=== PATIENT | female | born 1945 | race Caucasian/White ===

== ENCOUNTER → 2016-07-18 | Outpatient (CLI) | payer OTHER ==
[~2016-07-18] MED LIST: ACET-1256 PO; ASPI81TA28 PO; ATEN50TA8 PO; CALC-51 PO; CLIN150C PO; DIPH25TA61 PO; FLUT0.15 NAE; GLUCTAB18 PO; HYOS1TAB PO; LEVO150T9 PO; LISI-461 PO; LTRCR30 TOP; MISCCAP80 PO; MULT-506 PO; PSYL0.524 PO; RANI300T2 PO; SIMV40TA2 PO; ULT50X PO; VITAMIN D PO
--- NOTE | 2016-07-18 13:24 | MAMMOGRAPHY REPORT ---
BILATERAL DIGITAL SCREENING MAMMOGRAM TOMOSYNTHESIS WITH CAD: 07/18/2016 CLINICAL HISTORY: Routine screening. Patient has no complaints. TECHNIQUE: Breast tomosynthesis in addition to standard 2D mammography was performed. Current study was also evaluated with a Computer Aided Detection (CAD) system. COMPARISON: Comparison is made to exams dated: 07/16/2015 mammogram, 07/10/2014 mammogram, 06/13/2013 m ammogram, 10/25/2009 mammogram - [facility], and 10/23/2008. BREAST COMPOSITION: There are scattered areas of fibroglandular density in both breasts. FINDINGS: No suspicious masses, calcifications, or areas of architectural distortion are noted in e ither breast. There has been no significant interval change compared to prior exams. There are stab le postsurgical changes in the right lower inner quadrant from prior lumpectomy; a linear scar marke r denotes a scar on the right breast. Faint focal asymmetry in the left upper outer quadrant is sta ble dating back to the 2007 exam. A few scattered bilateral benign-appearing calcifications are not significantly changed. IMPRESSION: ACR BI-RADS CATEGORY 2: BENIGN There is no mammographic evidence of malignancy. A 1 year screening mammogram is recommended. The p atient will receive written notification of the results. Approximately 10% of breast cancers are not detected with mammography. A negative mammographic repor t should not delay biopsy if a clinically suggestive mass is present. Jasmina Sun M.D. /:07/18/2016 10:38:36 Bioinformatics Associate: Tana Leonard, [facility] letter sent: Normal 1/2 BI-RADS Code: ACR BI-RADS Category 2: Benign
== END | disposition home or self-care (01) ==
LOC: C.MAMM 09:18
PROVIDERS: ATTEND Family Medicine
DX: Z12.31 Encounter for screening mammogram for malignant neoplasm of breast (principal); Z85.3 Personal history of malignant neoplasm of breast

== ENCOUNTER 2016-08-11 08:02 | Inpatient (IN) | payer OTHER ==
[2016-07-13 10:19] VITALS: BMI 28.0
--- NOTE | 2016-07-13 10:52 | PAT Medication Instructions ---
Service Date Jul 13, 2016. Current Home Medication List Acetaminophen (Tylenol), 1,000 MG PO PRN Aspirin (Aspirin Ec), 81 MG PO QPM Atenolol (Tenormin), 50 MG PO QAM Clindamycin Hcl (Cleocin), 600 MG PO UD PRN for N Clotrimazole (Lotrimin 1%), 1 DOSE TOP PRN Diphenhydramine Hcl (Allergy), 25 MG PO PRN Fluticasone Propionate (Nasal) (Flonase Allergy Relief), 2 SPRAYS ANDRES PN Glucosamine-Chondroitin (Osteo Bi-Flex Regular Str), 1 TAB PO QPM Hyoscyamine Sulfate (Levsin), 150 MG PO PRN Levothyroxine Sodium (Levothyroxine Sodium), 1 TAB PO QAM Lisinopril (Zestril), 10 MG PO QAM Multivitamin (Multivitamin), 1 TAB PO QAM Probiotic Product (Probiotic), 1 TAB PO NOON Psyllium (Metamucil), 1 DOSE PO PRN Ranitidine (Zantac), 300 MG PO BID PRN for RN Simvastatin (Zocor), 40 MG PO QPM [Calcium], 600 MG PO QPM [Vitamin D], 400 PO QPM Medication Instructions For Your Scheduled Surgery Clindamycin Hcl (Cleocin), 600 MG PO UD PRN for N (patient only take prior to dental procedures) - Hold the following medications 2 weeks prior to surgery: Glucosamine-Chondroitin (Osteo Bi-Flex Regular Str), 1 TAB PO QPM - Hold the following medications 24 hours prior to surgery: Clotrimazole (Lotrimin 1%), 1 DOSE TOP PRN - Hold the following medications the morning of surgery: Ranitidine (Zantac), 300 MG PO BID PRN for RN Psyllium (Metamucil), 1 DOSE PO PRN Probiotic Product (Probiotic), 1 TAB PO NOON Multivitamin (Multivitamin), 1 TAB PO QAM Lisinopril (Zestril), 10 MG PO QAM Hyoscyamine Sulfate (Levsin), 150 MG PO PRN Fluticasone Propionate (Nasal) (Flonase Allergy Relief), 2 SPRAYS ANDRES PN Diphenhydramine Hcl (Allergy), 25 MG PO PRN - Take the following medications the morning of surgery with a sip of water: Levothyroxine Sodium (Levothyroxine Sodium), 1 TAB PO QAM Atenolol (Tenormin), 50 MG PO QAM Acetaminophen (Tylenol), 1,000 MG PO PRN - Take the following medications as scheduled the night before surgery: [Calcium], 600 MG PO QPM [Vitamin D], 400 PO QPM Simvastatin (Zocor), 40 MG PO QPM Ranitidine (Zantac), 300 MG PO BID PRN for RN Hyoscyamine Sulfate (Levsin), 150 MG PO PRN Psyllium (Metamucil), 1 DOSE PO PRN Fluticasone Propionate (Nasal) (Flonase Allergy Relief), 2 SPRAYS ANDRES PN Diphenhydramine Hcl (Allergy), 25 MG PO PRN Acetaminophen (Tylenol), 1,000 MG PO PRN Aspirin (Aspirin Ec), 81 MG PO QPM (okay to continue per surgeon) If you have any questions please call us at [phone] (Erin Busby PA-C) or [phone] or [phone]
--- NOTE | 2016-07-13 11:23 | DIAGNOSTIC IMAGING REPORT ---
CHEST PREADMISSION(PA/LAT) CLINICAL HISTORY: PAT preoperative evaluation COMPARISON STUDY: 03/11/2013 FINDINGS: The bones soft tissues and hemidiaphragms are normal. The cardiomediastinal silhouette is normal. The lungs are clear. The pulmonary vasculature is normal. IMPRESSION: Negative chest. Electronically signed by: Mal Contreras M.D. 07/13/2016 11:21 AM Dictated Date/Time: 07/13/2016 11:20 AM
[2016-07-13 11:29] LABS: URINE APPEARANCE CLEAR (CLEAR); URINE BILIRUBIN NEG (NEG); URINE COLOR YELLOW; URINE EPITHELIAL CELL AUTO 0-5 /lpf (0-5); URINE NITRITE NEG (NEG); URINE PH 5.5 (4.5-7.5); URINE SPECIFIC GRAVITY 1.001 (1.000-1.030); UROBILINOGEN NEG (NEG)
[2016-07-13 11:31] LABS: BASO % 0.6 %; BASO ABS # 0.03 K/uL (0-0.2); COMPLETE YES; EOS % 5.5 %; HEMATOCRIT 40.2 % (37-47); IG% 0.2 %; LYMPH % 29.3 %; LYMPH ABS # 1.38 K/uL (1.2-3.4); MEAN CELL VOLUME 91.4 fL (80-100); MEAN CORPUSCULAR HEMOGLOBIN 30.9 pg (25-34); MEAN CORPUSCULAR HGB CONC 33.8 g/dl (32-36); MEAN PLATELET VOLUME 10.7 fL (7.4-10.4); MONO % 9.3 %; NEUT % 55.1 %; PLATELET COUNT 231 K/uL (130-400); WHITE BLOOD COUNT 4.71 K/uL (4.8-10.8)
[2016-07-13 11:36] LABS: MANUAL MICROSCOPIC REQUIRED? NO; REVIEW REQ? NO
[2016-07-13 11:39] LABS: INR 0.9 (0.9-1.1); PARTIAL THROMBOPLASTIN RATIO 1.1; PROTHROMBIN TIME (PATIENT) 10.1 SECONDS (9.0-12.0)
[2016-07-13 11:43] LABS: BUN/CREATININE RATIO 17.7 (10-20); CALCIUM 9.2 mg/dl (8.5-10.1); CREATININE 0.62 mg/dl (0.60-1.20)
--- NOTE | 2016-08-09 17:22 | HISTORY & PHYSICAL EXAMINATION ---
DATE OF ADMISSION: 08/11/2016 CHIEF COMPLAINT: Primary osteoarthritis of the right knee. HISTORY OF PRESENT ILLNESS: Dennise is a pleasant 71-year-old female who has been complaining of progressive right knee pain. X-rays and clinical examination have been diagnostic for primary osteoarthritis of the right knee. After failing years of conservative treatment including multiple injections, she elected to proceed with a right total knee arthroplasty. She understands the risks, benefits, and alternatives to procedure and then elected to proceed. PAST MEDICAL HISTORY: Significant for hyperlipidemia, hypertension, breast cancer and ulcers. PAST SURGICAL HISTORY: Significant for a left total shoulder arthroplasty in 2012, left total knee arthroplasty, cholecystectomy, breast cancer removal, hernia repair and hysterectomy. ALLERGIES: PENICILLINS. MEDICATIONS: Include atenolol, lisinopril, Synthroid, anastrozole. aspirin, Osteo Bi-Flex, calcium, vitamin D, antihistamine, Nexium, Naprosyn and Aleve. FAMILY HISTORY: Noncontributory. SOCIAL HISTORY: She is . She rarely drinks. She is moderately active. She is an independent ambulator without assistance. REVIEW OF SYSTEMS: She complains of right knee pain. All other pertinent review of systems is negative. PHYSICAL EXAMINATION: GENERAL: She is awake, alert and oriented x3. She is in no apparent distress. She is very pleasant. HEENT: Pupils equal, round and reactive to light. Extraocular motion intact. Oral mucosa is pink and moist. HEART: Regular rate per radial pulse. LUNGS: Astrid symmetrically bilaterally with no audible breath sounds. ABDOMEN: Soft, nontender, and nondistended. MUSCULOSKELETAL: On physical examination of her right knee, she does ambulate independently. She has no swelling or effusion. She has good motion from 0-130 degrees. She has no instability. She has tenderness to palpation over the lateral joint line and the distal lateral femoral condyle. No pain with hip motion. X-RAYS: Radiographs performed of the right knee show a slight valgus deformity with mostly lateral compartmental arthritis. There is a loss of joint space in the lateral compartment and lateral-sided osteophyte formation. IMPRESSION: Osteoarthritis of the right knee. PLAN: We will proceed with a Biomet Vanguard right total knee arthroplasty. Postoperatively, she will be kept for 2 midnights in the hospital for postoperative medical management. We will start her on aspirin 325 mg twice a day postoperatively for DVT prophylaxis. MTDD
[~2016-08-11] VITALS: Ht 162.6 cm; Wt 75.5 kg
[2016-08-11] VITALS (8 sets, daily range): BP systolic 115–173; BP diastolic 67–88; PULSE 49–60; TEMP 35.6–36.8; O2SAT 96–100; Ht 162.6 cm; Wt 75.5 kg
[~2016-08-11 08:02] MED LIST changes: +ACETAMINOPHEN 500 MG TAB PO SCH; +BUPIVACAINE 0.5 % 5 MG/1 ML PF 10ML VIAL ONE; +BUPIVACAINE/EPINEPHRINE 0.25% 1:200,000 30 ML VIAL ONE; +FAMOTIDINE 20 MG TAB PO SCH; +GABAPENTIN 300 MG CAP PO SCH; +LACTATED RINGER'S 1000ML 1,000 ML IV SCH; +LACTATED RINGER'S 1000ML IV SCH; +ROPIVACAINE 5MG/ML 30 ML 150 MG, BUPIVACAINE/EPINEPHR 0.5% MPF 30 ML, KETOROLAC TROMETH... INFIL SCH; -ULT50X PO; +VANCOMYCIN INJ 1,150 MG in SODIUM CHLORIDE 0.9% 250ML 250 ML IV SCH
[2016-08-11] MEDS ORDERED: MIDAZOLAM HCL 1 MG/ML 2ML VIAL ONE (08:42)
[2016-08-11] MEDS ORDERED: ONDANSETRON INJ 2 MG/ML 2 ML VIAL ONE (08:42)
[2016-08-11] MEDS ORDERED: FENTANYL CITRATE INJ 50 MCG/1 ML 2 ML VIAL ONE (08:42)
[2016-08-11] MEDS ORDERED: PROPOFOL IV EMULSION 10 MG/ML 20 ML VIAL IV ONE (08:42)
--- NOTE | 2016-08-11 08:59 | History & Physical Bridge Note ---
H&P Re-Evaluation Bridge Note: I have examined the patient, reviewed the History & Physical and in the interval since the performance of the History & Physical I have noted the following changes of clinical significance: No changes noted
[2016-08-11] MEDS ORDERED: ORTHO JOINT ANESTHETIC ONE (09:44)
[2016-08-11] MEDS ORDERED: BACITRACIN 50000 UNIT VIAL ONE (09:44)
[2016-08-11] MEDS ORDERED: FENTANYL CITRATE INJ 50 MCG/1 ML 2 ML VIAL IV PRN (09:45)
[2016-08-11] MEDS ORDERED: EpHEDrine SULFATE INJ 50 MG/ML AMP IV PRN (09:45)
[2016-08-11] MEDS ORDERED: ATROPINE SULFATE 0.1 MG/ML 5ML SYR IV PRN (09:45)
[2016-08-11] MEDS ORDERED: HYDROmorphone INJ 2 MG/ML SYR/VIAL IV PRN (09:45)
[2016-08-11] MEDS ORDERED: MEPERIDINE HCL 25 MG/ML CARP IV PRN (09:45)
[2016-08-11] MEDS ORDERED: FLUMAZENIL 0.1 MG/1 ML 10 ML VIAL IV PRN (09:45)
[2016-08-11] MEDS ORDERED: ONDANSETRON INJ 2 MG/ML 2 ML VIAL IV PRN ×2 (09:45→13:15)
[2016-08-11] MEDS ORDERED: PHENYLEPHRINE 100MCG/ML 5ML SYR IV PRN (09:45)
[2016-08-11] MEDS ORDERED: LABETALOL HCL IV 5 MG/ML 20ML IV PRN (09:45)
[2016-08-11] MEDS ORDERED: NALOXONE HCL 0.4 MG/1 ML VIAL/CARP IV PRN (09:45)
[2016-08-11] MEDS: TRANEXAMIC ACID INJ 1,000 MG in SODIUM CHLORIDE 0.9% 100ML 100 ML IV SCH ×2 (11:17→15:28)
[2016-08-11] MEDS ORDERED: CEFAZOLIN IV 2,000 MG/60 ML D5W IV ONE (11:25)
[2016-08-11] MEDS ORDERED: NURSING VERBAL MED ORDER STA (11:32)
[2016-08-11] MEDS ORDERED: EpHEDrine SULFATE 50MG/5ML SYR ONE (12:04)
--- NOTE | 2016-08-11 13:01 | [facility] Post Operative Brief Note ---
Immediate Operative Summary Operative Date Aug 11, 2016. Pre-Operative Diagnosis Primary osteoarthritis of the right knee Post-Operative Diagnosis Primary osteoarthritis of the right knee Procedure(s) Performed Right Total Knee Arthroplasty Surgeon Dr Forbes Contour Grinder Surgeon(s) Tejas Joseph PA-C Estimated Blood Loss 200ml Findings as above Specimens A: Right knee bone and tissue Complication(s) None Disposition Recovery Room / PACU
[2016-08-11] MEDS ORDERED: MAGNESIUM HYDROXIDE SUSP 30 ML UDC PO PRN (13:15)
[2016-08-11] MEDS ORDERED: SILVER SULFADIAZINE 1% CR 50 GM JAR EXT PRN (13:15)
[2016-08-11] MEDS ORDERED: HYOSCYAMINE SULFATE 0.125 MG SL TAB PO PRN (13:15)
[2016-08-11] MEDS ORDERED: BISACODYL 10 MG SUPP PR PRN (13:15)
[2016-08-11] MEDS ORDERED: MoRPHine SULFATE 2 MG/ML CARP IV PRN (13:15)
[2016-08-11] MEDS ORDERED: SOD PHOSPHATE/SOD BIPHOSPHATE ENEMA 132 ML BTL PR PRN (13:15)
[2016-08-11] MEDS ORDERED: METOCLOPRAMIDE HCL INJ 5 MG/ML 2 ML VIAL IV PRN (13:15)
[2016-08-11] MEDS ORDERED: OXYCODONE HCL IR 5 MG TAB (IMMEDIATE RELEASE) PO PRN (13:15)
--- NOTE | 2016-08-11 13:47 | DIAGNOSTIC IMAGING REPORT ---
RIGHT KNEE 1 OR 2 VIEWS ROUTINE CLINICAL HISTORY: AP/LATERAL IN PACU RIGHT KNEE Right COMPARISON: None. DISCUSSION: Total joint replacement. Good contact between prosthetic and underlying bone. Surgical drains are in position. Expected soft tissue postoperative change IMPRESSION: Anatomic alignment status post total joint replacement. Electronically signed by: Mal Contreras M.D. 08/11/2016 1:46 PM Dictated Date/Time: 08/11/2016 1:45 PM
--- NOTE | 2016-08-11 13:57 | Anesthesiology Progress Note ---
Anesthesia Post Op Note Date & Time Aug 11, 2016 at 13:58 Vital Signs Pain Intensity: 0 Vital Signs Past 12 Hours Date Time Temp Pulse Resp B/P Pulse Ox O2 Delivery O2 Flow Rate FiO2 08/11/16 13:51 52 16 127/61 99 08/11/16 13:51 52 16 08/11/16 13:46 50 17 08/11/16 13:46 52 17 100 08/11/16 13:45 134/64 08/11/16 13:41 58 17 122/63 100 08/11/16 13:41 56 17 08/11/16 13:36 36.5 59 16 131/72 97 Nasal Cannula 2 08/11/16 13:36 55 14 08/11/16 13:36 56 14 131/72 98 08/11/16 08:41 36.8 60 16 173/88 99 Room Air Notes Mental Status: alert / awake / arousable, participated in evaluation Pt Amnestic to Procedure: Yes Nausea / Vomiting: adequately controlled Pain: adequately controlled Airway Patency, RR, SpO2: stable & adequate BP & HR: stable & adequate Hydration State: stable & adequate Neuraxial Anesthesia: was administered, sensory block is resolving Anesthetic Complications: no major complications apparent
--- NOTE | 2016-08-11 16:42 | OPERATIVE REPORT ---
DATE OF OPERATION: 08/11/2016 PREOPERATIVE DIAGNOSIS: Primary osteoarthritis of the right knee. POSTOPERATIVE DIAGNOSIS: Same. PROCEDURE: Right total knee arthroplasty. SURGEON: Dr. Elliott Forbes. DIRECTOR PHYSICAL THERAPY: Tejas Joseph PA-C, whose assistance was necessary for positioning of the leg and helping with instrumentation. ANESTHESIA: Spinal with a right adductor nerve block. COMPLICATIONS: None. CONDITION: Stable to PACU. IMPLANTS USED: I used a Biomet Vanguard right total knee arthroplasty system with a 67.5 right femur, 71 tibia, a 31 x 8 mm patella and a 10-mm posterior stabilized bearing. All components were cemented with Palacos-G cement. INDICATIONS: Dennise is a pleasant 71-year-old female who presented to my office with increasing right knee pain. X-rays and clinical examination were diagnostic for primary osteoarthritis of the right knee. After failing conservative treatment, she elected to undergo a right total knee arthroplasty. OPERATION AND FINDINGS: On 08/11/2016, she arrived at [facility] for the above procedure. She was seen in the preoperative holding area and the operative extremity was identified and signed. She was given a preoperative antibiotic and a spinal anesthetic and a right adductor nerve block. She was taken back to the operating room, laid on the table in supine position and given basic sedation. The right knee was then prepped and draped in sterile fashion. Time-out was done and the patient and operative extremity was properly identified. A midline incision was used directly over the patella. Dissection was taken down through the fascia and a medial parapatellar arthrotomy was used. The fat pad was removed and the medial retinaculum was released. The knee was then flexed. Medial and lateral menisci as well as the ACL were then removed. A drill was sent down the center of the femoral canal followed by an intramedullary mahin. Off that mahin, a distal femoral cutting block was placed. An 11-mm was resected off the distal femur. A posterior referencing guide was used to measure the distal femur and the distal femur measured to be a 67.5. Two drill holes were placed in 3 degrees of external rotation and 4-in-1 cutting block was impacted into place. Anterior, posterior and chamfer cuts were then made. A cutting guide was then impacted into place and the box was resected for the posterior stabilizing component. The proximal tibia was then exposed. A drill was sent down the center of the tibial canal followed by an intramedullary mahin. Off that mahin, a proximal tibial resection guide was placed. A 2 mm was resected off the low medial side. The tibia then measured to be a size 71 and was set in the appropriate rotation, drilled and then punched. The femoral and tibial trials were placed as well as a 10-mm posterior stabilized bearing. The knee felt to be stable. The patella was then everted and 8 mm was resected off the posterior aspect of the patella. The patella measured to be a size 31 and 3 drill holes were placed. A trial patella was snapped into place. The knee was brought through full range of motion and felt to be stable. All trial components were then removed. The final components were then cemented in place with Palacos-G cement. Several polyethylene trials were used and a size 10 seemed to give the best fit. The final size 10 bearing was snapped into place and the anterior bar was locked. The surrounding soft tissues were irrigated with 3 liters of normal saline solution with bacitracin. All surrounding soft tissues were then injected with 100 mL of an orthopedic pain control cocktail. The extensor mechanism was closed with #2 FiberWire sutures in the superior aspect of the patella, followed by #1 Vicryl, both proximally and distally. Skin was closed with 2-0 Vicryl, 3-0 V-Loc suture and a Prineo dressing. She was then placed in a compressive dressing and taken to the postanesthesia care unit in stable condition. She tolerated the procedure well. I attest to the content of the Intraoperative Record and any orders documented therein. Any exceptio ns are noted below.
[2016-08-11] MEDS: D5W AND 1/2NSS + 20MEQ KCL 1,000 ML IV SCH (17:00)
[2016-08-11] MEDS ORDERED: ACETAMINOPHEN IV 1,000 MG in EMPTY BAG 0 ML IV SCH (20:00)
[2016-08-11] MEDS: SIMVASTATIN 40 MG TAB PO SCH (20:27)
[2016-08-11] MEDS: ASPIRIN 325 MG ECTAB PO SCH (20:27)
[2016-08-11] MEDS: SENNA 8.6 MG TAB PO SCH (20:28)
[2016-08-11] MEDS: DOCUSATE SODIUM 100 MG CAP PO SCH (20:28)
[2016-08-11] MEDS: CEFAZOLIN IV 1,000 MG in DEXTROSE 5% 50ML 50 ML IV SCH (22:04)
[2016-08-11] MEDS: KETOROLAC TROMETHAMINE 15 MG/ML VIAL IV. SCH (22:05)
[2016-08-11] MEDS ORDERED: NURSING VERBAL MED ORDER ONE (23:15)
[2016-08-11] MEDS ORDERED: TRAMADOL HCL 50 MG TAB PO PRN (23:45)
[2016-08-12] VITALS (7 sets, daily range): BP systolic 91–126; BP diastolic 54–84; PULSE 58–83; TEMP 36.5–37.4; O2SAT 94–98
[2016-08-12] MEDS: D5W AND 1/2NSS + 20MEQ KCL 1,000 ML IV SCH ×2 (01:49→11:20)
[2016-08-12] MEDS: CEFAZOLIN IV 1,000 MG in DEXTROSE 5% 50ML 50 ML IV SCH (03:51)
[2016-08-12] MEDS: KETOROLAC TROMETHAMINE 15 MG/ML VIAL IV. SCH ×4 (03:52→21:39)
[2016-08-12] MEDS: LEVOTHYROXINE 150 MCG TAB PO SCH (05:35)
[2016-08-12 06:11] LABS: HEMATOCRIT 30.8 % (37-47); MEAN CELL VOLUME 92.2 fL (80-100); MEAN CORPUSCULAR HEMOGLOBIN 30.5 pg (25-34); MEAN CORPUSCULAR HGB CONC 33.1 g/dl (32-36); MEAN PLATELET VOLUME 10.8 fL (7.4-10.4); PLATELET COUNT 184 K/uL (130-400); RED BLOOD COUNT 3.34 M/uL (4.2-5.4)
[2016-08-12 06:46] LABS: BUN/CREATININE RATIO 16.4 (10-20); CALCIUM 8.4 mg/dl (8.5-10.1); CREATININE 0.57 mg/dl (0.60-1.20); POTASSIUM 4.5 mmol/L (3.5-5.1)
[2016-08-12] MEDS: MULTIVITAMIN TAB PO SCH (08:28)
[2016-08-12] MEDS: ASPIRIN 325 MG ECTAB PO SCH ×2 (08:28→20:50)
[2016-08-12] MEDS: DOCUSATE SODIUM 100 MG CAP PO SCH ×2 (08:28→20:50)
[2016-08-12] MEDS: PANTOprazole SOD 40 MG TAB PO SCH (08:28)
[2016-08-12] MEDS: LISINOPRIL 10 MG TAB PO SCH (08:30)
[2016-08-12] MEDS ORDERED: NURSING VERBAL MED ORDER ONE (09:00)
--- NOTE | 2016-08-12 09:04 | PROGRESS NOTE ---
DATE: 08/12/2016 DATE: 08/12/2016. CHIEF COMPLAINT: Status post right total knee arthroplasty postop day #1. PROGRESS: Dennise was seen and examined at bedside today. Overall, she is doing very well. She says she has very little pain in her knee. She was able to get some sleep last night. She has no complaints. PHYSICAL EXAMINATION: RIGHT KNEE: The dressing is clean and dry and the drain is to suction. She has active dorsiflexion and plantarflexion of her right ankle and sensation is intact. LABORATORY DATA: She has an H\T\H today of 10.2 and 30.8. Her vital signs are all stable on room air. She is voiding on her own. X-rays postoperatively of the right knee show the prosthesis to be in anatomic alignment without any evidence of fracture, dislocation or loosening. IMPRESSION: Status post right total knee arthroplasty postop day #1. PLAN: At this point, she is doing very well. She will be seen by physical therapy today and will work on pain control. Tomorrow the nursing staff can change the dressing, pull the drain and we are planning on discharging her to home with [facility].
[2016-08-12] MEDS: LORATADINE 10 MG TAB PO PRN (09:15)
[2016-08-12] MEDS: HYDROCODONE/ACETAMOPHEN 5/325MG TAB PO PRN ×2 (11:21→20:51)
[2016-08-12] MEDS: SENNA 8.6 MG TAB PO SCH (20:50)
[2016-08-12] MEDS: SIMVASTATIN 40 MG TAB PO SCH (21:35)
[2016-08-13] VITALS (7 sets, daily range): BP systolic 83–133; BP diastolic 51–78; PULSE 71–84; TEMP 36.8; O2SAT 95–99
[2016-08-13] MEDS: KETOROLAC TROMETHAMINE 15 MG/ML VIAL IV. SCH ×2 (03:59→10:35)
[2016-08-13] MEDS: LEVOTHYROXINE 150 MCG TAB PO SCH (05:35)
[2016-08-13] MEDS: LISINOPRIL 10 MG TAB PO SCH (07:54)
[2016-08-13] MEDS: MULTIVITAMIN TAB PO SCH (07:54)
[2016-08-13] MEDS: PANTOprazole SOD 40 MG TAB PO SCH (07:54)
[2016-08-13] MEDS: LORATADINE 10 MG TAB PO PRN (07:55)
[2016-08-13] MEDS: ASPIRIN 325 MG ECTAB PO SCH (08:28)
[2016-08-13] MEDS: DOCUSATE SODIUM 100 MG CAP PO SCH (08:28)
[2016-08-13] MEDS ORDERED: ULT50X PO (09:28)
--- NOTE | 2016-08-13 09:29 | Discharge Instructions ---
Discharge Instructions Date of Service Aug 13, 2016. Admission Reason for Admission: Right Knee Osteoarthritis Discharge Discharge Diagnosis / Problem: Right Total Knee Discharge Goals Goal(s): Decrease discomfort, Improve function Activity Recommendations Activity Limitations: resume your previous activity Shower/Bathe: may shower/bathe in 3 days . Instructions / Follow-Up Instructions / Follow-Up may shower tomorrow, leave glue dressing in place Current Hospital Diet Patient's current hospital diet: Regular Diet Discharge Diet Recommended Diet: Regular Diet Procedures Procedures Performed: Right Total Knee Arthroplasty Pending Studies Studies pending at discharge: no Medical Emergencies . Who to Call and When: Medical Emergencies: If at any time you feel your situation is an emergency, please call 911 immediately. . Non-Emergent Contact Non-Emergency issues call your: Surgeon Call Non-Emergent contact if: wound has increased drainage, wound has increased redness . "Provider Documentation" section prepared by Elliott Forbes. VTE Core Measure Inpt VTE Proph given/why not?: Other Anticoagulation (Xerelto 10mg daily for 12 days)
--- NOTE | 2016-08-13 10:04 | PROGRESS NOTE ---
DATE: 08/13/2016 CHIEF COMPLAINT: Status post right total knee arthroplasty, postop day #1. PROGRESS: Dennise was seen and examined at bedside today. She is doing well now. She did have an episode of hypotension and lightheadedness earlier this morning. She got up and got dressed and was doing fine and when she went to get her chair, she felt very lightheaded. The nursing staff put her in bed. Vital signs showed some hypotension and I was called. Since she is lying in bed, she is feeling much better. Her pain is well controlled. She has no other complaints. PHYSICAL EXAMINATION: RIGHT KNEE: The dressing has been changed and the drain has been pulled. Her knee is out in full extension. She is neurovascularly intact. VITAL SIGNS: Currently are stable on room air. IMPRESSION: Status post right total knee arthroplasty, postop day #2. PLAN: Overall, she has been doing fairly well. She did have a hypotensive episode this morning. She was just recently up with physical therapy and able to do stairs. I want to keep her until after lunch if her vital signs continued to be stable. As she was able to get up and ambulate well after lunch, I think she is safe for discharge home. However, if she does have any more hypotensive episode and I think it is reasonable to keep until tomorrow. Tentative discharge is for today after lunch. CHERYL
--- NOTE | 2016-08-13 10:47 | DISCHARGE SUMMARY ---
DISCHARGE DIAGNOSIS: Primary osteoarthritis of the right knee. PROCEDURE: Right total knee arthroplasty on 08/11/[address] Elliott Forbes. DISCHARGE INSTRUCTIONS: 1. Tramadol 50 mg every 6 hours as needed for pain. 2. Xarelto 10 mg daily for 12 days. 3. JAZMYN hose stockings for 6 weeks. 4. Follow up with Dr. Forbes in 2 weeks. 5. Call the office of Dr. Forbes with any questions or concerns. 6. Tylenol 1000 mg as needed. 7. Atenolol 50 mg daily. 8. Cleocin 600 mg as needed. 9. Kizzy 25 mg as needed. 10. Flonase 50 mcg sprays as needed. 11. Levsin 0.125 mg as needed. 12. Synthroid 150 mcg daily. 13. Zestril 10 mg daily. 14. Zocor 40 mg daily. 15. Calcium 600 mg daily. 16. Vitamin D 400 units daily. 17. Stop aspirin 81 mg daily and Zantac 300 mg twice a day. HOSPITAL COURSE: Dennise is a pleasant 71-year-old female who presented to my office with chronic right knee pain. X-rays and clinical examination were diagnostic for primary osteoarthritis of the right knee. After failing conservative treatment, she elected to undergo a right total knee arthroplasty. On 08/11/2016 she arrived at [facility] and underwent a right knee replacement without complications. She had a spinal anesthetic and a right adductor nerve block. Postoperatively, she was discharged to general orthopedic floor. Her hospital course was relatively uneventful. On postop day #1, her H\T\H was stable at 10.2 and 30.8. Her pain was well controlled. She was up and ambulating well with physical therapy. On postop day #2, the dressing was changed, the drain was pulled. She did have a hypotensive episode early in the morning, but she recovered well from that. She was able to participate well with physical therapy including stairs and I kept her until after lunch. She seemed to do better, was subsequently discharged to home with the above instructions.
== END 2016-08-13 13:52 | disposition home or self-care (01) | DRG 470 ==
LOC: ENRESERVTM → ENRESERVDT → C.ACU 08:02 → C.3E 13:06
PROVIDERS: ADMIT Orthopaedic Surgery; ATTEND Orthopaedic Surgery
PROC: 0SRC0J9 Replacement of Right Knee Joint with Synthetic Substitute, Cemented, Open Approach (ICD-10-PCS; principal; 2016-08-11 11:00)
DX: M17.11 Unilateral primary osteoarthritis, right knee (principal); I10 Essential (primary) hypertension; E78.5 Hyperlipidemia, unspecified; Z85.3 Personal history of malignant neoplasm of breast; Z96.652 Presence of left artificial knee joint; Z79.899 Other long term (current) drug therapy

== ENCOUNTER → 2017-07-19 | Outpatient (CLI) | payer OTHER ==
[~2017-07-19] MED LIST changes: -ACETAMINOPHEN 500 MG TAB PO SCH; -ASPI81TA28 PO; -BUPIVACAINE 0.5 % 5 MG/1 ML PF 10ML VIAL ONE; -BUPIVACAINE/EPINEPHRINE 0.25% 1:200,000 30 ML VIAL ONE; -FAMOTIDINE 20 MG TAB PO SCH; -GABAPENTIN 300 MG CAP PO SCH; -LACTATED RINGER'S 1000ML 1,000 ML IV SCH; -LACTATED RINGER'S 1000ML IV SCH; -RANI300T2 PO; -ROPIVACAINE 5MG/ML 30 ML 150 MG, BUPIVACAINE/EPINEPHR 0.5% MPF 30 ML, KETOROLAC TROMETH... INFIL SCH; +ULT50X PO; -VANCOMYCIN INJ 1,150 MG in SODIUM CHLORIDE 0.9% 250ML 250 ML IV SCH
--- NOTE | 2017-07-19 15:08 | MAMMOGRAPHY REPORT ---
BILATERAL DIGITAL SCREENING MAMMOGRAM TOMOSYNTHESIS WITH CAD: 07/19/2017 CLINICAL HISTORY: Routine screening. Patient has no complaints. TECHNIQUE: Breast tomosynthesis in addition to standard 2D mammography was performed. Current study was also evaluated with a Computer Aided Detection (CAD) system. COMPARISON: Comparison is made to exams dated: 07/18/2016 mammogram, 07/16/2015 mammogram, 07/10/2014 ma mmogram, 06/13/2013 mammogram, and 06/12/2012 mammogram - [facility]. BREAST COMPOSITION: There are scattered areas of fibroglandular density in both breasts. FINDINGS: No suspicious masses, calcifications, or areas of architectural distortion are noted in ei ther breast. There has been no significant interval change compared to prior exams. There are stable postsurgical changes in the right breast from prior lumpectomy. A few scattered bilateral benign-ap pearing calcifications are again noted. Asymmetries in bilateral lateral breasts are stable. IMPRESSION: ACR BI-RADS CATEGORY 2: BENIGN There is no mammographic evidence of malignancy. A 1 year screening mammogram is recommended. The pa tient will receive written notification of the results. Approximately 10% of breast cancers are not detected with mammography. A negative mammographic report should not delay biopsy if a clinically suggestive mass is present. Jasmina Sun M.D. /:07/19/2017 12:21:21 Yeast Distiller: Kelly NAVARRO)(German), [facility] letter sent: Normal 1/2 BI-RADS Code: ACR BI-RADS Category 2: Benign
== END | disposition home or self-care (01) ==
LOC: C.MAMM 09:01
PROVIDERS: ATTEND Family Medicine
DX: Z12.31 Encounter for screening mammogram for malignant neoplasm of breast (principal); Z85.3 Personal history of malignant neoplasm of breast

== ENCOUNTER 2019-06-06 04:46 | Inpatient (IN) ==
--- NOTE | 2019-06-05 10:03 | Anesthesiology Consultation ---
Date of Service June 05, 2019 Assessment & Plan (1) Encounter for pre-operative examination: Chart Review Chart Review: Acceptable Risk for Surgery, barber tool sharpener initiated (from #[id number]) and Patient seen in Pre Admission Testing History Surgery Operation Date: 06/06/19 07:00 Proposed Procedures p Right Anterior Total Hip Arthroplasty - Elliott Forbes, DO Height/Weight Height: 5 ft 4.5 in Weight: 79 kg Allergies Allergy/AdvReac Type Severity Reaction Status Date / Time adhesive Allergy Intermediate bandaids- Verified 06/06/19 05:42 redness, pruritus Penicillins Allergy Mild rash, Verified 06/06/19 05:42 mouth sores Medications Home Medications Medication Instructions Recorded Confirmed Last Taken Calcium 600 + D(3) 1 cap PO QAM 08/05/18 06/06/19 06/05/19 18:00 aspirin [Aspir-Low] 81 mg PO 08/05/18 06/06/19 06/05/19 18:00 atenolol 50 mg PO QAM 08/05/18 06/06/19 06/06/19 03:00 glucosamine-chondroitin [Osteo 1 tab PO QAM 08/05/18 06/06/19 05/23/19 18:00 Bi-Flex] levothyroxine 150 mcg PO QAM 08/05/18 06/06/19 06/06/19 03:00 lisinopril 10 mg PO QAM 08/05/18 06/06/19 06/05/19 08:00 multivitamin 1 tab PO QDD 08/05/18 06/06/19 06/05/19 18:00 simvastatin 40 mg PO 08/05/18 06/06/19 06/05/19 18:00 diphenhydramine HCl 25 mg PO Q6H PRN 04/02/19 06/06/19 Unknown hyoscyamine sulfate 0.125 mg PO Q4H PRN 04/02/19 06/06/19 06/05/19 18:00 Active Medications Generic Name Dose Route Start Last Admin Trade Name Freq PRN Reason Stop Dose Admin Acetaminophen 1,000 mg 06/06/19 06:00 06/06/19 05:57 Tylenol PO 06/06/19 18:00 1,000 mg PREOP BELKIS Administration Famotidine 20 mg 06/06/19 06:00 06/06/19 05:57 Pepcid PO 06/06/19 18:00 20 mg PREOP BELKIS Administration Gabapentin 300 mg 06/06/19 06:00 06/06/19 05:56 Neurontin PO 06/06/19 18:00 300 mg PREOP BELKIS Administration Lactated Ringer's 1,000 mls @ 15 mls/hr 06/06/19 06:00 06/06/19 05:56 Lr IV 06/06/19 18:00 15 mls/hr .Q24H BELKIS Administration Lactated Ringer's 1,000 mls @ 60 mls/hr 06/06/19 06:00 06/06/19 06:16 Lr IV 06/06/19 22:39 Not Given .[id number] BELKIS Past Medical History Medical History Hx of deep venous thrombosis post-op left knee (2006) HX: breast cancer right s/p lumpectomy/XRT (2009) Hyperlipidemia Hypertension Hypothyroidism IBS (irritable bowel syndrome) Osteoarthritis Exercise / Class Metabolic Activity II 4-5 Yardwork/Stairs/Walk up hill Past Family History Family History Other FHx: cancer Past Surgical History Surgical History History of cholecystectomy History of ERCP 08/30/18: MAC sedation at [facility] History of esophagogastroduodenoscopy (EGD) History of herniorrhaphy History of tooth extraction History of total abdominal hysterectomy and bilateral salpingo-oophorectomy History of total knee replacement LEFT/RIGHT Hx of colonoscopy Hx of lumpectomy RIGHT BREAST Hx of shoulder replacement LEFT Past Anesthesia History No Hx of Anesthesia Complications (except remote hx PONV) and No Family Hx of Anesthesia Complications History of PONV History of PONV (x1 episode) and Hx of Motion Sickness (rare) Social History Smoking Status: Former smoker Do You Dip or Chew Tobacco: No Smoking End Date: Quit years ago Hx Alcohol Use: No Hx Substance Use: No substance use type: does not use Review of Systems Rare reflux. Patient denies chest pain, shortness of breath, dyspnea on exertion, cough, wheezing, palpitations. Physical Exam Vital Signs Last Vital Signs Temp 36.7 C 06/06/19 05:34 Pulse 61 06/06/19 05:34 Resp 18 06/06/19 05:34 BP 136/72 06/06/19 05:34 Pulse Ox 95 06/06/19 05:34 VITALS BP 121/77 P 59 TEMP 98.2 SP02 95%RA RESP 16 PHYSICAL Full neck and c-spine range of motion. Full TMJ range of motion. TMD 3.5 finger breaths Mallampati Score 2 Dentition: partial upper dentures, several crowns Lungs: clear throughout to auscultation Cardiac: regular rate and rhythm, no murmurs noted Spine: normal Carotid arteries: negative bruit Extremities: no edema Testing Laboratory Results 04/08/19 WBC 5.67 H/H 14.0/41.4 PLATELETS 270 SODIUM 139 POTASSIUM 4.2 CHLORIDE 105 CO2 30 BUN 13 CREATININE 0.68 GLUCOSE 93 PT 9.8 PTT 26.8 INR 1.0 TYPE AND SCREEN A+Ab- Electrocardiogram Date: 08/30/18 Findings: + NSR @ (63) Chest X-Ray Date: 04/08/19 Cardiomediastinal and hilar silhouettes are within normal limits. No pneumothorax, large pleural effusion, overt pulmonary edema or focal airspace consolidation. Ill-defined opacity of the medial right lung apex is unchanged and may reflect a vascular pedicle. Mild hyperinflation. Ill-defined opacities project over the posterior lung bases with blunting of the posterior costophrenic angles. Degenerative changes of the shoulders and spine. Left shoulder arthroplasty. Surgical clips project over the abdominal right upper quadrant. Mild blunting of the posterior costophrenic angles with ill-defined posterior lung base opacities suggestive of atelectasis versus trace effusions/ reviewed by Dr. Noyola 04/09/19 and felt nothing further needed prior to surgery
[2019-06-06] MEDS ORDERED: ACETAMINOPHEN 500 MG TAB PO SCH (06:00)
[2019-06-06] MEDS ORDERED: CEFAZOLIN 1000MG 1,000 MG/7.5 ML SYR IV SCH (06:00)
[2019-06-06] MEDS ORDERED: LR 60ML/HR IV SCH (06:00)
[2019-06-06] MEDS ORDERED: TRANEXAMIC ACID 1,000 MG **IV Pre-op IV SCH (06:00)
[2019-06-06] MEDS ORDERED: GABAPENTIN 300 MG CAP PO SCH (06:00)
[2019-06-06] MEDS ORDERED: ROPIVACAINE 0.5% HCL/PF 150 MG, BUPIVACAINE 0.5% MPF 30 ML, EPINEPHrine 30MG/30ML (OR U... INSTIL SCH (06:00)
[2019-06-06] MEDS ORDERED: FAMOTIDINE 20 MG TAB PO SCH (06:00)
[2019-06-06] MEDS ORDERED: LR 500ML BOLUS, THEN 15ML/HR IV SCH (06:00)
[2019-06-06] MEDS ORDERED: TRANEXAMIC ACID 1,000 MG **IV Intra-op IV SCH (06:00)
[2019-06-06] MEDS ORDERED: BUPIVACAINE 0.5 % 5 MG/1 ML PF 10ML VIAL ONE (06:12)
[2019-06-06] MEDS ORDERED: LIDOCAINE HCL 2% 2 ML VIAL/AMP(20MG/ML) INFIL ONE (06:34)
[2019-06-06] MEDS ORDERED: MIDAZOLAM HCL 1 MG/ML 2ML VIAL ONE (06:34)
[2019-06-06] MEDS ORDERED: PROPOFOL IV EMULSION 10 MG/ML 20 ML VIAL IV ONE (06:34)
[2019-06-06] MEDS ORDERED: fentaNYL citrate 100 MCG/2 ML VIAL ONE (06:34)
[2019-06-06] MEDS ORDERED: ORTHO JOINT ANESTHETIC ONE (06:40)
--- NOTE | 2019-06-06 06:49 | History & Physical Bridge Note ---
Date of Service June 06, 2019 History & Physical Bridge Note I have examined the patient, reviewed the History & Physical and in the interval since the performance of the History & Physical I have noted the following changes of clinical significance: no changes noted
[2019-06-06] MEDS ORDERED: fentaNYL citrate 100 MCG/2 ML VIAL IV PRN (07:00)
[2019-06-06] MEDS ORDERED: PHENYLEPHRINE 100MCG/ML 5ML SYR IV PRN (07:00)
[2019-06-06] MEDS ORDERED: ONDANSETRON INJ 2 MG/ML 2 ML VIAL IV PRN ×2 (07:00→10:02)
[2019-06-06] MEDS ORDERED: LABETALOL HCL IV 5 MG/ML 20ML IV PRN (07:00)
[2019-06-06] MEDS ORDERED: ePHEDrine sulfate 50 MG/ML AMP IV PRN (07:00)
[2019-06-06] MEDS ORDERED: ATROPINE SULFATE 0.1 MG/ML 10ML SYR IV PRN (07:00)
[2019-06-06] MEDS ORDERED: MEPERIDINE HCL 25 MG/ML CARP IV PRN (07:00)
[2019-06-06] MEDS ORDERED: PHENYLEPHRINE HCL 10 MG/ML VIAL ONE (07:29)
[2019-06-06] MEDS ORDERED: ePHEDrine sulfate 50 MG/ML AMP ONE (07:29)
--- NOTE | 2019-06-06 08:18 | Operative Report ---
PG Post Operative Report Pre & Post Diagnosis Operation Date: 06/06/19 07:00 Pre-Op Diagnosis: RIGHT HIP DEGENERATIVE JOINT DISEASE Post-Op Diagnosis: RIGHT HIP DEGENERATIVE JOINT DISEASE I identified the patient and participated in the time-out.: Yes Procedure Operation Date: 06/06/19 07:00 Actual Procedures p Right Anterior Total Hip Arthroplasty(Right) - Elliott Forbes DO Surgeon Elliott Forbes DO Director Of Outside Sales Elliott Renae PAC Estimated Blood Loss 150 Findings Consistent with Post-Op Diagnosis Specimens Right femoral head Complications none Disposition Disposition: Recovery Room Indications Dennise is a 74-year-old female who presented my office with chronic increasing right hip and groin pain. MRI and clinical examination were diagnostic for primary osteoarthritis of the right hip. She had a right intra- articular hip injection which took care of all of her pain but did not last long. After failing conservative treatment, she elected to proceed with a right anterior total hip arthroplasty. Description of Procedure Implants used Biomet Taperloc total hip arthroplasty system with a size 17 standard offset Taperloc stem, a 50 mm G7 cup with a 25mm screw, an E1 polyethylene liner, a 36 mm ceramic head with a 0 neck. Patient arrived at the hospital for the above procedure. They were seen in the preoperative holding area and the operative extremity was identified and signed. They were given a spinal anesthetic. They were given a preoperative antibiotic and TXA. They were taken back To the operating room and laid on the table in the supine position. The leg was brought out through a Puristst leg positioner. The hip was then prepped and draped in sterile fashion. A timeout was done and the patient and the operative extremity was properly identified. An anterior approach was used. Dissection was taken down through the fascia and the tensor muscle belly was retracted laterally and the rectus was retracted medially. The circumflex vessels were identified and ligated. The capsule was then incised and tagged for later repair. The femoral neck was then cut and the femoral head was removed. The acetabulum was exposed. Time was spent doing a complete circumferential labral release. Sequential reaming of the acetabulum up to a size 49 reamer was done. Final reamings were done under fluoroscopy to ensure appropriate version. A Biomet 50 mm G7 cup was then impacted into place. A single 25 mm screw was placed. The E1 polyethylene liner was then snapped into place. Surrounding soft tissues were then injected with 100 cc of an orthopedic pain control cocktail. The proximal femur was then exposed. Sequential broaching up to a size 17 broach was done. Off that broach a size 36 head with a 0 neck was trialed. The hip was reduced and fluoroscopic images showed anatomic alignment of the implants in acceptable length. The broach was removed. The final size 17 standard offset Taperloc stem was then impacted into place. A ceramic 36 mm head with a 0 neck was then impacted into place in the hip was reduced. Final fluoroscopic images showed anatomic reduction of the hip. The capsule was then closed with #1 Vicryl suture. A dilute betadyne lavage was then done for 3 minutes. The joint was then irrigated with normal saline solution. The fascia was closed with #1 PDS suture. Skin was closed with 2-0 Vicryl, nickolas, and a Muriel VAC dressing. The patient was then transferred to a hospital bed and taken to the post anesthesia care unit in stable condition. They tolerated the procedure well. I attest to the content of the Intraoperative Record and any orders documented therein. Any exceptions are noted below.
--- NOTE | 2019-06-06 08:45 | Fluoroscopy Report ---
FL hip RT 1V CLINICAL HISTORY: RT ANTERIOR TOTAL COMPARISON STUDY: MRI of the right hip February 22, 2019. FLUOROSCOPY TIME: 30 seconds. FLUOROSCOPIC IMAGES: 2 FINDINGS: These images demonstrate anatomic alignment of a total right hip arthroplasty. Hardware is intact. No fracture or unexpected radiopaque foreign body is noted. There is an acetabular screw. IMPRESSION: Expected findings during total right hip arthroplasty. ACT 112: Negative or not required by law. Electronically signed by: Flash Harrington M.D. 06/06/2019 8:44 AM
--- NOTE | 2019-06-06 09:29 | XRay Report ---
SINGLE VIEW PELVIS; SINGLE VIEW RIGHT HIP CLINICAL HISTORY: Postoperative examination. FINDINGS: An AP portable view of the hips and pelvis with a crosstable lateral portable view of the r ight hip are obtained. A bipolar right hip arthroplasty is in near-anatomic alignment. A single corti vic lag screw transfixes the acetabular cup. No acute fracture is identified. There are expected post operative changes overlying the right hip including skin clips, subcutaneous gas, and soft tissue swe lling. [id number]-cy-[id number] degenerative changes noted in the left hip. IMPRESSION: Expected postoperative findings status post right hip arthroplasty. No acute fracture is seen. ACT 112: Negative or not required by law. Electronically signed by: Fred Eden M.D. 06/06/2019 9:28 AM
--- NOTE | 2019-06-06 09:39 | Anesthesiology Progress Note ---
Date of Service June 06, 2019 Anesthesia Post Procedure Vital Signs Vital Signs: Temp Pulse Pulse Resp BP Pulse Ox 06/06/19 09:30 36.5 C 60 15 107/56 L 93 06/06/19 09:20 59 L 16 123/59 L 95 06/06/19 09:10 59 L 16 110/57 L 92 06/06/19 09:00 62 16 108/59 L 92 06/06/19 08:50 64 17 97/61 L 98 06/06/19 08:41 36.1 C L 63 16 111/60 95 06/06/19 05:34 36.7 C 61 18 136/72 95 Transfer of Care Handoff Completed per policy Notes Mental Status: alert / awake / arousable Patient Amnestic to Procedure: Yes Nausea / Vomiting: adequately controlled Pain: adequately controlled Airway Patency, RR, SpO2: stable & adequate BP & HR: stable & adequate Hydration State: stable & adequate Neuraxial Anesthesia: was administered and sensory block is resolving Anesthetic Complications: no major complications apparent and Pt Satisfied with anesthetic care
[2019-06-06] MEDS ORDERED: METOCLOPRAMIDE HCL INJ 5 MG/ML 2 ML VIAL IV PRN (10:02)
[2019-06-06] MEDS ORDERED: SODIUM CHLORIDE 0.9% 1000ML 1,000 ML IV SCH (10:02)
[2019-06-06] MEDS ORDERED: bisacodyL 10 MG SUPP PR PRN (10:02)
[2019-06-06] MEDS ORDERED: NALOXONE HCL 0.4 MG/1 ML VIAL/CARP IV PRN (10:02)
[2019-06-06] MEDS ORDERED: MAGNESIUM HYDROXIDE SUSP 30 ML UDC PO PRN (10:02)
[2019-06-06] MEDS ORDERED: HYDROmorphone INJ 0.5 MG/0.5 ML SYR IV PRN (10:02)
[2019-06-06] MEDS: MULTIVITAMIN TAB PO SCH (10:48)
[2019-06-06] MEDS: DOCUSATE SODIUM 100 MG CAP PO SCH ×2 (10:48→20:48)
[2019-06-06] MEDS: KETOROLAC TROMETHAMINE 15 MG/ML VIAL IV SCH ×3 (10:49→21:53)
[2019-06-06] MEDS: lisinopriL 10 MG TAB PO SCH (10:49)
[2019-06-06] MEDS: CEFAZOLIN 2000MG 2,000 MG/15 ML SYR IV SCH ×2 (13:44→21:53)
[2019-06-06] MEDS: ACETAMINOPHEN 500 MG TAB PO SCH ×2 (13:44→21:53)
[2019-06-06] MEDS: RIVAROXABAN 10 MG TABLET PO SCH (16:19)
[2019-06-06] MEDS: SENNA 8.6 MG TAB PO SCH (20:48)
[2019-06-06] MEDS: SIMVASTATIN 40 MG TAB PO SCH (20:48)
[2019-06-07] MEDS: OXYCODONE HCL IR 5 MG TAB (IMMEDIATE RELEASE) PO PRN ×2 (00:42→21:18)
[2019-06-07] MEDS: LEVOTHYROXINE SODIUM 150 MCG TABLET PO SCH (05:50)
[2019-06-07] MEDS: KETOROLAC TROMETHAMINE 15 MG/ML VIAL IV SCH ×4 (05:50→22:38)
[2019-06-07] MEDS: ACETAMINOPHEN 500 MG TAB PO SCH ×3 (05:51→22:37)
[2019-06-07 06:50] LABS: Basophils # (auto) 0.03 K/uL (0-0.2); Basophils % (auto) 0.4 %; Eosinophils # (auto) 0.07 K/uL (0-0.5); Hematocrit (blood only) 33.5 % (37-47); Hemoglobin 11.3 g/dL (12.0-16.0); Immature Granulocytes # (auto) 0.01 K/uL (0.00-0.02); Immature Granulocytes % (auto) 0.1 %; Lymphocytes # (auto) 1.49 K/uL (1.2-3.4); Lymphocytes % (auto) 20.6 %; Mean Corpuscular Hemoglobin 31.2 pg (25-34); Mean Corpuscular Hgb Conc 33.7 g/dL (32-36); Mean Corpuscular Volume 92.5 fL (80-100); Mean Platelet Volume 9.9 fL (7.4-10.4); Monocytes # (auto) 0.93 K/uL (0.11-0.59); Monocytes % (auto) 12.9 %; Platelet Count 174 K/uL (130-400); RDW Coefficient of Variation 14.2 % (11.5-14.5); RDW Standard Deviation 48.1 fL (36.4-46.3); Red Blood Count 3.62 M/uL (4.2-5.4); White Blood Count 7.23 K/uL (4.8-10.8)
[2019-06-07 07:18] LABS: BUN Creatinine Ratio 27.7 (10-20); Calcium 8.6 mg/dl (8.5-10.1); Creatinine Clr Calc Pharmacy 80.1 ml/min; Est GFR (African American) 102.1; Est GFR (Non-African American) 88.1
[2019-06-07] MEDS ORDERED: dexAMETHasone 4 MG TAB PO SCH (08:00)
--- NOTE | 2019-06-07 08:15 | Orthopedic Progress Note ---
Date of Service June 07, 2019 Assessment & Plan (1) History of right hip replacement: Overall she is doing fairly well. The block should wear off throughout the day today. She will be seen by physical therapy this morning for ambulation and range of motion exercises. She is on Xarelto for DVT prophylaxis. We will plan to discharge her to home tomorrow. Present on Admission?: No Subjective Dennise was seen and examined at bedside this morning. Overall she is doing fairly well. She is not having much pain in her right hip. The block is still working. Her knee has been buckling when she stands with a walker. She has no complaints. Physical Exam Musculoskeletal: On physical examination of the right hip, the Muriel VAC dressing is to suction. The leg lengths are equal. She has active dorsiflexion and plantarflexion of the right ankle. Sensation is intact throughout. Results & Data Vital Signs (Past 12 Hours) Vital Signs Temp Pulse Resp BP Pulse Ox 06/07/19 07:56 36.9 C 63 18 124/78 96 06/07/19 03:35 36.4 C L 67 16 115/70 98 06/06/19 22:41 36.9 C 67 17 117/70 96 Laboratory Results H & H 06/07/19 Range/Units 06:20 Hgb 11.3 L (12.0-16.0) g/dL Hct 33.5 L (37-47) % Diagnostic Findings Postoperative x-rays of the right hip show the prosthesis to be in anatomic alignment without any evidence of fracture, dislocation, or loosening. PG Care Time/CCT Total # of Minutes Spent Total Time Spent with Patient: Total time spent is greater than 50% in coordination of care (as documented) at patient's floor/unit and/or counseling patient:
[2019-06-07] MEDS: lisinopriL 10 MG TAB PO SCH (08:36)
[2019-06-07] MEDS: ATENOLOL 50 MG TABLET PO SCH (08:36)
[2019-06-07] MEDS: DOCUSATE SODIUM 100 MG CAP PO SCH ×2 (08:36→21:12)
[2019-06-07] MEDS: RIVAROXABAN 10 MG TABLET PO SCH (08:36)
[2019-06-07] MEDS: MULTIVITAMIN TAB PO SCH (08:36)
[2019-06-07] MEDS: SIMVASTATIN 40 MG TAB PO SCH (21:12)
[2019-06-07] MEDS: SENNA 8.6 MG TAB PO SCH (21:12)
[2019-06-08] MEDS: KETOROLAC TROMETHAMINE 15 MG/ML VIAL IV SCH (05:45)
[2019-06-08] MEDS: LEVOTHYROXINE SODIUM 150 MCG TABLET PO SCH (05:46)
[2019-06-08] MEDS: ACETAMINOPHEN 500 MG TAB PO SCH (05:46)
--- NOTE | 2019-06-08 07:47 | Orthopedic Progress Note ---
Date of Service June 08, 2019 Assessment & Plan (1) History of right hip replacement: Overall she is doing well. She is not having much pain in the right hip. She is on Xarelto for DVT prophylaxis. She will be seen by physical therapy again this morning for ambulation and range of motion exercises. She can be discharged home later today. She will follow-up with orthopedics in 2 weeks. Present on Admission?: No Subjective Dennise was seen and examined at bedside this morning. Overall she is doing well. She is not having much pain in the right hip. She was able to ambulate well with physical therapy yesterday. She is happy with her progress to this point. She has no complaints. Physical Exam Musculoskeletal: On physical examination of the right hip, the Muriel VAC dressings to suction. Her leg lengths are equal. She has active dorsiflexion and plantarflexion of the right ankle. Sensation is intact. Results & Data Vital Signs (Past 12 Hours) Vital Signs Temp Pulse Resp BP Pulse Ox 06/08/19 07:32 36.7 C 68 18 147/77 H 97 06/07/19 23:10 37 C 75 16 122/70 96 PG Care Time/CCT Total # of Minutes Spent Total Time Spent with Patient: Total time spent is greater than 50% in coordination of care (as documented) at patient's floor/unit and/or counseling patient:
--- NOTE | 2019-06-08 07:52 | Discharge Summary ---
Date of Service June 08, 2019 Principal Diagnosis Right total hip arthroplasty Discharge Data Allergies Allergy/AdvReac Type Severity Reaction Status Date / Time adhesive Allergy Intermediate bandaids- Verified 06/06/19 05:42 redness, pruritus Penicillins Allergy Mild rash, Verified 06/06/19 05:42 mouth sores Consultations 06/07/19 08:00 Consult Case Management - Discharge Planning Routine Procedures Performed Operation Date: 06/06/19 07:00 Actual Procedures p Right Anterior Total Hip Arthroplasty(Right) - Elliott Forbes DO Ordered Studies 06/06/19 07:00 FL fluoroscopy <1hr Routine FL hip RT 1V Routine Hospital Course (1) History of right hip replacement: On June 06, 2019 Dennise arrived at [facility] and underwent a right total hip arthroplasty without complication. She had a spinal anesthetic. Postoperatively she was started on Xarelto for DVT prophylaxis and discharged to general orthopedic floors. Her hospital course was uneventful. On postop day #1 her H&H was stable and her pain was well controlled. She was able to participate well with physical therapy doing ambulation and range of motion exercises. On postop day #2 she continued to do well. She was seen once again by physical therapy. She was then discharged home. She will follow-up with orthopedics in 2 weeks. Total Time Total Time Spent Total Time Spent (In Minutes): 20 Discharge Plan Discharge Items Reason For Visit: RIGHT HIP DEGENERATIVE JOINT DISEASE Discharge Diagnosis: Right total hip arthroplasty Activity: As commented below Non-emergency contact: Surgeon Call non-emergency contact if: your wound has increased redness and your wound has increased drainage Follow-up/Referrals: Valentine Nuñez DO [Primary Care Provider] - Diet: Regular Addtl Attending Provider Instructions: Activity and Therapy Recommendations: * If you are using [facility] then therapy will be provided at your home until they feel you have accomplished all of your goals. * If you are using [facility] then Physical Therapy will be provided until they feel you are ready to start Outpatient Physical Therapy. * If you are not using home therapy then Outpatient Physical Therapy should start about 3-5 days from your day of surgery. Therapy will last about 6-10 weeks * You were shown a series of exercises in the hospital. Do these exercises three times each day including the exercises you were shown in physical therapy. * Get up and walk several times each day.~ For the first four weeks, try not to stand or walk for more than one hour at a time. If you do stand or walk for more than one hour, you will not hurt anything, but your leg will likely swell.~~ * As you feel comfortable, you may change from the walker or crutches to a cane and~then to independent walking. Medications: * Narcotic You will likely be sent home from the hospital with a prescription for the narcotic pain medication that worked best throughout your stay. * Aspirin Most patients will be required to take Aspirin 81mg twice a day for 6 weeks after surgery. This is obtained [id number] and a prescription is not necessary. * Other medications may be prescribed for specific circumstances. If you have any questions, please call the office at . * Resume previous home medications unless otherwise instructed TEDs/Elastic Stockings: The white elastic stockings help limit swelling and prevent blood clots from forming in your legs. The more you wear them, the more they work. Wear them for six weeks. Dressing Care: You will likely have a purple VAC dressing after surgery. This dressing will keep the incision dry and promote early healing. After about 7 days the batteries will wear out and the VAC will lose suction. Simply remove the dressing at that time and throw everything away, including the small suction machine. Then, you may leave the nickolas open to air or cover them with a dry dressing so they do not rub on your pants. The nickolas will be removed at your 2 week follow-up appointment. Showering: You may shower immediately with the purple VAC dressing. Let the shower spray hit your opposite side and slowly pat the plastic dry. Do not soak the dressing. After the dressing is removed you may shower normally with the nickolas exposed. Let soapy water run over the nickolas and pat them dry. Things To Watch For: * Drainage from the incision site that occurs more than one week after your surgery. * Increased redness at the incision site. * Fever above 102 degrees Fahrenheit. * Unusual chest pain or shortness of breath. * Call [facility] at with any of the above problems Follow-Up Visit: Follow-up with Dr. Forbes 2-3 weeks after your day of surgery. An appointment was probably scheduled when you signed-up for surgery in the office. If you have any questions call Office Instructions: More detailed instructions as well as Frequently Asked Questions were provided in a folder by our office when you signed-up for surgery. Please review these instructions when you get home. If you have any further questions or concerns, please feel free to call the office at [phone] Pending Studies at Discharge: No Stand-Alone Forms: My [facility] [employer], Smoking Cessation Medications and DC Order Prescriptions: New Xarelto 10 mg Tablet 10 mg PO DAILY Qty: 33 RF: 0 tramadol 50 mg tablet 50 mg PO Q6H PRN (Reason: pain) Qty: 30 RF: 0 Continued multivitamin Tablet 1 tab PO QDD RF: 0 simvastatin 40 mg Tablet 40 mg PO HS RF: 0 lisinopril 10 mg Tablet 10 mg PO QAM RF: 0 levothyroxine 150 mcg Tablet 150 mcg PO QAM RF: 0 atenolol 50 mg Tablet 50 mg PO QAM RF: 0 glucosamine-chondroitin [Osteo Bi-Flex] 250-200 mg Tablet 1 tab PO QAM RF: 0 Calcium 600 + D(3) 600 mg calcium- 200 unit Capsule 1 cap PO QAM RF: 0 hyoscyamine sulfate 0.125 mg Tablet 0.125 mg PO Q4H PRN (Reason: IRRITABLE BOWEL) RF: 0 diphenhydramine HCl 25 mg Capsule 25 mg PO Q6H PRN (Reason: ALLERGIES) RF: 0 Discontinued aspirin [Aspir-Low] 81 mg Tablet,Delayed Release (Dr/Ec) 81 mg PO HS RF: 0 Admission Data Admit Date/Time: 06/06/19 08:44 Attending Provider: Elliott Forbes Admit Provider: Elliott Forbes Primary Care Provider: Valentine Nuñez
[2019-06-08] MEDS: ATENOLOL 50 MG TABLET PO SCH (08:29)
[2019-06-08] MEDS: RIVAROXABAN 10 MG TABLET PO SCH (08:29)
[2019-06-08] MEDS: DOCUSATE SODIUM 100 MG CAP PO SCH (08:29)
[2019-06-08] MEDS: MULTIVITAMIN TAB PO SCH (08:29)
[2019-06-08] MEDS: lisinopriL 10 MG TAB PO SCH (08:29)
[2019-06-08] MEDS: OXYCODONE HCL IR 5 MG TAB (IMMEDIATE RELEASE) PO PRN (10:42)
== END 2019-06-08 11:01 | disposition home health service (06) | DRG 470 ==
LOC: ASU 04:46 → 3E 08:44

== ENCOUNTER 2020-05-18 21:14 | Observation (INO) ==
--- NOTE | 2020-05-18 21:26 | Emergency Department Note ---
Impression & Plan Inguinal hernia of left side with obstruction, Abdominal pain ED Provider Note NAME: KATHLEEN HANEY AGE: 75 SEX: F : 1945 ARRIVES VIA: Family Vehicle INFORMANT: Patient, ED PROVIDER(S): Ivan Cagle MD Chief Complaint: Back and flank pain HPI: Patient does present with concerns for back and leg pain. Patient states this is been ongoing for approximately 1 week. The patient states initially he had started in her lower back and was nonradiating but today she noticed some pain in her left flank and left lower abdomen. Patient denies any prior history of kidney stones. Patient denies any blood in the urine. Patient denies any urinary symptoms. The patient did try to take some Tylenol at home but without any relief. The patient does describe the pain as aching 10 out of 10 in nature occasionally sharp with radiation into the left lower abdomen. Patient denies any fevers, chills, chest pains or shortness of breath. Patient denies any vomiting or nausea. Patient denies any recent trauma or heavy lifting. The patient does have a prior history of a hernia repair and hysterectomy. Patient states that she does have a prior history of diverticulitis and this may feel similar. ROS: See HPI for pertinent positives and negatives. A total of 10 systems were reviewed and otherwise negative. Past medical history: See below Surgical history: See below Social history: See below Physical Exam: GENERAL: Wearing glasses and a mask. NAD, non-toxic. EYE EXAM: Normal conjunctiva. PERRL, no anisocoria and EOM's grossly intact w/o pain. [OROPHARYNX: Moist mucus membranes. Grossly normal dentition. ] NECK: Supple, no nuchal rigidity, no adenopathy, non-tender. No signs of meningismus. LUNGS: Clear to auscultation. Normal chest wall mechanics. HEART: NSR, no MRG. ABDOMEN: Abdomen soft, pain to the left mid and lower abdomen with associated left groin mass without overlying erythema, not reducible, normo-active bowel sounds, no rebound or guarding. BACK: No CVA TTP. SKIN: No rashes and no bruising. UPPER EXTREMITIES: Upper extremities are grossly normal. LOWER EXTREMITIES: Grossly normal, no edema. NEURO EXAM: A&O x3, cranial nerves II-XII grossly intact, normal speech, moves all 4 extremities on command w/o issue. Differential diagnoses: Appendicitis, ovarian cyst, ovarian torsion, ectopic , TOA, PID, infections, diverticulitis, UTI, obstruction, mesenteric ischemia, aortic pathology, inflammatory bowel disease, renal colic, PUD, pancreatitis, biliary pathology, hernia, volvulus, constipation, as well as other pathologies. Course: Patient was seen and evaluated the bedside. Full history physical exam was performed. EKG: None Imaging Studies: Radiology results as stated below per my review in the radiologist's interpretation: CT abdomen pelvis with IV contrast Impression: There is small bowel containing left inguinal hernia with focal ray sition point left inguinal hernia consistent with small bowel obstruction. No renal or ureteral calculi. Cholecystectomy. Hypodensities in left kidney appear unchanged. Sigmoid colonic diverticulosis. Chronic right pubic bone fracture. Decreased osseous mineralization likely osteopenia. Degenerative change throughout the spine technically age indeterminate compression deformity of L2. Recommend correlation for point tenderness. Cardiac monitoring: An order was placed for continuous cardiac monitoring. The monitor shows a rate of 76 with sinus rhythm. MDM: Patient did present with concern for left-sided abdominal pain. The patient did have CT of the abdomen pelvis completed along with blood work. The patient did receive medications for symptomatic improvement. On reassessment the patient's pain was 6 out of 10 and had improved. Patient's blood count showed a normal white count H&H and platelet count. The patient's kidney function was unremarkable. The patient did have some blood in the urine but no obvious signs of infection. The patient CT abdomen pelvis did show concern for small bowel obstruction from the left inguinal hernia. The also do note an age-indetermin ate compression deformity at L2. The patient does not have any point tenderness midline lower back. It is be with the on-call general surgeon Anthony Crawford PA-C who did discuss the case with his attending Dr. Parker. The patient was subsequently admitted to their service pending operative fixation in the morning. Patient is currently stable afebrile with a normal white count. I do not believe the patient requires an NG tube the patient has no vomiting. Pain is improved with pain medication. The patient was made n.p.o. and started on maintenance fluids. Rapid Covid also ordered. Patient was seen and evaluated at the bedside. Hernia was not reducible at the bedside for the surgery s ervice. Past Med/Surg History Medical History Hx of deep venous thrombosis post-op left knee (2006) HX: breast cancer right s/p lumpectomy/XRT (2009) Hyperlipidemia Hypertension Hypothyroidism IBS (irritable bowel syndrome) Osteoarthritis Surgical History History of cholecystectomy History of ERCP 08/30/18: MAC sedation at [facility] History of esophagogastroduodenoscopy (EGD) History of herniorrhaphy History of right hip replacement (~06/2019) History of tooth extraction History of total abdominal hysterectomy and bilateral salpingo-oophorectomy History of total knee replacement LEFT/RIGHT Hx of colonoscopy Hx of lumpectomy RIGHT BREAST Hx of shoulder replacement LEFT Family History Other FHx: cancer Social History Smoking Status: Never smoker Second Hand Exposure: Yes (hx); Hx Alcohol Use: No Hx Substance Use: No Preferred Language: Latvian Communication Ability: Effective Valve Pipe Irrigator Required: No Beliefs That Will Affect Care: None marital status: Current Living Situation: Spouse Feels Safe at Home: Yes Assistive Devices: Denture - Upper, Denture - Lower, Glasses and Walker Allergies Allergies Allergy/AdvReac Type Severity Reaction Status Date / Time adhesive Allergy Intermediate bandaids- Verified 05/18/20 22:24 redness, pruritus Penicillins Allergy Mild rash, Verified 05/18/20 22:24 mouth sores Home Meds Home Medications Medication Instructions Recorded Confirmed Calcium 600 + D(3) 1 cap PO QAM 08/05/18 05/18/20 atenolol 50 mg PO QAM 08/05/18 05/18/20 glucosamine-chondroitin [Osteo 1 tab PO QAM 08/05/18 05/18/20 Bi-Flex] levothyroxine 150 mcg PO QAM 08/05/18 05/18/20 lisinopril 10 mg PO QAM 08/05/18 05/18/20 multivitamin 1 tab PO QDD 08/05/18 05/18/20 simvastatin 40 mg PO HS 08/05/18 05/18/20 diphenhydramine HCl 25 mg PO Q6H PRN 04/02/19 05/18/20 hyoscyamine sulfate 0.125 mg PO Q4H PRN 04/02/19 05/18/20 aspirin 81 mg PO HS 05/18/20 05/18/20 Results & Data (ED) Vital Signs Vital Signs - 24 hr 05/18/20 21:15 05/18/20 22:16 05/18/20 22:18 Temperature 36.6 C Temperature Source Oral Pulse Rate 85 76 Respiratory Rate 18 17 Blood Pressure 193/100 H 183/90 H Blood Pressure Mean 131 143 Pulse Oximetry 96 96 96 Oxygen Delivery Method Room Air Room Air Sepsis Recent Fever Within 48 Hours No Sepsis New/Unexplained Change in Mental Status No Sepsis Action Taken by Nursing No Action Required Home Medications Current Medication List: was personally reviewed by me Laboratory Data Attestation: I reviewed the patient's lab results. Result diagrams: 05/18/20 21:43 05/18/20 21:43 Lab Results 05/18/20 05/18/20 05/18/20 Range/Units 21:43 21:43 21:48 WBC 8.82 (4.8-10.8) K/uL RBC 4.55 (4.2-5.4) M/uL Hgb 14.1 (12.0-16.0) g/dL POC Hgb 14.3 (12.0-16.0) g/dl Hct 41.9 (37-47) % POC Hct 42 (37-47) % MCV 92.1 (80-100) fL MCH 31.0 (25-34) pg MCHC 33.7 (32-36) g/dL RDW Std Deviation 48.0 H (36.4-46.3) fL RDW Coeff of Angel 14.2 (11.5-14.5) % Plt Count 240 (130-400) K/uL MPV 9.9 (7.4-10.4) fL Immature Gran % (Auto) 0.1 % Neut % (Auto) 70.4 % Lymph % (Auto) 18.7 % Dolores % (Auto) 8.7 % Eos % (Auto) 1.8 % Baso % (Auto) 0.3 % Neut # (Auto) 6.20 (1.4-6.5) K/uL Lymph # (Auto) 1.65 (1.2-3.4) K/uL Dolores # (Auto) 0.77 H (0.11-0.59) K/uL Eos # (Auto) 0.16 (0-0.5) K/uL Baso # (Auto) 0.03 (0-0.2) K/uL Immature Gran # (Auto) 0.01 (0.00-0.02) K/uL POC Sodium 134 L (135-144) mmol/L Sodium 136 (136-145) mmol/L POC Potassium 3.9 (3.3-5.0) mmol/L Potassium 4.0 (3.5-5.1) mmol/L POC Chloride 102 (101-112) mmol/L Chloride 104 (98-107) mmol/L Carbon Dioxide 24 (21-32) mmol/L POC Total CO2 25 (24-31) mmol/L Anion Gap 9.0 (3-11) POC Anion Gap 13.0 L (16-25) mmol/L POC BUN 17 (7-18) mg/dl BUN 16 (7-18) mg/dl Creatinine 0.75 (0.6-1.2) mg/dl POC Creatinine 0.6 (0.6-1.3) mg/dl Est Cr Clr Drug Dosing Not Reportable Est GFR ( Amer) 89.1 Est GFR (Non-Af Amer) 76.9 BUN/Creatinine Ratio 21.4 H (10-20) Glucose 118 H (70-99) mg/dl POC Glucose (other) 123 H (70-99) mg/dl Calcium 9.8 (8.5-10.1) mg/dl POC Ioniz Calcium [place] 1.15 (1.12-1.32) mmol/l Total Bilirubin 0.5 (0.2-1) mg/dl AST 23 (15-37) U/L ALT 29 (12-78) U/L Alkaline Phosphatase 107 (45-117) U/L Total Protein 7.9 (6.4-8.2) gm/dl Albumin 4.0 (3.4-5.0) gm/dl Globulin 3.9 (2.5-4.0) gm/dl Albumin/Globulin Ratio 1.0 (0.9-2) Lipase 149 (73-393) U/L Urine Color Urine Appearance (Clear) Urine pH (4.5-7.5) Ur Specific [place] (1.000-1.030) Urine Protein (Negative) Urine Glucose (UA) (Negative) Urine Ketones (Negative) Urine Blood (Negative) Urine Nitrite (Negative) Urine Bilirubin (Negative) Urine Urobilinogen (Negative) Ur Leukocyte Esterase (Negative) Urine WBC (Auto) (0-5) /hpf Urine RBC (Auto) (0-4) /hpf U Hyaline Cast (Auto) (0-5) /lpf U Epithel Cells (Auto) (0-5) /lpf Urine Bacteria (Auto) (Negative) SARS-CoV-2 Ag (Rapid) (Negative) 05/18/20 05/18/20 Range/Units 21:52 Unknown WBC (4.8-10.8) K/uL RBC (4.2-5.4) M/uL Hgb (12.0-16.0) g/dL POC Hgb (12.0-16.0) g/dl Hct (37-47) % POC Hct (37-47) % MCV (80-100) fL MCH (25-34) pg MCHC (32-36) g/dL RDW Std Deviation (36.4-46.3) fL RDW Coeff of Angel (11.5-14.5) % Plt Count (130-400) K/uL MPV (7.4-10.4) fL Immature Gran % (Auto) % Neut % (Auto) % Lymph % (Auto) % Dolores % (Auto) % Eos % (Auto) % Baso % (Auto) % Neut # (Auto) (1.4-6.5) K/uL Lymph # (Auto) (1.2-3.4) K/uL Dolores # (Auto) (0.11-0.59) K/uL Eos # (Auto) (0-0.5) K/uL Baso # (Auto) (0-0.2) K/uL Immature Gran # (Auto) (0.00-0.02) K/uL POC Sodium (135-144) mmol/L Sodium (136-145) mmol/L POC Potassium (3.3-5.0) mmol/L Potassium (3.5-5.1) mmol/L POC Chloride (101-112) mmol/L Chloride (98-107) mmol/L Carbon Dioxide (21-32) mmol/L POC Total CO2 (24-31) mmol/L Anion Gap (3-11) POC Anion Gap (16-25) mmol/L POC BUN (7-18) mg/dl BUN (7-18) mg/dl Creatinine (0.6-1.2) mg/dl POC Creatinine (0.6-1.3) mg/dl Est Cr Clr Drug Dosing Est GFR ( Amer) Est GFR (Non-Af Amer) BUN/Creatinine Ratio (10-20) Glucose (70-99) mg/dl POC Glucose (other) (70-99) mg/dl Calcium (8.5-10.1) mg/dl POC Ioniz Calcium [place] (1.12-1.32) mmol/l Total Bilirubin (0.2-1) mg/dl AST (15-37) U/L ALT (12-78) U/L Alkaline Phosphatase (45-117) U/L Total Protein (6.4-8.2) gm/dl Albumin (3.4-5.0) gm/dl Globulin (2.5-4.0) gm/dl Albumin/Globulin Ratio (0.9-2) Lipase (73-393) U/L Urine Color Yellow Urine Appearance Clear (Clear) Urine pH 5.0 (4.5-7.5) Ur Specific [place] 1.026 (1.000-1.030) Urine Protein Trace H (Negative) Urine Glucose (UA) Negative (Negative) Urine Ketones 1+ H (Negative) Urine Blood 3+ H (Negative) Urine Nitrite Negative (Negative) Urine Bilirubin Negative (Negative) Urine Urobilinogen Negative (Negative) Ur Leukocyte Esterase Negative (Negative) Urine WBC (Auto) 1-5 (0-5) /hpf Urine RBC (Auto) 5-10 H (0-4) /hpf U Hyaline Cast (Auto) 1-5 (0-5) /lpf U Epithel Cells (Auto) 10-20 H (0-5) /lpf Urine Bacteria (Auto) Negative (Negative) SARS-CoV-2 Ag (Rapid) Negative (Negative) Administered Medications Sodium Chloride (Nss) 500 mls @ 125 mls/hr IV .Q4H BELKIS Stop: 01/14/21 22:59 Last Admin: 05/18/20 23:03 Dose: 125 mls/hr Documented by: [id number] Discontinued Medications Sodium Chloride (Nss 1000ml) 1,000 mls @ 999 mls/hr IV .Q1H1M ONE Stop: 05/18/20 22:33 Last Infusion: 05/18/20 22:48 Dose: 0 mls/hr Documented by: [id number] Admin: 05/18/20 21:50 Dose: 999 mls/hr Documented by: [id number] Ioversol (Ioversol 100ml) 94 ml IV ONCE ONE Stop: 05/18/20 22:08 Last Admin: 05/18/20 22:08 Dose: 94 ml Documented by: [id number] Morphine Sulfate (Morphine Sulfate 4 Mg/Ml 1 Ml Carp\Vial) 4 mg IV NOW STA Stop: 05/18/20 21:34 Last Admin: 05/18/20 21:49 Dose: 4 mg Documented by: [id number] Morphine Sulfate (Morphine Sulfate 4 Mg/Ml 1 Ml Carp\Vial) 4 mg IV NOW STA Stop: 05/18/20 22:56 Last Admin: 05/18/20 23:02 Dose: 4 mg Documented by: [id number] Ondansetron HCl (Ondansetron Inj 2 Mg/Ml 2 Ml Vial) 4 mg IV NOW STA Stop: 05/18/20 21:34 Last Admin: 05/18/20 21:49 Dose: 4 mg Documented by: [id number] Discharge Plan Visit Data Chief Complaint: Back Injury/Pain Stated Complaint: LOWER BACK PAIN, LEFT SIDE PAIN ED Provider: Ivan Cagle Discharge Problem: Inguinal hernia of left side with obstruction, Abdominal pain Forms Stand Alone Forms: [facility] Prescriptions Prescriptions: No Action multivitamin Tablet 1 tab PO QDD RF: 0 simvastatin 40 mg Tablet 40 mg PO HS RF: 0 lisinopril 10 mg Tablet 10 mg PO QAM RF: 0 levothyroxine 150 mcg Tablet 150 mcg PO QAM RF: 0 atenolol 50 mg Tablet 50 mg PO QAM RF: 0 glucosamine-chondroitin [Osteo Bi-Flex] 250-200 mg Tablet 1 tab PO QAM RF: 0 Calcium 600 + D(3) 600 mg calcium- 200 unit Capsule 1 cap PO QAM RF: 0 hyoscyamine sulfate 0.125 mg Tablet 0.125 mg PO Q4H PRN (Reason: IRRITABLE BOWEL) RF: 0 diphenhydramine HCl 25 mg Capsule 25 mg PO Q6H PRN (Reason: ALLERGIES) RF: 0 aspirin 81 mg Tablet,Delayed Release (Dr/Ec) 81 mg PO HS RF: 0 Discharge Problem: Abdominal pain Qualifiers: Abdominal location: left lower quadrant Qualified Code(s): R10.32 - Left lower quadrant pain
[2020-05-18] MEDS ORDERED: ONDANSETRON INJ 2 MG/ML 2 ML VIAL IV STA (21:33)
[2020-05-18] MEDS ORDERED: SODIUM CHLORIDE 0.9% 1000ML 1,000 ML IV ONE (21:33)
[2020-05-18] MEDS ORDERED: MoRPHine SULFATE 4 MG/ML 1 ML CARP\\VIAL IV STA ×2 (21:33→22:55)
[2020-05-18 21:51] LABS: Basophils # (auto) 0.03 K/uL (0-0.2); Basophils % (auto) 0.3 %; Eosinophils # (auto) 0.16 K/uL (0-0.5); Eosinophils % (auto) 1.8 %; Hematocrit (blood only) 41.9 % (37-47); Hemoglobin 14.1 g/dL (12.0-16.0); Immature Granulocytes # (auto) 0.01 K/uL (0.00-0.02); Immature Granulocytes % (auto) 0.1 %; Lymphocytes # (auto) 1.65 K/uL (1.2-3.4); Lymphocytes % (auto) 18.7 %; Mean Corpuscular Hgb Conc 33.7 g/dL (32-36); Mean Corpuscular Volume 92.1 fL (80-100); Mean Platelet Volume 9.9 fL (7.4-10.4); Monocytes # (auto) 0.77 K/uL (0.11-0.59); Monocytes % (auto) 8.7 %; Neutrophils % (auto) 70.4 %; Platelet Count 240 K/uL (130-400); RDW Coefficient of Variation 14.2 % (11.5-14.5); Red Blood Count 4.55 M/uL (4.2-5.4); White Blood Count 8.82 K/uL (4.8-10.8)
[2020-05-18 22:00] LABS: iSTAT Creatinine 0.6 mg/dl (0.6-1.3); iSTAT Hemoglobin 14.3 g/dl (12.0-16.0); iSTAT Ionized Calcium 1.15 mmol/l (1.12-1.32); iSTAT Potassium 3.9 mmol/L (3.3-5.0)
[2020-05-18] MEDS ORDERED: OPTIRAY 320 100ml IV ONE (22:07)
[2020-05-18 22:09] LABS: Alanine Aminotransferase 29 U/L (12-78); Aspartate Aminotransferase 23 U/L (15-37); BUN Creatinine Ratio 21.4 (10-20); Blood Urea Nitrogen 16 mg/dl (7-18); Calcium 9.8 mg/dl (8.5-10.1); Carbon Dioxide 24 mmol/L (21-32); Chloride 104 mmol/L (98-107); Est GFR (African American) 89.1; Est GFR (Non-African American) 76.9; Glucose 118 mg/dl (70-99); Lipase 149 U/L (73-393); Sodium 136 mmol/L (136-145)
[2020-05-18 22:11] LABS: Appearance Urine Clear (Clear); Bacteria Urine Automated Negative (Negative); Bilirubin Urine Negative (Negative); Blood Urine 3+ (Negative); Color Urine Yellow; Glucose Urine UA Negative (Negative); Ketones Urine 1+ (Negative); Leukocyte Esterase Urine Negative (Negative); Nitrite Urine Negative (Negative); Protein Urine Trace (Negative); Specific Gravity Urine 1.026 (1.000-1.030); Urobilinogen Urine Negative (Negative)
[2020-05-18 22:12] LABS: Alkaline Phosphatase 107 U/L (45-117); Bilirubin,Total 0.5 mg/dl (0.2-1); Globulin 3.9 gm/dl (2.5-4.0); Total Protein 7.9 gm/dl (6.4-8.2)
[2020-05-18] MEDS ORDERED: SODIUM CHLORIDE 0.9% 500 ML IV SCH (23:00)
--- NOTE | 2020-05-18 23:36 | History & Physical Report ---
Date of Service May 18, 2020 Assessment & Plan (1) Inguinal hernia of left side with obstruction: -pt .will require admission for surgical repair; as she is not in acute distress will plan on surgery in am on 05/19/20 -will proceed as follows: -keep npo -hydrate with IVF -provide analgesics and anti-emetics -as she has not had a single episode of N/V, will hold on NGT for the present time -will check baseline EKG and CXR -COVID-19 test was performed in ED and noted to be (-) History of Present Illness Chief Complaint: Abdominal and back pain Primary Care Provider: Valentine Nuñez DO 75 year old female has been having non-radiating back pain x 1 week. Earlier today she developed pain in the left inguinal region, causing her to be concerned such that she presented to the ED. Concerning the left groin pain, she notes the pain is an ache like pain that is non-radiating without palliative factors other than pain meds given in the ED. The pain is worse with palpation. She denies N/V. She had a normal BM earlier today without BRBPR or melena. She denies fevers, shakes, chills. She notes when she is feeling well she is quite active, performing various household choirs without difficulty. She can negotiate steps and inclines without CP or SOB. She has been exposed to COVID-19 and has been tested in the past and was (-). Currently she has no fever, cough, SOB, loss of sense of taste or smell. COVID test in the ED this evening was noted to be (-). In the ED she was afebrile with normal WBC. She was not noted to have lab evidence of LORENZO. CT scan of the abdomen showed a left inguinal hernia with small bowel in it with concern for a SBO. Her most recent oral intake was about 5:00 pm o 05/18/20. He prior abdominal surgeries include a cholecystectomy, hysterectomy, and right inguinal hernia repair. At the time of my exam, she was resting comfortably in bed, in no distress. Allergies Allergy/AdvReac Type Severity Reaction Status Date / Time adhesive Allergy Intermediate bandaids- Verified 05/18/20 22:24 redness, pruritus Penicillins Allergy Mild rash, Verified 05/18/20 22:24 mouth sores Home Medications Medication Instructions Recorded Confirmed Type Calcium 600 + D(3) 1 cap PO QAM 08/05/18 05/18/20 History atenolol 50 mg PO QAM 08/05/18 05/18/20 History glucosamine-chondroitin [Osteo 1 tab PO QAM 08/05/18 05/18/20 History Bi-Flex] levothyroxine 150 mcg PO QAM 08/05/18 05/18/20 History lisinopril 10 mg PO QAM 08/05/18 05/18/20 History multivitamin 1 tab PO QDD 08/05/18 05/18/20 History simvastatin 40 mg PO HS 08/05/18 05/18/20 History diphenhydramine HCl 25 mg PO Q6H PRN 04/02/19 05/18/20 History hyoscyamine sulfate 0.125 mg PO Q4H PRN 04/02/19 05/18/20 History aspirin 81 mg PO HS 05/18/20 05/18/20 History Past Med/Surg History Medical History Hx of deep venous thrombosis post-op left knee (2006) HX: breast cancer right s/p lumpectomy/XRT (2009) Hyperlipidemia Hypertension Hypothyroidism IBS (irritable bowel syndrome) Osteoarthritis Surgical History History of cholecystectomy History of ERCP 08/30/18: MAC sedation at [facility] History of esophagogastroduodenoscopy (EGD) History of herniorrhaphy History of right hip replacement (~06/2019) History of tooth extraction History of total abdominal hysterectomy and bilateral salpingo-oophorectomy History of total knee replacement LEFT/RIGHT Hx of colonoscopy Hx of lumpectomy RIGHT BREAST Hx of shoulder replacement LEFT Family History Other FHx: cancer Social History Smoking Status: Former smoker Second Hand Exposure: Yes (hx); Hx Alcohol Use: No Hx Substance Use: No Preferred Language: Yoruba Communication Ability: Effective Head Of Business Development Required: No Beliefs That Will Affect Care: None marital status: Current Living Situation: Spouse Other Information That Helps Us Care for You: No Feels Safe at Home: Yes Safety Concerns: Feels Safe At This Time Assistive Devices: Denture - Upper Review of Systems Constitutional: no fever and no chills Eyes: no diplopia Ear, Nose, Mouth, Throat: no ear pain Respiratory: no cough and no dyspnea Cardiovascular: no chest pain Gastrointestinal: + abdominal pain (left inguinal region); no nausea and no vomiting Genitourinary: no dysuria Musculoskeletal: + back pain Integumentary: no rash Neurologic: no localized weakness Physical Exam Constitutional: well developed and well nourished; no acute distress Eyes: no conjunctival abnormality wears glasses ENMT: Ears: no hearing impairment Neck: trachea midline Respiratory: normal respiratory effort; no respiratory distress, no labored breathing and no cough Cardiovascular: Rate/Rhythm: regular rate and regular rhythm Vessels: dorsalis pedis pulses present and radial pulses present Gastrointestinal (Abdomen): soft and non-distended with normal BS, no rebound tenderness or guarding; a bulge was noted in the left inguinal region about [address] between the pubis symphysis and Anterior Inferior Iliac Spine--the bulge was non-reducible and tender to palpation Musculoskeletal: no calf pain Skin: no rashes, warm and dry Neurologic: moves all extremities Results & Data Results & Data ([facility]) Vital Signs (Past 12 Hours) Vital Signs Temp Pulse Resp BP Pulse Ox 05/18/20 22:18 96 05/18/20 22:16 76 17 183/90 H 96 05/18/20 21:15 36.6 C 85 18 193/100 H 96 PG Care Time/CCT Total # of Minutes Spent Total Time Spent with Patient: Total time spent is greater than 50% in coordination of care (as documented) at patient's floor/unit and/or counseling patient: Coding Level of Care Code 07222 Initial Inpt Care Lvl 3 Diagnoses Inguinal hernia of left side with obstruction K40.30
[2020-05-19] MEDS: LACTATED RINGER'S 1,000 ML IV SCH ×2 (00:59→15:40)
[2020-05-19] MEDS: ONDANSETRON INJ 2 MG/ML 2 ML VIAL IV SCH ×4 (01:05→18:38)
[2020-05-19] MEDS: MoRPHine SULFATE 2 MG/ML CARP IV PRN ×2 (01:06→23:29)
[2020-05-19] MEDS ORDERED: CLINDAMYCIN 600 MG/54 ML BAG IV SCH (06:00)
[2020-05-19] MEDS: LEVOTHYROXINE SODIUM 150 MCG TABLET PO SCH (06:15)
[2020-05-19] MEDS ORDERED: MIDAZOLAM HCL 1 MG/ML 2ML VIAL ONE (07:00)
[2020-05-19] MEDS ORDERED: DEXAMETHASONE SOD INJ 4 MG/ML VIAL ONE (07:00)
[2020-05-19] MEDS ORDERED: ONDANSETRON INJ 2 MG/ML 2 ML VIAL ONE (07:00)
[2020-05-19] MEDS ORDERED: PROPOFOL IV EMULSION 10 MG/ML 20 ML VIAL IV ONE (07:00)
[2020-05-19] MEDS ORDERED: LIDOCAINE HCL 2% 2 ML VIAL/AMP(20MG/ML) INFIL ONE (07:00)
[2020-05-19] MEDS ORDERED: fentaNYL citrate 100 MCG/2 ML VIAL ONE ×2 (07:00→08:22)
[2020-05-19] MEDS ORDERED: BUPIVACAINE/EPINEPHRINE 0.5% MPF 1:200,000 30 ML VIAL ONE (07:10)
--- NOTE | 2020-05-19 07:14 | XRay Report ---
XR chest 1V portable CLINICAL HISTORY: pre-op COMPARISON STUDY: 04/08/2019 FINDINGS: The heart is the upper limits of normal in size. There is no failure. There is no lobar con solidation. There are no pleural effusions. There is minor atelectasis/scarring at the right medial l nneka base.[ IMPRESSION: No active disease in the chest. ACT 112: Negative or not required by law. Electronically signed by: Cas Dickey M.D. 05/19/2020 7:13 AM
--- NOTE | 2020-05-19 07:24 | History & Physical Bridge Note ---
Date of Service May 19, 2020 History & Physical Bridge Note I have examined the patient, reviewed the History & Physical and in the interval since the performance of the History & Physical I have noted the following changes of clinical significance: no changes noted pt seen. feeling better. discussed options/risks ( bleeding/infection/infection of mesh/chronic pain/dvt/pe/mi/cva/injury to other organs etc...). questions answered. will proceed this am with open left inguinal hernia repair with mesh.
--- NOTE | 2020-05-19 07:31 | CT Scan Report ---
CT SCAN OF THE ABDOMEN AND PELVIS WITH IV CONTRAST CLINICAL HISTORY: Left lower quadrant abdominal pain. COMPARISON STUDY: Abdominal CT dated 03/09/2015. TECHNIQUE: Following the IV administration of 94 cc of Optiray 320, CT scan of the abdomen and pelvi s is performed from the lung bases to the proximal femora. Images are reviewed in the axial, sagittal , and coronal planes. IV contrast was administered without complication. A dose lowering technique wa s utilized adhering to the principles of ALARA. CT DOSE: 653.11 mGy.cm FINDINGS: Lung bases: The heart is normal in size and without pericardial effusion. The lung bases are clear no ting bibasilar scarring/atelectasis. There is a small hiatal hernia. Liver: The contrast-enhanced liver is normal in size, contour, and attenuation. There mild central no intrahepatic biliary ductal dilatation. The hepatic veins and portal veins are patent. Gallbladder: Surgically absent noting clips in the gallbladder fossa. Spleen: Normal in size and attenuation. Pancreas: Moderately atrophic and grossly unremarkable. Adrenal glands: Unremarkable. Kidneys: The contrast enhanced kidneys demonstrate mild cortical atrophy and are without hydronephros is. The kidneys enhance symmetrically. A 1.8 cm cyst is noted in the left upper pole. There are numer ous peripelvic cysts of the left kidney. Abdominal vasculature: There is advanced atherosclerotic calcification and mild ectasia of the abdomi nal aorta. Bowel: A left inguinal hernia contains fecalized loops of small bowel. The upstream small bowel loops are distended and fecalized measuring up to 3 cm in diameter. There is minimal surrounding inflammat ory change in the appearance is consistent with small bowel obstruction. There is no pneumatosis inte stinalis or portal venous gas. No focally thick walled bowel loops are identified. There is moderate diverticulosis of the sigmoid colon without CT evidence of acute diverticulitis. The cecum is located in the left lower quadrant. The appendix is not clearly identified. Peritoneum: There is no intraperitoneal free air or abdominal ascites. Lymphadenopathy: None. Pelvic viscera: Evaluation of the pelvis is degraded by streak artifact from a right hip arthroplasty . The bladder is decompressed and not well evaluated. The uterus is surgically absent. No adnexal les ion is seen. There is evidence of previous right inguinal herniorrhaphy. A left inguinal hernia conta ins small bowel and fluid. Skeletal structures: The skeletal structures are osteopenic. There is a mild superior endplate compre ssion deformity of L2. Moderate lumbosacral spondylosis is observed. No lytic or blastic lesions are seen. A right hip arthroplasty is in place. There is a subacute to chronic right pubic ring fracture. IMPRESSION: 1. Findings are consistent with a small bowel obstruction secondary to an incarcerated left inguinal hernia. 2. No focally thick walled bowel loops are identified. No intraperitoneal free air is seen. 3. Sigmoid diverticulosis without CT evidence of acute diverticulitis. 4. There is a subacute to chronic nonunited anterior right pubic ring fracture. Clinical correlation will be required. 5. A mild superior endplate compression deformity of L2 is age indeterminant and new from 2014. Corre late for point tenderness. 6. Additional findings as above. ACT 112: Negative or not required by law. Electronically signed by: Fred Eden M.D. 05/19/2020 7:30 AM
--- NOTE | 2020-05-19 07:49 | Anesthesiology Consultation ---
Date of Service May 19, 2020 Assessment & Plan (1) Encounter for pre-operative examination: Chart Review Chart Review: Acceptable Risk for Surgery History Surgery Operation Date: 05/19/20 09:50 Proposed Procedures p Left Open Inguinal Hernia Repair - Gino Parker DO Height/Weight Weight: 82.5 kg Allergies Allergy/AdvReac Type Severity Reaction Status Date / Time adhesive Allergy Intermediate bandaids- Verified 05/18/20 22:24 redness, pruritus Penicillins Allergy Mild rash, Verified 05/18/20 22:24 mouth sores Medications Home Medications Medication Instructions Recorded Confirmed Last Taken Calcium 600 + D(3) 1 cap PO QAM 08/05/18 05/18/20 05/18/20 atenolol 50 mg PO QAM 08/05/18 05/18/20 05/18/20 glucosamine-chondroitin [Osteo 1 tab PO QAM 08/05/18 05/18/20 05/18/20 Bi-Flex] levothyroxine 150 mcg PO QAM 08/05/18 05/18/20 05/18/20 lisinopril 10 mg PO QAM 08/05/18 05/18/20 05/18/20 multivitamin 1 tab PO QDD 08/05/18 05/18/20 05/18/20 simvastatin 40 mg PO HS 08/05/18 05/18/20 05/17/20 diphenhydramine HCl 25 mg PO Q6H PRN 04/02/19 05/18/20 Unknown hyoscyamine sulfate 0.125 mg PO Q4H PRN 04/02/19 05/18/20 06/05/19 18:00 aspirin 81 mg PO HS 05/18/20 05/18/20 05/17/20 Active Medications Generic Name Dose Route Start Last Admin Trade Name Freq PRN Reason Stop Dose Admin Lactated Ringer's 1,000 mls @ 75 mls/hr 05/19/20 00:34 05/19/20 00:59 Lr IV 06/18/20 00:33 75 mls/hr .[id number] BELKIS Administration Levothyroxine Sodium 150 mcg 05/19/20 06:30 05/19/20 06:15 Levothyroxine Sodium 150 Mcg Tablet PO 06/18/20 06:29 150 mcg DAILYBB BELKIS Administration Morphine Sulfate 2 mg 05/19/20 00:34 05/19/20 01:06 Morphine Sulfate 2 Mg/Ml Carp IV 06/02/20 00:33 2 mg Q4H PRN Administration Pain Ondansetron HCl 4 mg 05/19/20 00:34 05/19/20 06:15 Ondansetron Inj 2 Mg/Ml 2 Ml Vial IV 06/18/20 00:33 4 mg Q6H BELKIS Administration NPO Date Last Intake of Fluids: 05/18/20 Time Last Intake of Fluids: 21:00 Date Last Intake of Solids: 05/18/20 Time Last Intake of Solids: 17:30 Past Medical History Medical History Hx of deep venous thrombosis post-op left knee (2006) HX: breast cancer right s/p lumpectomy/XRT (2009) Hyperlipidemia Hypertension Hypothyroidism IBS (irritable bowel syndrome) Osteoarthritis Past Family History Family History Other FHx: cancer Past Surgical History Surgical History History of cholecystectomy History of ERCP 08/30/18: MAC sedation at [facility] History of esophagogastroduodenoscopy (EGD) History of herniorrhaphy History of right hip replacement (~06/2019) History of tooth extraction History of total abdominal hysterectomy and bilateral salpingo-oophorectomy History of total knee replacement LEFT/RIGHT Hx of colonoscopy Hx of lumpectomy RIGHT BREAST Hx of shoulder replacement LEFT Social History Smoking Status: Former smoker tobacco type: cigarettes Hx Alcohol Use: No Hx Substance Use: No substance use type: does not use Physical Exam Vital Signs Last Vital Signs Temp 36.8 C 05/19/20 07:00 Pulse 72 05/19/20 07:00 Resp 18 05/19/20 07:00 BP 136/69 05/19/20 07:00 Pulse Ox 94 05/19/20 07:00 Testing Laboratory Results 05/18/20 21:43 05/18/20 21:43 Urine Color Yellow 05/18/20 21:52 Urine Appearance Clear (Clear) 05/18/20 21:52 Urine pH 5.0 (4.5-7.5) 05/18/20 21:52 Ur Specific [place] 1.026 (1.000-1.030) 05/18/20 21:52 Urine Protein Trace (Negative) H 05/18/20 21:52 Urine Glucose (UA) Negative (Negative) 05/18/20 21:52 Urine Ketones 1+ (Negative) H 05/18/20 21:52 Urine Nitrite Negative (Negative) 05/18/20 21:52 Ur Leukocyte Esterase Negative (Negative) 05/18/20 21:52 Urine WBC (Auto) 1-5 /hpf (0-5) 05/18/20 21:52 Urine RBC (Auto) 5-10 /hpf (0-4) H 05/18/20 21:52 U Hyaline Cast (Auto) 1-5 /lpf (0-5) 05/18/20 21:52 U Epithel Cells (Auto) 10-20 /lpf (0-5) H 05/18/20 21:52 Urine Bacteria (Auto) Negative (Negative) 05/18/20 21:52 05/18/20 21:48 POC Glucose (other) 123 H Electrocardiogram Date: 05/18/20 Findings: + NSR @ (70)
[2020-05-19] MEDS ORDERED: KETOROLAC 30 MG/ML VIAL IV PRN (07:50)
[2020-05-19] MEDS ORDERED: ONDANSETRON INJ 2 MG/ML 2 ML VIAL IV PRN (07:50)
[2020-05-19] MEDS ORDERED: fentaNYL citrate 100 MCG/2 ML VIAL IV PRN (07:50)
[2020-05-19] MEDS ORDERED: ATROPINE SULFATE 0.1 MG/ML 10ML SYR IV PRN (07:50)
[2020-05-19] MEDS ORDERED: ePHEDrine sulfate 50 MG/ML SYR ONE (09:02)
[2020-05-19] MEDS ORDERED: PHENYLEPHRINE 100MCG/ML 5ML SYR ONE (09:03)
--- NOTE | 2020-05-19 09:14 | Operative Report ---
PG Post Operative Report Pre & Post Diagnosis Operation Date: 05/19/20 09:50 Pre-Op Diagnosis: Inguinal Hernia of Left Side with Obstruction Post-Op Diagnosis: Inguinal Hernia of Left Side with Obstruction I identified the patient and participated in the time-out.: Yes Procedure Operation Date: 05/19/20 09:50 Actual Procedures p Left Open Inguinal Hernia Repair with Mesh(Left) - Gino Parker DO Surgeon Gino Parker DO Electrician Elevator Maintenance n/a Estimated Blood Loss 5 Findings Consistent with Post-Op Diagnosis Specimens none Description of Procedure After informed consent was obtained the patient was taken to the operating room and placed in supine position. After successful intubation the left groin was sterilely prepped and draped in usual fashion. I began with an inguinal incision with a 15 blade scalpel. This was carried down through the soft tissue using cautery. The external oblique aponeurosis was skeletonized. A fresh blade was used to make a small opening in this opening which was extended distally with Metzenbaum scissors through the external ring as well as for several centimeters proximally. Once in the inguinal canal I was able to elevate the round ligament as well as the hernia sac off the pubic bone with a blunt finger dissection. A Sintia drain was placed around it. I was then able to use primarily blunt dissection with small amounts of cautery to separate the hernia sac with bowel from the round ligament. I decided to divide the round ligament to make placement of the mesh easier. I was able to reduce the hernia sac with small bowel incarcerated within it without difficulty. I decided to use a plug and patch technique. A polypropylene plug was placed into the hernia defect and secured with 0 Nurolon to surrounding musculature as well as the shelving portion of Poupart's ligament. Next I used a piece of polypropylene mesh as an onlay. It was secured distally to Owen's ligament laterally along the shelving portion of Poupart's ligament and medially along the rectus musculature. The mesh laid nice and flat and tension-free. The wound was thoroughly irrigated. Marcaine with epinephrine was injected around the mass for postoperative analgesia. There was adequate hemostasis. The external bleak aponeurosis was reapproximated using 2-0 Vicryl in a running fashion. Soft tissue was irrigated and closed using 3-0 Vicryl for deep layers and 4-0 Monocryl for skin. Some additional Marcaine was injected around the skin again for postoperative analgesia. Skin glue was used as a dressing. The patient was awakened extubated and transferred recovery in stable condition. I attest to the content of the Intraoperative Record and any orders documented therein. Any exceptions are noted below.
--- NOTE | 2020-05-19 09:48 | Anesthesiology Progress Note ---
Date of Service May 19, 2020 Anesthesia Post Procedure Vital Signs Vital Signs: Temp Pulse Pulse Pulse Resp BP BP 05/19/20 09:35 36.3 C L 91 H 14 127/69 05/19/20 09:25 90 18 124/63 05/19/20 09:15 93 H 15 108/84 05/19/20 09:05 98 H 18 129/63 05/19/20 08:57 36.3 C L 95 H 18 128/68 05/19/20 07:00 36.8 C 72 18 136/69 05/19/20 06:59 36.8 C 77 16 128/74 05/19/20 00:23 36.7 C 87 15 186/91 H 05/19/20 00:00 70 15 158/79 H 05/18/20 23:48 74 19 155/80 H 05/18/20 22:18 05/18/20 22:16 76 17 183/90 H 05/18/20 21:15 36.6 C 85 18 193/100 H Pulse Ox 05/19/20 09:35 96 05/19/20 09:25 95 05/19/20 09:15 99 05/19/20 09:05 98 05/19/20 08:57 98 05/19/20 07:00 94 05/19/20 06:59 95 05/19/20 00:23 92 05/19/20 00:00 96 05/18/20 23:48 98 05/18/20 22:18 96 05/18/20 22:16 96 05/18/20 21:15 96 Pain Intensity Left Back: Pain Intensity: 5 Transfer of Care Handoff Completed per policy Notes Mental Status: alert / awake / arousable Patient Amnestic to Procedure: Yes Nausea / Vomiting: adequately controlled Pain: adequately controlled Airway Patency, RR, SpO2: stable & adequate BP & HR: stable & adequate Hydration State: stable & adequate Anesthetic Complications: no major complications apparent
[2020-05-19] MEDS: ATENOLOL 50 MG TABLET PO SCH (10:17)
[2020-05-19] MEDS: ACETAMINOPHEN 325 MG TAB PO PRN (16:42)
[2020-05-19] MEDS: oxyCODONE HCL IR 5 MG TAB (IMMEDIATE RELEASE) PO PRN (21:57)
--- NOTE | 2020-05-19 22:25 | Electrocardiogram Report ---
Test Reason : Blood Pressure : / mmHG Vent. Rate : 070 BPM Atrial Rate : 070 BPM P-R Int : 146 ms QRS Dur : 086 ms QT Int : 394 ms P-R-T Axes : 040 -35 056 degrees QTc Int : 425 ms Poor data quality, interpretation may be adversely affected Normal sinus rhythm Left axis deviation Abnormal ECG When compared with ECG of 30-AUG-2018 10:06, No significant change was found Confirmed by Len Catherine ([id number]) on 05/19/2020 10:25:08 PM Referred By: REFERRED SELF Confirmed By:Len Catherine
[2020-05-20] MEDS: ONDANSETRON INJ 2 MG/ML 2 ML VIAL IV SCH ×2 (02:09→05:57)
[2020-05-20] MEDS: LACTATED RINGER'S 1,000 ML IV SCH (04:25)
[2020-05-20] MEDS: oxyCODONE HCL IR 5 MG TAB (IMMEDIATE RELEASE) PO PRN (05:51)
[2020-05-20] MEDS: ACETAMINOPHEN 325 MG TAB PO PRN ×2 (05:52→11:24)
[2020-05-20] MEDS: LEVOTHYROXINE SODIUM 150 MCG TABLET PO SCH (05:52)
--- NOTE | 2020-05-20 08:24 | Surgery Progress Note ---
Date of Service May 20, 2020 Assessment & Plan (1) Inguinal hernia of left side with obstruction: POD#1 left inguinal hernia repair patient is overall doing well pain is well controlled, she is tolerating a diet, and ambulating independently incision has a small amount of old bloody drainage on bandage, but otherwise is c/d/i without sign of infection plan to discharge to home today Admission and Anticipated Discharge Date Admission Date: May 18, 2020 Subjective Patient states she had a lousy night, but states it was related to back pain that she has been having. From a surgical standpoint she is doing well. Her pain has been manageable. She is tolerating a diet. Physical Exam Physical Exam: awake/alert, sitting up in chair Constitutional: well developed and well nourished; no acute distress Respiratory: normal respiratory effort Gastrointestinal (Abdomen): Inspection/Auscultation: + abdominal surgical incision (c/d/i, small amount of drainage from lateral incision which is dry); abdomen not distended Percussion/Palpation: abdomen soft Results & Data ([facility]) Vital Signs (Past 12 Hours) Vital Signs Temp Pulse Resp BP Pulse Ox 05/20/20 07:04 37.2 C 77 16 99/64 L 91 05/20/20 03:25 37.2 C 79 16 113/57 L 91 05/19/20 23:00 37.1 C 73 20 135/76 92 PG Care Time/CCT Total # of Minutes Spent Total Time Spent with Patient: Total time spent is greater than 50% in coordination of care (as documented) at patient's floor/unit and/or counseling patient: Coding Level of Care Code None Diagnoses Inguinal hernia of left side with obstruction K40.30
[2020-05-20] MEDS: ATENOLOL 50 MG TABLET PO SCH (11:24)
--- NOTE | 2020-05-24 12:02 | Discharge Summary ---
Date of Service May 24, 2020 Admission HPI Per Admitting Provider 75 year old female has been having non-radiating back pain x 1 week. Earlier today she developed pain in the left inguinal region, causing her to be concerned such that she presented to the ED. Concerning the left groin pain, she notes the pain is an ache like pain that is non-radiating without palliative factors other than pain meds given in the ED. The pain is worse with palpation. She denies N/V. She had a normal BM earlier today without BRBPR or melena. She denies fevers, shakes, chills. She notes when she is feeling well she is quite active, performing various household choirs without difficulty. She can negotiate steps and inclines without CP or SOB. She has been exposed to COVID-19 and has been tested in the past and was (-). Currently she has no fever, cough, SOB, loss of sense of taste or smell. COVID test in the ED this evening was noted to be (-). In the ED she was afebrile with normal WBC. She was not noted to have lab evidence of LORENZO. CT scan of the abdomen showed a left inguinal hernia with small bowel in it with concern for a SBO. Her most recent oral intake was about 5:00 pm o 05/18/20. He prior abdominal surgeries include a cholecystectomy, hysterectomy, and right inguinal hernia repair. At the time of my exam, she was resting comfortably in bed, in no distress. Principal Diagnosis left inguinal hernia with obstruction Discharge Exam awake/alert Constitutional well developed and well nourished; no acute distress Respiratory normal respiratory effort Gastrointestinal (Abdomen) Inspection/Auscultation: + abdominal surgical incision (c/d/i, small amount of drainage from lateral incision which is dry); abdomen not distended Percussion/Palpation: abdomen soft Discharge Data Allergies Allergy/AdvReac Type Severity Reaction Status Date / Time adhesive Allergy Intermediate bandaids- Verified 05/18/20 22:24 redness, pruritus Penicillins Allergy Mild rash, Verified 05/18/20 22:24 mouth sores Consultations 05/18/20 23:30 ED Decision to Admit Stat Procedures Performed Operation Date: 05/19/20 09:50 Actual Procedures p Left Open Inguinal Hernia Repair with Mesh(Left) - Gino Parker, Ordered Studies 05/18/20 21:33 CT abd pelvis IV con only Stat Hospital Course (1) Inguinal hernia of left side with obstruction: This is a 75yF who presented to the [facility] ED on 05/18/20 with complaints of pain in her left groin. Workup in the ED with a CT a/p revealed a left inguinal hernia causing small bowel obstruction. Patient in no acute distress, denied n/v, and had a BM earlier that day. VSS. She was admitted under the general surgery service and was taken to the OR AM of 05/19 for a left inguinal hernia repair with mesh. The patient tolerated the procedure well, see op note for full details. The patient recovered in the PACU and was transferred to the surgical nursing floor in stable condition. Post operatively the patient's diet was advanced as tolerated, pain was manageable with prn medications, and incision remained clean and intact without signs of infection. Patient was able to void without issues and ambulation was encouraged. On POD#1 the patient was deemed stable for discharge to home. She was instructed to follow up with Dr. Parker in clinic within 1-2 weeks. Total Time Total Time Spent Total Time Spent (In Minutes): 15 Discharge Plan Discharge Items Patient Disposition: Home - Self-Care Reason For Visit: HERNIA, SBO Discharge Diagnosis: left inguinal hernia repair Activity: Per Instructions section Lifting: No more than 10 pounds Bathing Comment: may shower starting tomorrow, 05/20/20; no soaking in tubs/pools Exercise/Sports: Wait until after follow-up appointment Driving/Machine Use: do not resume driving while taking narcotics for pain Non-emergency contact: Surgeon Call non-emergency contact if: you have any medication questions, your symptoms worsen, your pain is not controlled, your pain is worsening, your pain is concerning for you, you have a fever, your temperature is above 101.5, your w ound has increased redness, your wound has increased drainage and your wound pain has increased Follow-up/Referrals: Gino Parker DO [Surgeon] - 06/01/20 9:45 am (Please call to schedule follow up in clinic within 2 weeks) Valentine Nuñez DO [Primary Care Provider] - Diet: Regular Addtl Attending Provider Instructions: You may ice your groin on and off alternating every 20 minutes if needed for pain/swelling You have been prescribed a narcotic called [place] (Hydrocodone-Acetaminophen). Do not take [place] concurrently with Tylenol as they both contain Acetaminophen and you should not exceed more than 3 grams of Acetaminophen within a 24 hour time period. You may purchase Ibuprofen over the counter if needed for additional pain control. Ibuprofen 400mg-600mg orally every 6-8 hours, as needed for pain, to be taken with food. Pending Studies at Discharge: No Stand-Alone Forms: My [facility], Opioid Pain Management, Smoking Cessation Medications and DC Order Prescriptions: New hydrocodone-acetaminophen [[place]] 5-325 mg tablet 1 - 2 tab PO .q4-6h PRN (Reason: pain, for initial therapy, max 6 tabs per day) Qty: 15 RF: 0 Continued multivitamin Tablet 1 tab PO QDD RF: 0 simvastatin 40 mg Tablet 40 mg PO HS RF: 0 lisinopril 10 mg Tablet 10 mg PO QAM RF: 0 levothyroxine 150 mcg Tablet 150 mcg PO QAM RF: 0 atenolol 50 mg Tablet 50 mg PO QAM RF: 0 glucosamine-chondroitin [Osteo Bi-Flex] 250-200 mg Tablet 1 tab PO QAM RF: 0 Calcium 600 + D(3) 600 mg calcium- 200 unit Capsule 1 cap PO QAM RF: 0 hyoscyamine sulfate 0.125 mg Tablet 0.125 mg PO Q4H PRN (Reason: IRRITABLE BOWEL) RF: 0 diphenhydramine HCl 25 mg Capsule 25 mg PO Q6H PRN (Reason: ALLERGIES) RF: 0 aspirin 81 mg Tablet,Delayed Release (Dr/Ec) 81 mg PO HS RF: 0 Discharge Orders: Discharge Order (Routine); Ordered 05/20/20 Ordered By: Chelsi Avila/Other Patient Handouts: Preventing Deep Vein Thrombosis Admission Data Admit Date/Time: 05/18/20 23:45 Attending Provider: Gino Parker Admit Provider: Gino Parker Primary Care Provider: Valentine Nuñez Other Providers: Gael Colon Other Interventions: Discharge Summary Assessment (RN) Last Done: 05/20/20 08:45 Coding Level of Care Code D/C Day Management <30 mins Diagnoses Inguinal hernia of left side with obstruction K40.30
== END 2020-05-20 11:46 | disposition home or self-care (01) | DRG 352 ==
LOC: ED 21:14 → 3N 23:45 → INTOOBSV 23:45 → 3N 05-19 00:14

== ENCOUNTER 2023-04-08 17:55 | Inpatient (IN) ==
[2023-04-08] MEDS ORDERED: MoRPHine SULFATE 4 MG/ML 1 ML CARP\\VIAL IV PRN (18:24)
[2023-04-08] MEDS ORDERED: ACETAMINOPHEN 1,000 MG/100 ML VIAL IV STA (18:24)
[2023-04-08] MEDS ORDERED: MoRPHine SULFATE 2 MG/ML CARP IV PRN (18:24)
[2023-04-08] MEDS ORDERED: SODIUM CHLORIDE 0.9% 500 ML IV SCH (18:30)
--- NOTE | 2023-04-08 18:59 | Emergency Department Note ---
Impression & Plan Closed intertrochanteric fracture of left hip, Closed fracture of left distal radius, Fall from standing ED Provider Note NAME: KATHLEEN HANEY AGE: 78 SEX: F ARRIVES VIA: Ambulance INFORMANT: Patient ED PROVIDER(S): Rohit Faulkner MD CHIEF COMPLAINT: Fall, left hip and wrist pain PLAN: Disposition: Admit MEDICAL DECISION MAKING: The patient is a pleasant 78-year-old woman with a past medical history of breast cancer, osteoarthritis, recent right total shoulder replacement approximately [address] Forbes, [place] [facility] who presents to emergency department via EMS after having a fall where she thinks she tripped over her own feet when she was sweeping found her left side suffering pain in her left hip which is rotated inward and shortened. She further has some mild swelling of her left wrist though this did not cause significant pain. She is not on anticoagulation. She has any head strike or loss conscious. She denies any neck or back pain. Denies any chest pain or abdominal pain. Denies any recent illness including fevers, chills, cough, congestion, GI or symptoms. She reports right shoulder surgery has been doing well and she has been doing physical therapy and was due to get her nickolas removed next week. On my evaluation the patient is uncomfortable no acute distress, afebrile with stable vital signs. She has tenderness of the left inguinal region/hip with internal rotation of the hip and shortening. Distal PMS is intact. She has mild swelling of the dorsal aspect of the left wrist though range of motion appears to be intact with only minimal discomfort. Distal PMS is intact. EKG without overt acute ischemia. CXR negative for acute cardiopulmonary process per my personal preliminary review/interpretation. Plan as well as left hip and pelvis demonstrates displaced, angulated intertrochanteric fracture per my personal preliminary review and interpretation. Plain film of the left wrist demonstrates intra-articular distal radius fracture per my personal preliminary review and interpretation. WBC and platelets within normal limits. H/H 10.8/32.6 decreased from prior though no post operative values for comparison chemistry without metabolic acidosis. Electrolytes and LFTs unremarkable. TSH within normal limits. UA without convincing evidence of infection. Case was discussed with Dr. Persaud, orthopedic surgery on-call. Appreciate consultation recommendations. Agrees with plan for admission to hospital service for operative clearance. Agrees with volar splinting of left wrist fracture. He will relay to Dr. Forbes, [facility], regarding the patient's presentation for assessment tomorrow. Patient was updated on findings and agrees with plan for admission. Case was discussed with Breezy Winters [facility] hospitalist who will evaluate the patient for admission. Triage Nursing notes reviewed and agree them. Prior/external medical records reviewed Vital Signs: reviewed Differential diagnosis: Fracture, dislocation, contusion, intra-abdominal, pneumothorax, intrathoracic, intracranial, neurologic, compartment syndrome, rhabdomyolysis, as well as other pathologies. ER treatment provided: See below. Diagnostics interpreted by me: ECG: Normal sinus rhythm, 65 bpm, no ectopy, nonspecific ST and T wave abnormality, no overt ST elevation or depression, QTc 434, QRS 84. Cardiac Monitoring: An order for continuous cardiac monitoring was placed and demonstrated Normal sinus rhythm, 65 bpm, no ectopy. Laboratory studies: See below Imaging studies: See below Consultation(s): Dr. Persaud, orthopedic surgery on-[facility] HPI: The patient is a pleasant 78-year-old woman with a past medical history of breast cancer, osteoarthritis, recent right total shoulder replacement approximately [address] Forbes, [facility] who presents to emergency department via EMS after having a fall where she thinks she tripped over her own feet when she was sweeping found her left side suffering pain in her left hip which is rotated inward and shortened. She further has some mild swelling of her left wrist though this did not cause significant pain. She is not on anticoagulation. She has any head strike or loss conscious. She denies any neck or back pain. Denies any chest pain or abdominal pain. Denies any recent illness including fevers, chills, cough, congestion, GI or symptoms. She reports right shoulder surgery has been doing well and she has been doing physical therapy and was due to get her nickolas removed next week. ROS: See above HPI for pertinent positives & negatives. A total of 10 systems reviewed and were otherwise negative. VITALS:See Below PHYSICAL EXAMINATION: GENERAL: Awake, alert, uncomfortable-appearing, in no distress HENT: Normocephalic, atraumatic. Oropharynx with dry mucous membranes and otherwise unremarkable. EYES: Normal conjunctiva. Sclera non-icteric. EOMI. No nystamgus. PEARRL. NECK: Supple. No nuchal rigidity. FROM. No JVD. RESPIRATORY: Clear to auscultation. CARDIAC: Regular rate, normal rhythm. Extremities warm and well perfused. Pulses equal. ABDOMEN: Soft, non-distended. No tenderness to palpation. No rebound or guarding. No masses. RECTAL: Deferred. MUSCULOSKELETAL: Chest examination reveals no tenderness. The back is symmetrical on inspection without obvious abnormality. There is no CVA tenderness to palpation. Tenderness of the left inguinal region/hip with internal rotation of the hip and shortening. Distal PMS is intact. She has mild swelling of the dorsal aspect of the left wrist though range of motion appears to be intact with only minimal discomfort. Distal PMS is intact. Right shoulder staple/incision site c/d/i. LOWER EXTREMITIES: Calves are equal size bilaterally and non-tender. No edema. No discoloration. NEURO: Normal sensorium. No sensory or motor deficits noted. SKIN: No rash or jaundice noted. Rohit Faulkner MD Past Med/Surg History Medical History Nausea and vomiting after administration of anesthetic agent GERD (gastroesophageal reflux disease) well controlled and stable Hx of diverticulitis of colon No recent issues Hx of deep venous thrombosis post-op left knee surgery (2006) - on blood thinners x months - no issues since that time- no issues with subsequent surgeries HX: breast cancer right s/p lumpectomy/XRT (2009) no arm restriction per patient IBS (irritable bowel syndrome) Hypothyroidism Hypertension Hyperlipidemia Surgical History S/P left inguinal hernia repair (05/19/20) Left Open Inguinal Hernia Repair with [facility]esh Dr. Parker 05/19/2020 History of right hip replacement (~06/2019) History of ERCP 08/30/18: MAC sedation at [facility] Hx of colonoscopy History of total abdominal hysterectomy and bilateral salpingo-oophorectomy Hx of lumpectomy RIGHT BREAST Hx of shoulder replacement LEFT History of total knee replacement LEFT/RIGHT History of esophagogastroduodenoscopy (EGD) History of herniorrhaphy History of cholecystectomy History of tooth extraction Family History Other FHx: cancer No family history of adverse response to anesthesia Social History Smoking Status: Former smoker Tobacco Type: Cigarettes Second Hand Exposure: Yes (hx); Do You Dip or Chew Tobacco: No; Hx Alcohol Use: No Hx Substance Use: No Preferred Language: German Communication Ability: Effective Call Center Support Consultant Required: No Beliefs That Will Affect Care: None marital status: Current Living Situation: Spouse Other Information That Helps Us Care for You: No Feels Safe at Home: Yes Safety Concerns: Feels Safe At This Time Assistive Devices: Denture - Upper and Glasses Assistive Devices Comment: denture - upper partial Allergies Allergies Allergy/AdvReac Type Severity Reaction Status Date / Time adhesive Allergy Intermediate bandaids- Verified 03/23/23 11:14 redness, pruritus Penicillins Allergy Intermediate rash, Verified 03/23/23 11:14 mouth sores Home Meds Home Medications Medication Instructions Recorded Confirmed atenolol 50 mg tablet 50 mg PO QAM 08/05/18 04/08/23 calcium carbonate 600 mg-vitamin 1 cap PO QAM 08/05/18 04/08/23 D3 5 mcg (200 unit) capsule (Calcium 600 + D(3)) glucosamine-chondroitin 250 mg-200 1 tab PO BID 08/05/18 04/08/23 mg tablet (Osteo Bi-Flex) multivitamin 1 tab PO QDD 08/05/18 04/08/23 diphenhydramine HCl 25 mg capsule 25 mg PO Q6H PRN ALLERGIES 04/02/19 04/08/23 hyoscyamine sulfate 0.125 mg 0.125 mg PO Q4H PRN IRRITABLE BOWEL 04/02/19 04/08/23 tablet (Levsin) aspirin 81 mg tablet,delayed 81 mg PO HS 05/18/20 04/08/23 release amlodipine 5 mg tablet 5 mg PO QAM 02/14/23 04/08/23 famotidine 20 mg tablet 20 mg PO QAM 02/14/23 04/08/23 levothyroxine 125 mcg tablet 125 mcg PO QAM 02/14/23 04/08/23 lisinopril 40 mg tablet 40 mg PO QAM 02/14/23 04/08/23 Previous Rx's Medication Instructions Recorded tramadol 50 mg tablet 50 mg PO Q6H PRN pain #30 tabs 03/24/23 Results & Data (ED) Vital Signs Vital Signs - 24 hr 04/08/23 18:09 04/08/23 18:14 04/08/23 19:14 Temperature 37 C Temperature Source Oral Pulse Rate 63 63 Pulse Rate [Bilateral Apical] 64 Respiratory Rate 20 20 Respiratory Effort / Characteristics Non-Labored Spontaneous Respiratory Depth Normal Blood Pressure 138/67 Blood Pressure [Left Arm] 138/67 Blood Pressure Mean 90 Blood Pressure Mean [Left Arm] 90 Pulse Oximetry 97 97 Oxygen Delivery Method Room Air Room Air Sepsis Recent Fever Within 48 Hours No Sepsis New/Unexplained Change in Mental Status N/A Sepsis Action Taken by Nursing No Action Required 04/08/23 20:15 04/08/23 21:22 Temperature Temperature Source Pulse Rate Pulse Rate [Bilateral Apical] 66 68 Respiratory Rate 20 20 Respiratory Effort / Characteristics Respiratory Depth Blood Pressure Blood Pressure [Left Arm] 143/70 H 110/54 L Blood Pressure Mean Blood Pressure Mean [Left Arm] 94 72 Pulse Oximetry 98 95 Oxygen Delivery Method Room Air Sepsis Recent Fever Within 48 Hours Sepsis New/Unexplained Change in Mental Status Sepsis Action Taken by Nursing Laboratory Data Attestation: I reviewed the patient's lab results. 04/09/23 00:22 04/09/23 00:22 Lab Results 04/08/23 04/08/23 Range/Units 19:12 19:30 WBC 11.11 H (4.8-10.8) K/ul RBC 3.48 L (4.20-5.40) M/uL Hgb 10.8 L (12.0-16.0) g/dl Hct 32.6 L (37.0-47.0) % MCV 93.7 (80.0-100.0) fL MCH 31.0 (25.0-34.0) pg MCHC 33.1 (32.0-36.0) g/dL RDW Std Deviation 49.1 H (36.4-46.3) fL RDW Coeff of Angel 14.3 (11.5-14.5) % Plt Count 296 (130-400) K/uL MPV 9.7 (9.4-12.4) fL Immature Gran % (Auto) 0.5 % Neut % (Auto) 85.3 % Lymph % (Auto) 7.9 % [place] % (Auto) 5.4 % Eos % (Auto) 0.5 % Baso % (Auto) 0.4 % Neut # (Auto) 9.48 H (1.40-6.50) K/uL Lymph # (Auto) 0.88 L (1.20-3.40) K/uL [place] # (Auto) 0.60 H (0.11-0.59) K/uL Eos # (Auto) 0.05 (0.00-0.50) K/uL Baso # (Auto) 0.04 (0.00-0.20) K/uL Immature Gran # (Auto) 0.06 (0.01-0.20) K/uL PT 10.7 (9.0-12.0) Seconds INR 1.0 (0.9-1.1) APTT 26.3 (21.0-31.0) Seconds PTT Ratio 0.9 Sodium 132 L (136-145) mmol/L Potassium 4.1 (3.5-5.1) mmol/L Chloride 101 (98-107) mmol/L Carbon Dioxide 22 (21-32) mmol/L Anion Gap 9 (3-11) BUN 23 (6-23) mg/dl Creatinine 0.96 (0.6-1.2) mg/dl Est Cr Clr Drug Dosing 48.5 ml/min Est GFR ( Amer) 64.7 ml/min Est GFR (Non-Af Amer) 55.9 ml/min BUN/Creatinine Ratio 24.0 H (10-20) Glucose 118 H (70-99(Fasting)) mg/dl Estimat Average Glucose 120 mg/dl Hemoglobin A1c 5.8 H (4.5-5.6) % Calcium 9.1 (8.6-10.3) mg/dl Total Bilirubin 0.8 (0.2-1.0) mg/dl AST 21 (13-39) U/L ALT 16 (7-52) U/L Alkaline Phosphatase 82 (34-104) U/L Total Protein 6.7 (6.0-8.3) gm/dl Albumin 3.7 (3.4-5.0) gm/dl Globulin 3.0 (2.5-4.0) gm/dl Albumin/Globulin Ratio 1.2 (0.9-2) TSH 0.541 (0.300-4.500) uIu/ml Urine Color Yellow Urine Appearance Clear (Clear) Urine pH 5.0 (4.5-7.5) Ur Specific [place] 1.021 (1.000-1.030) Urine Protein Negative (Negative) Urine Glucose (UA) Negative (Negative) Urine Ketones 2+ H (Negative) Urine Blood Trace H (Negative) Urine Nitrite Negative (Negative) Urine Bilirubin Negative (Negative) Urine Urobilinogen Negative (Negative) Ur Leukocyte Esterase Negative (Negative) Urine WBC (Auto) 1-5 (0-5) /hpf Urine RBC (Auto) 5-10 H (0-4) /hpf U Hyaline Cast (Auto) 1-5 (0-5) /lpf U Epithel Cells (Auto) 5-10 H (0-5) /lpf Urine Bacteria (Auto) Negative (Negative) Administered Medications Acetaminophen (Acetaminophen 325 Mg Tab) 650 mg PO QID PRN PRN Reason: pain/fever Stop: 05/08/23 21:51 Last Admin: 04/09/23 02:27 Dose: 650 mg Documented By: ALEXANDRA Sodium Chloride (Nss) 1,000 mls @ 80 mls/hr IV .[id number] [facility] Stop: 05/09/23 02:59 Last Admin: 04/09/23 03:25 Dose: 80 mls/hr Documented By: ALEXANDRA Levothyroxine Sodium (Levothyroxine Sodium 125 Mcg Tablet) 125 mcg PO DAILYBB [facility] Stop: 05/09/23 06:29 Last Admin: 04/09/23 05:48 Dose: 125 mcg Documented By: ALEXANDRA Morphine Sulfate (Morphine Sulfate 2 Mg/Ml Carp) 2 mg IV Q3H PRN PRN Reason: Pain Stop: 04/22/23 21:51 Last Admin: 04/09/23 00:25 Dose: 2 mg Documented By: CHARISMA Discontinued Medications Acetaminophen (Ofirmev) 1,000 mg in 100 mls @ 400 mls/hr IV NOW STA Stop: 04/08/23 18:38 Last Infusion: 04/08/23 19:40 Dose: Infused Documented By: Admin: 04/08/23 19:16 Dose: 400 mls/hr Documented By: STEPH Sodium Chloride (Nss) 500 mls @ 80 mls/hr IV .[id number] [facility] Stop: 05/08/23 18:29 Last Infusion: 04/08/23 21:16 Dose: Infused Documented By: Infusion: 04/08/23 20:47 Dose: 60 mls/hr Documented By: Admin: 04/08/23 19:15 Dose: 80 mls/hr Documented By: STEPH Sodium Chloride (Nss) 500 mls @ 75 mls/hr IV .[id number] ONE Stop: 04/09/23 03:02 Last Infusion: 04/09/23 00:10 Dose: Infused Documented By: Admin: 04/08/23 20:48 Dose: 60 mls/hr Documented By: STEPH Sodium Chloride (Nss) 500 mls @ 500 mls/hr IV .Q1H ONE Stop: 04/09/23 03:11 Last Infusion: 04/09/23 03:20 Dose: Infused Documented By: Admin: 04/09/23 02:20 Dose: 500 mls/hr Documented By: ALEXANDRA Morphine Sulfate (Morphine Sulfate 2 Mg/Ml Carp) 1 mg IV Q2H PRN PRN Reason: Moderate Pain (Rating 3,4,5,6) Stop: 04/22/23 18:23 Last Admin: 04/08/23 19:15 Dose: 1 mg Documented By: STEPH Morphine Sulfate (Morphine Sulfate 4 Mg/Ml 1 Ml Carp\Vial) 2 mg IV Q2H PRN PRN Reason: Severe Pain (Rating 7,8,9,10) Stop: 04/22/23 18:23 Last Admin: 04/08/23 21:21 Dose: 2 mg Documented By: STEPH Imaging Data Radiologist's Impression: Wrist X-Ray 04/08/23 18:27 XR wrist LT min 3V routine CLINICAL HISTORY: pain fall TECHNIQUE: 4 views of the left wrist were obtained. Comparison: None available at the time of this dictation. FINDINGS: There is a comminuted intra-articular fracture of the distal radial metadiaphysis with overriding of fragments Osteophyte formation and joint space narrowing is seen. No soft tissue abnormality is seen. IMPRESSION: Comminuted intra-articular distal radial fracture. Degenerative changes are seen without definite carpal or metacarpal fractures. ACT 112: Negative or not required by law. Electronically signed by: Jose Antonio Bajwa M.D. 04/08/2023 8:02 PM Chest X-Ray 04/08/23 19:45 XR chest 1V portable CLINICAL HISTORY: preop TECHNIQUE: Single frontal radiograph of the chest was obtained. 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 Cardiomegaly is noted. The aortic arch is calcified. The lungs are clear. No evidence of pleural effusion or pneumothorax. IMPRESSION: No acute chest disease. ACT 112: Negative or not required by law. Electronically signed by: Jose Antonio Bajwa M.D. 04/08/2023 8:01 PM Discharge Plan Visit Data Chief Complaint: Hip Pain ED Provider: Rohit Faulkner Discharge Problem: Closed intertrochanteric fracture of left hip, Closed fracture of left distal radius, Fall from standing Patient Disposition: Home - Self-Care Discharge Instructions Interventions: ED Discharge Assessment Last Done: 04/09/23 00:11 Discharge Problem: Closed intertrochanteric fracture of left hip Qualifiers: Encounter type: initial encounter Fracture alignment: displaced Qualified Code(s): S72.142A - Displaced intertrochanteric fracture of left femur, initial encounter for closed fracture Closed fracture of left distal radius Qualifiers: Encounter type: initial encounter Fracture morphology: other intra-articular Q ualified Code(s): S52.572A - Other intraarticular fracture of lower end of left radius, initial encounter for closed fracture Fall from standing Qualifiers: Encounter type: initial encounter Qualified Code(s): W19.XXXA - Unspecified fall, initial encounter
[2023-04-08 19:35] LABS: Basophils # (auto) 0.04 K/uL (0.00-0.20); Basophils % (auto) 0.4 %; Eosinophils # (auto) 0.05 K/uL (0.00-0.50); Eosinophils % (auto) 0.5 %; Hematocrit (blood only) 32.6 % (37.0-47.0); Hemoglobin 10.8 g/dl (12.0-16.0); Immature Granulocytes # (auto) 0.06 K/uL (0.01-0.20); Immature Granulocytes % (auto) 0.5 %; Lymphocytes # (auto) 0.88 K/uL (1.20-3.40); Lymphocytes % (auto) 7.9 %; Mean Corpuscular Hgb Conc 33.1 g/dL (32.0-36.0); Mean Corpuscular Volume 93.7 fL (80.0-100.0); Mean Platelet Volume 9.7 fL (9.4-12.4); Monocytes % (auto) 5.4 %; Neutrophils # (auto) 9.48 K/uL (1.40-6.50); Neutrophils % (auto) 85.3 %; Platelet Count 296 K/uL (130-400); RDW Coefficient of Variation 14.3 % (11.5-14.5); RDW Standard Deviation 49.1 fL (36.4-46.3); Red Blood Count 3.48 M/uL (4.20-5.40); White Blood Count 11.11 K/ul (4.8-10.8)
[2023-04-08 19:50] LABS: Appearance Urine Clear (Clear); Bacteria Urine Automated Negative (Negative); Bilirubin Urine Negative (Negative); Blood Urine Trace (Negative); Color Urine Yellow; Glucose Urine UA Negative (Negative); Ketones Urine 2+ (Negative); Leukocyte Esterase Urine Negative (Negative); Nitrite Urine Negative (Negative); Protein Urine Negative (Negative); Specific Gravity Urine 1.021 (1.000-1.030); Urobilinogen Urine Negative (Negative)
[2023-04-08 19:52] LABS: Albumin Globulin Ratio 1.2 (0.9-2); Albumin Level 3.7 gm/dl (3.4-5.0); Bilirubin,Total 0.8 mg/dl (0.2-1.0); Calcium 9.1 mg/dl (8.6-10.3); Creatinine Clr Calc Pharmacy 48.5 ml/min; Est GFR (African American) 64.7 ml/min; Est GFR (Non-African American) 55.9 ml/min; Potassium 4.1 mmol/L (3.5-5.1); Total Protein 6.7 gm/dl (6.0-8.3)
--- NOTE | 2023-04-08 20:02 | XRay Report ---
XR chest 1V portable CLINICAL HISTORY: preop TECHNIQUE: Single frontal radiograph of the chest was obtained. 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 Cardiomegaly is noted. The aortic arch is calcified. The lungs are clear. No evidence of pleural effusion or pneumothorax. IMPRESSION: No acute chest disease. ACT 112: Negative or not required by law. Electronically signed by: Jose Antonio Bajwa M.D. 04/08/2023 8:01 PM
[2023-04-08 20:03] LABS: Partial Thromboplastin Ratio 0.9; Partial Thromboplastin Time 26.3 Seconds (21.0-31.0); Prothrombin Time 10.7 Seconds (9.0-12.0)
--- NOTE | 2023-04-08 20:03 | XRay Report ---
XR wrist LT min 3V routine CLINICAL HISTORY: pain fall TECHNIQUE: 4 views of the left wrist were obtained. Comparison: None available at the time of this dictation. FINDINGS: There is a comminuted intra-articular fracture of the distal radial metadiaphysis with overriding of fragments Osteophyte formation and joint space narrowing is seen. No soft tissue abnormality is seen. IMPRESSION: Comminuted intra-articular distal radial fracture. Degenerative changes are seen without definite car pal or metacarpal fractures. ACT 112: Negative or not required by law. Electronically signed by: Jose Antonio Bajwa M.D. 04/08/2023 8:02 PM
[2023-04-08] MEDS ORDERED: SODIUM CHLORIDE 0.9% 500 ML IV ONE (20:23)
[2023-04-08 20:53] LABS: Estimated Average Glucose 120 mg/dl; Hemoglobin A1C 5.8 % (4.5-5.6)
[2023-04-08 21:08] LABS: Thyroid Stimulating Hormone 0.541 uIu/ml (0.300-4.500)
--- NOTE | 2023-04-08 21:46 | History & Physical Report ---
Date of Service April 08, 2023 Assessment & Plan (1) Hip fracture: Plan: Left hip fracture, left distal radial fracture secondary to fall Hyponatremia possibly from hypovolemia, mild clinical dehydration given ketonuria New onset anemia, no obvious source of bleed for now Recent right shoulder surgery hypertension, BP on the lower side hyperlipidemia on statin Rx hypothyroidism, euthyroid as of today's TSH history of postop PE as per records right breast cancer status post surgery/radiation/Anastrozole Rx Hyperglycemia likely prediabetes, hemoglobin A1c of 5.8 past tobacco abuse [facility] Orthopedics consult Re: Left hip fracture, left distal radial fracture (Patient known to Dr. Forbes.) N.p.o. until patient seen by Orthopedics in anticipation of procedure. Acceptable risk for cardiac complications resulting from prospective procedure Revised Cardiac Risk Index (RCRI): 1. High-risk type of surgery (examples include vascular and any open intraperitoneal or intrathoracic procedures). No 2. History of ischemic heart disease (history of myocardial infarction or positive exercise test, current compliant of chest pain considered to be secondary to myocardial ischemia, use of nitrate therapy, or ECG with pathological Q waves; do not count prior coronary revascularization procedure unless one of the other criteria for ischemic heart disease is present). No 3. History of heart failure. No 4. History of cerebrovascular disease. No 5. Diabetes mellitus requiring treatment with insulin. No 6. Preoperative serum creatinine >2.0. No Pt has revised cardiac index score of 0 points. (Class I Risk.) 3.9 % 30-day risk of , [place], or cardiac arrest. Acceptable risk for cardiac complications if surgery recommended by Orthopedics and patient/family agreeable to attendant procedural benefits and risks.. IVF Appropriate to hold amlodipine and lisinopril, decrease maintenance beta-blas for now given borderline BP Anemia work-up, transfuse PRBC if hemoglobin less than 7 and or for symptomatic anemia, hold home aspirin for now given unclear indication DVT prophylaxis. SCDs RE possible procedure Recommend pharmacologic anticoagulation once bleeding risk is deemed to be minimal and negligible pending Orthopedics evaluation especially with history of postop PE DVT. Full code Patient requesting updates providers. Mr. John Chandra, contact #[phone]. Text document was generated using [employer] voice recognition software. It may contain grammatical or spelling errors. Kindly contact undersigned for clarification of any documentation item in question. History of Present Illness Chief Complaint: Fall, left hip, left forearm pain Primary Care Provider: Azucena Hernández MD History obtained from patient, family, and records. Medical history significant for hypertension, hyperlipidemia, hypothyroidism, GERD, history of postop PE, right breast cancer status post surgery/radiation/anastrozole Rx, past tobacco abuse. Last confinement 2016 under Orthopedics service for elective right total knee arthroplasty. Patient underwent outpatient right shoulder surgery 2 weeks ago. No postop concerns at home. Patient tripped on her own feet today while doing some household cleaning. Subsequent fall landing on her left side resulting in achy left forearm and left hip pain. Left leg looked deformed as per patient. No head trauma, LOC, no chest pain, no SOB. Denies black/bloody stools/overt bleeding at home. Patient told by not to get up. Patient brought to ER for evaluation by EMS. Medical History as above Surgical History : Carpal tunnel surgeries, cholecystectomy, partial mastectomy right, shoulder surgeries, cataract surgeries, inguinal hernia repair, MITCHEL Family History : Lung cancer, heart disease Personal/Social history : Past tobacco abuse, no EtOH intake, retired [employer] Baseline Functionality : Still able to do housework at home without rest/exertional chest pain, S OB prior to injury Allergies Allergy/AdvReac Type Severity Reaction Status Date / Time adhesive Allergy Intermediate bandaids- Verified 03/23/23 11:14 redness, pruritus Penicillins Allergy Intermediate rash, Verified 03/23/23 11:14 mouth sores Home Medications Medication Instructions Recorded Confirmed Type atenolol 50 mg tablet 50 mg PO QAM 08/05/18 04/08/23 History calcium carbonate 600 mg-vitamin 1 cap PO QAM 08/05/18 04/08/23 History D3 5 mcg (200 unit) capsule (Calcium 600 + D(3)) glucosamine-chondroitin 250 mg-200 1 tab PO BID 08/05/18 04/08/23 History mg tablet (Osteo Bi-Flex) multivitamin 1 tab PO QDD 08/05/18 04/08/23 History diphenhydramine HCl 25 mg capsule 25 mg PO Q6H PRN ALLERGIES 04/02/19 04/08/23 History hyoscyamine sulfate 0.125 mg 0.125 mg PO Q4H PRN IRRITABLE BOWEL 04/02/19 04/08/23 History tablet (Levsin) aspirin 81 mg tablet,delayed 81 mg PO HS 05/18/20 04/08/23 History release amlodipine 5 mg tablet 5 mg PO QAM 02/14/23 04/08/23 History famotidine 20 mg tablet 20 mg PO QAM 02/14/23 04/08/23 History levothyroxine 125 mcg tablet 125 mcg PO QAM 02/14/23 04/08/23 History lisinopril 40 mg tablet 40 mg PO QAM 02/14/23 04/08/23 History tramadol 50 mg tablet 50 mg PO Q6H PRN pain #30 tabs 03/24/23 04/08/23 Rx Past Med/Surg History Medical History GERD (gastroesophageal reflux disease) well controlled and stable Hx of deep venous thrombosis post-op left knee surgery (2006) - on blood thinners x months - no issues since that time- no issues with subsequent surgeries Hx of diverticulitis of colon No recent issues HX: breast cancer right s/p lumpectomy/XRT (2009) no arm restriction per patient Hyperlipidemia Hypertension Hypothyroidism IBS (irritable bowel syndrome) Nausea and vomiting after administration of anesthetic agent Surgical History History of cholecystectomy History of ERCP 08/30/18: MAC sedation at [facility] History of esophagogastroduodenoscopy (EGD) History of herniorrhaphy History of right hip replacement (~06/2019) History of tooth extraction History of total abdominal hysterectomy and bilateral salpingo-oophorectomy History of total knee replacement LEFT/RIGHT Hx of colonoscopy Hx of lumpectomy RIGHT BREAST Hx of shoulder replacement LEFT S/P left inguinal hernia repair (05/19/20) Left Open Inguinal Hernia Repair with Mesh Dr. Parker 05/19/2020 Family History Other FHx: cancer No family history of adverse response to anesthesia Social History Smoking Status: Former smoker Tobacco Type: Cigarettes Second Hand Exposure: Yes (hx); Do You Dip or Chew Tobacco: No; Hx Alcohol Use: No Hx Substance Use: No Preferred Language: Paraguayan Communication Ability: Effective Electronics Worker Required: No Beliefs That Will Affect Care: None marital status: Current Living Situation: Spouse Feels Safe at Home: Yes Assistive Devices: None Review of Systems Review of Systems: As per HPI, all other systems reviewed and negative Physical Exam Physical Exam: GENERAL: Comfortable, pleasant, obese, no respiratory distress SKIN: Pallor, warm HEENT: Pale palpebral conjunctivae, no ptosis, dry buccal mucosa NECK : Supple, no tenderness CHEST : Decreased breath sounds, no tenderness HEART : RRR, no obvious murmurs ABDOMEN: Some distention, nontender EXTREMITIES : Minimal LE swelling, left hip tenderness, LUE splint, right shoulder sling, no other conspicuous deformities noted NEUROLOGIC : Coherent, no facial asymmetry, no other gross focality Results & Data Results & Data Vital Signs (Past 12 Hours) Vital Signs Temp Pulse Pulse Resp BP BP Pulse Ox 04/08/23 21:22 68 20 110/54 L 95 04/08/23 20:15 66 20 143/70 H 98 04/08/23 19:14 64 20 138/67 97 04/08/23 18:14 63 04/08/23 18:09 37 C 63 20 138/67 97 O2 Del Method 04/08/23 21:22 Room Air 04/08/23 20:15 04/08/23 19:14 Room Air 04/08/23 18:14 04/08/23 18:09 Room Air Laboratory Results Laboratory Results WBC 11.11 K/ul (4.8-10.8) H 04/08/23 19:12 RBC 3.48 M/uL (4.20-5.40) L 04/08/23 19:12 Hgb 10.8 g/dl (12.0-16.0) L 04/08/23 19:12 Hct 32.6 % (37.0-47.0) L 04/08/23 19:12 MCV 93.7 fL (80.0-100.0) 04/08/23 19:12 MCH 31.0 pg (25.0-34.0) 04/08/23 19:12 MCHC 33.1 g/dL (32.0-36.0) 04/08/23 19:12 RDW Std Deviation 49.1 fL (36.4-46.3) H 04/08/23 19:12 RDW Coeff of Angel 14.3 % (11.5-14.5) 04/08/23 19:12 Plt Count 296 K/uL (130-400) 04/08/23 19:12 MPV 9.7 fL (9.4-12.4) 04/08/23 19:12 Immature Gran % (Auto) 0.5 % 04/08/23 19:12 Neut % (Auto) 85.3 % 04/08/23 19:12 Lymph % (Auto) 7.9 % 04/08/23 19:12 [place] % (Auto) 5.4 % 04/08/23 19:12 Eos % (Auto) 0.5 % 04/08/23 19:12 Baso % (Auto) 0.4 % 04/08/23 19:12 Neut # (Auto) 9.48 K/uL (1.40-6.50) H 04/08/23 19:12 Lymph # (Auto) 0.88 K/uL (1.20-3.40) L 04/08/23 19:12 [place] # (Auto) 0.60 K/uL (0.11-0.59) H 04/08/23 19:12 Eos # (Auto) 0.05 K/uL (0.00-0.50) 04/08/23 19:12 Baso # (Auto) 0.04 K/uL (0.00-0.20) 04/08/23 19: Immature Gran # (Auto) 0.06 K/uL (0.01-0.20) 04/08/23 19:12 PT 10.7 Seconds (9.0-12.0) 04/08/23 19:12 INR 1.0 (0.9-1.1) 04/08/23 19:12 APTT 26.3 Seconds (21.0-31.0) 04/08/23 19:12 PTT Ratio 0.9 04/08/23 19:12 Sodium 132 mmol/L (136-145) L 04/08/23 19:12 Potassium 4.1 mmol/L (3.5-5.1) 04/08/23 19: Chloride 101 mmol/L (98-107) 04/08/23 19:12 Carbon Dioxide 22 mmol/L (21-32) 04/08/23 19:12 Anion Gap 9 (3-11) 04/08/23 19:12 BUN 23 mg/dl (6-23) 04/08/23 19:12 Creatinine 0.96 mg/dl (0.6-1.2) 04/08/23 19:12 Est Cr Clr Drug Dosing 48.5 ml/min 04/08/23 19:12 Est GFR ( Amer) 64.7 ml/min 04/08/23 19:12 Est GFR (Non-Af Amer) 55.9 ml/min 04/08/23 19:12 BUN/Creatinine Ratio 24.0 (10-20) H 04/08/23 19:12 Glucose 118 mg/dl (70-99(Fasting)) H 04/08/23 19:12 Estimat Average Glucose 120 mg/dl 04/08/23 19:12 Hemoglobin A1c 5.8 % (4.5-5.6) H 04/08/23 19:12 Calcium 9.1 mg/dl (8.6-10.3) 04/08/23 19:12 Total Bilirubin 0.8 mg/dl (0.2-1.0) 04/08/23 19:12 AST 21 U/L (13-39) 04/08/23 19:12 ALT 16 U/L (7-52) 04/08/23 19:12 Alkaline Phosphatase 82 U/L (34-104) 04/08/23 19:12 Total Protein 6.7 gm/dl (6.0-8.3) 04/08/23 19:12 Albumin 3.7 gm/dl (3.4-5.0) 04/08/23 19:12 Globulin 3.0 gm/dl (2.5-4.0) 04/08/23 19:12 Albumin/Globulin Ratio 1.2 (0.9-2) 04/08/23 19:12 TSH 0.541 uIu/ml (0.300-4.500) 04/08/23 19:12 Urine Color Yellow 04/08/23 19:30 Urine Appearance Clear (Clear) 04/08/23 19:30 Urine pH 5.0 (4.5-7.5) 04/08/23 19:30 Ur Specific [place] 1.021 (1.000-1.030) 04/08/23 19:30 Urine Protein Negative (Negative) 04/08/23 19:30 Urine Glucose (UA) Negative (Negative) 04/08/23 19:30 Urine Ketones 2+ (Negative) H 04/08/23 19:30 Urine Blood Trace (Negative) H 04/08/23 19:30 Urine Nitrite Negative (Negative) 04/08/23 19:30 Urine Bilirubin Negative (Negative) 04/08/23 19:30 Urine Urobilinogen Negative (Negative) 04/08/23 19:30 Ur Leukocyte Esterase Negative (Negative) 04/08/23 19:30 Urine WBC (Auto) 1-5 /hpf (0-5) 04/08/23 19:30 Urine RBC (Auto) 5-10 /hpf (0-4) H 04/08/23 19:30 U Hyaline Cast (Auto) 1-5 /lpf (0-5) 04/08/23 19:30 U Epithel Cells (Auto) 5-10 /lpf (0-5) H 04/08/23 19:30 Urine Bacteria (Auto) Negative (Negative) 04/08/23 19:30 Impressions Wrist X-Ray 04/08/23 18:27 XR wrist LT min 3V routine CLINICAL HISTORY: pain fall TECHNIQUE: 4 views of the left wrist were obtained. Comparison: None available at the time of this dictation. FINDINGS: There is a comminuted intra-articular fracture of the distal radial metadiaphysis with overriding of fragments Osteophyte formation and joint space narrowing is seen. No soft tissue abnormality is seen. IMPRESSION: Comminuted intra-articular distal radial fracture. Degenerative changes are seen without definite carpal or metacarpal fractures. ACT 112: Negative or not required by law. Electronically signed by: Jose Antonio Bajwa M.D. 04/08/2023 8:02 PM Chest X-Ray 04/08/23 19:45 XR chest 1V portable CLINICAL HISTORY: preop TECHNIQUE: Single frontal radiograph of the chest was obtained. 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 Cardiomegaly is noted. The aortic a rch is calcified. The lungs are clear. No evidence of pleural effusion or pneumothorax. IMPRESSION: No acute chest disease. ACT 112: Negative or not required by law. Electronically signed by: Jose Antonio Bajwa M.D. 04/08/2023 8:01 PM Diagnostic Findings Pelvic x-ray as per my interpretation showed displaced left femoral fracture EKG as per my interpretation : Rate 65, NSR, LAD, LAFB, septal infarct, T wave abnormalities inferior leads
[2023-04-08] MEDS ORDERED: PROMETHAZINE HCL 6.25 MG in SODIUM CHLORIDE 0.9% 50 ML IV PRN (21:52)
[2023-04-09] MEDS: MoRPHine SULFATE 2 MG/ML CARP IV PRN ×2 (00:25→18:14)
[2023-04-09] MEDS ORDERED: NALOXONE HCL 0.4 MG/1 ML VIAL/CARP IV PRN (00:44)
[2023-04-09] MEDS ORDERED: bisacodyL 10 MG SUPP PR PRN (00:44)
[2023-04-09 00:47] LABS: Hematocrit (blood only) 29.2 % (37.0-47.0); Hemoglobin 9.8 g/dl (12.0-16.0); Reticulocyte % 2.2 % (0.5-2.0); Reticulocytes # 0.07 10^6/uL (0.02-0.10)
[2023-04-09 01:23] LABS: Ferritin 118.7 ng/ml (8-388)
[2023-04-09] MEDS ORDERED: SODIUM CHLORIDE 0.9% 500 ML IV ONE (02:12)
[2023-04-09] MEDS: ACETAMINOPHEN 325 MG TAB PO PRN ×2 (02:27→07:22)
[2023-04-09] MEDS: SODIUM CHLORIDE 0.9% 1,000 ML IV SCH ×2 (03:25→17:59)
[2023-04-09] MEDS: LEVOTHYROXINE SODIUM 125 MCG TABLET PO SCH (05:48)
--- NOTE | 2023-04-09 07:04 | XRay Report ---
XR hip LT 2V w pelvis CLINICAL HISTORY: Left hip pain. Fall. COMPARISON STUDY: Pelvis 10/28/2019. FINDINGS: Comminuted and displaced intertrochanteric fracture within the proximal left femur. No disl ocation of the left femoral head. The bones are osteopenic. No acute fracture or dislocation within t he pelvis or right hip. There is a right total arthroplasty. The hardware appears intact. IMPRESSION: Comminuted and displaced intertrochanteric fracture within the proximal left femur. ACT 112: Negative or not required by law. Electronically signed by: Willie Henriquez M.D. 04/09/2023 7:02 AM
[2023-04-09 08:02] LABS: Basophils # (auto) 0.03 K/uL (0.00-0.20); Basophils % (auto) 0.5 %; Eosinophils # (auto) 0.02 K/uL (0.00-0.50); Eosinophils % (auto) 0.3 %; Hematocrit (blood only) 28.4 % (37.0-47.0); Hemoglobin 9.4 g/dl (12.0-16.0); Immature Granulocytes # (auto) 0.02 K/uL (0.01-0.20); Immature Granulocytes % (auto) 0.3 %; Lymphocytes # (auto) 1.08 K/uL (1.20-3.40); Lymphocytes % (auto) 16.3 %; Mean Corpuscular Hemoglobin 31.1 pg (25.0-34.0); Mean Corpuscular Hgb Conc 33.1 g/dL (32.0-36.0); Mean Platelet Volume 10.1 fL (9.4-12.4); Monocytes # (auto) 0.76 K/uL (0.11-0.59); Monocytes % (auto) 11.5 %; Neutrophils % (auto) 71.1 %; Platelet Count 273 K/uL (130-400); RDW Coefficient of Variation 14.4 % (11.5-14.5); RDW Standard Deviation 49.1 fL (36.4-46.3); Red Blood Count 3.02 M/uL (4.20-5.40); White Blood Count 6.61 K/ul (4.8-10.8)
[2023-04-09] MEDS: FAMOTIDINE 20 MG TAB PO SCH (08:17)
[2023-04-09] MEDS: CALCIUM 600MG + VIT D 400 IU TAB PO SCH (08:18)
[2023-04-09 08:37] LABS: Calcium 8.5 mg/dl (8.6-10.3); Creatinine Clr Calc Pharmacy 91.4 ml/min; Est GFR (African American) 105.9 ml/min; Est GFR (Non-African American) 91.4 ml/min; Potassium 3.8 mmol/L (3.5-5.1)
[2023-04-09] MEDS ORDERED: SODIUM CHLORIDE 0.9% 250 ML IV PRN (08:54)
[2023-04-09] MEDS ORDERED: ATENOLOL 25 MG TABLET PO SCH (09:00)
[2023-04-09] MEDS ORDERED: POLYETHYLENE (MIRALAX) 17 GM PACK PO PRN (09:00)
--- NOTE | 2023-04-09 11:05 | Orthopedic Consultation ---
Date of Service April 09, 2023 Assessment & Plan (1) Closed intertrochanteric fracture of left hip: Discussed options with patient. Given her good health and full ambulatory status, we are going to proceed with an open reduction internal fixation of the left hip fracture. We will plan on using a synthes IM long nail. Discussed the risks and benefits with the patient. The decision for surgery was made. She is currently. She is NPO. Plan of surgery this afternoon. History of Present Illness Reason for Consultation: . Requesting Physician: . Attending Physician: Renato Caldwell MD Dennise is a very pleasant 78 y/o female who sustained a left greater trochanteric hip fracture yesterday while cleaning her house. She states that she tripped over something on the floor and fell awkwardly on her left side. She also braced herself with her left hand as she fell and sustained an injury to her wrist as well. She is two weeks post op from a reverse shoulder arthroplasty. She went to [facility] ER where xrays confirmed a displaced left greater tronchanteric hip fracture. She is currently comfortable in bed, alert and oriented. Allergies Allergy/AdvReac Type Severity Reaction Status Date / Time adhesive Allergy Intermediate bandaids- Verified 03/23/23 11:14 redness, pruritus Penicillins Allergy Intermediate rash, Verified 03/23/23 11:14 mouth sores Home Medications Medication Instructions Recorded Confirmed Type atenolol 50 mg tablet 50 mg PO QAM 08/05/18 04/08/23 History calcium carbonate 600 mg-vitamin 1 cap PO QAM 08/05/18 04/08/23 History D3 5 mcg (200 unit) capsule (Calcium 600 + D(3)) glucosamine-chondroitin 250 mg-200 1 tab PO BID 08/05/18 04/08/23 History mg tablet (Osteo Bi-Flex) multivitamin 1 tab PO QDD 08/05/18 04/08/23 History diphenhydramine HCl 25 mg capsule 25 mg PO Q6H PRN ALLERGIES 04/02/19 04/08/23 History hyoscyamine sulfate 0.125 mg 0.125 mg PO Q4H PRN IRRITABLE BOWEL 04/02/19 History tablet (Levsin) aspirin 81 mg tablet,delayed 81 mg PO HS 05/18/20 04/08/23 History release amlodipine 5 mg tablet 5 mg PO QAM 02/14/23 04/08/23 History famotidine 20 mg tablet 20 mg PO QAM 02/14/23 04/08/23 History levothyroxine 125 mcg tablet 125 mcg PO QAM 02/14/23 04/08/23 History lisinopril 40 mg tablet 40 mg PO QAM 02/14/23 04/08/23 History tramadol 50 mg tablet 50 mg PO Q6H PRN pain #30 tabs 03/24/23 04/08/23 Rx Past Med/Surg History Medical History Nausea and vomiting after administration of anesthetic agent GERD (gastroesophageal reflux disease) well controlled and stable Hx of diverticulitis of colon No recent issues Hx of deep venous thrombosis post-op left knee surgery (2006) - on blood thinners x months - no issues since that time- no issues with subsequent surgeries HX: breast cancer right s/p lumpectomy/XRT (2009) no arm restriction per patient IBS (irritable bowel syndrome) Hypothyroidism Hypertension Hyperlipidemia Surgical History S/P left inguinal hernia repair (05/19/20) Left Open Inguinal Hernia Repair with Mesh Dr. Parker 05/19/2020 History of right hip replacement (~06/2019) History of ERCP 08/30/18: MAC sedation at [facility] Hx of colonoscopy History of total abdominal hysterectomy and bilateral salpingo-oophorectomy Hx of lumpectomy RIGHT BREAST Hx of shoulder replacement LEFT History of total knee replacement LEFT/RIGHT History of esophagogastroduodenoscopy (EGD) History of herniorrhaphy History of cholecystectomy History of tooth extraction Family History Other FHx: cancer No family history of adverse response to anesthesia Social History Smoking Status: Former smoker Tobacco Type: Cigarettes Second Hand Exposure: Yes (hx); Do You Dip or Chew Tobacco: No; Hx Alcohol Use: No Hx Substance Use: No Preferred Language: Tajik Communication Ability: Effective Supervising Fire Marshal Required: No Beliefs That Will Affect Care: None marital status: Current Living Situation: Spouse Other Information That Helps Us Care for You: No Feels Safe at Home: Yes Safety Concerns: Feels Safe At This Time Assistive Devices: Denture - Upper and Glasses Assistive Devices Comment: denture - upper partial Review of Systems All systems reviewed & are unremarkable except as noted in HPI & below. Physical Exam Patient is alert and oriented x4. Sitting comfortably in bed. Left left is slightly externally rotated and shortened. Pain in left hip with log roll. Neurovascularly intact Results & Data Results & Data Laboratory Results . Diagnostic Findings . PG Care Time/CCT Total # of Minutes Spent Total Time Spent with Patient: Total time spent is greater than 50% in coordination of care (as documented) at patient's floor/unit and/or counseling patient: Coding Level of Care Code 31052 IN/OBS CONSULT LVL 3,45M Diagnoses Closed intertrochanteric fracture of left hip S72.142A Encounter type: initial encounter Fracture alignment: displaced (1) Closed intertrochanteric fracture of left hip Encounter type: initial encounter Fracture alignment: displaced Qualified Code(s): S72.142A - Displaced intertrochanteric fracture of left femur, initial encounter for closed fracture
--- NOTE | 2023-04-09 12:47 | History & Physical Bridge Note ---
Date of Service April 09, 2023 History & Physical Bridge Note I have examined the patient, reviewed the History & Physical and in the interval since the performance of the History & Physical I have noted the following changes of clinical significance: no changes noted
--- NOTE | 2023-04-09 13:00 | Electrocardiogram Report ---
Test Reason : Blood Pressure : / mmHG Vent. Rate : 065 BPM Atrial Rate : 065 BPM P-R Int : 168 ms QRS Dur : 084 ms QT Int : 418 ms P-R-T Axes : 067 -37 081 degrees QTc Int : 434 ms Poor data quality, interpretation may be adversely affected Normal sinus rhythm Left axis deviation Nonspecific ST and T wave abnormality Abnormal ECG When compared with ECG of 21-FEB-2023 13:23, No significant change was found Confirmed by Jaden Mitchell ([id number]) on 04/09/2023 1:00:35 PM Referred By: NO PCP Confirmed By:Jaden Mitchell
[2023-04-09] MEDS ORDERED: ceFAZolin 2000MG 2,000 MG/15 ML SYR IV ONE (13:06)
--- NOTE | 2023-04-09 13:15 | Anesthesiology Consultation ---
Date of Service April 09, 2023 Assessment & Plan (1) Encounter for pre-operative examination: Chart Review Chart Review: Acceptable Risk for Surgery History Surgery Operation Date: 04/09/23 08:50 Proposed Procedures p Left IM Nail - Elliott Forbes, Height/Weight Height: 5 ft 4 in Weight: 79.3 kg Allergies Allergy/AdvReac Type Severity Reaction Status Date / Time adhesive Allergy Intermediate bandaids- Verified 04/09/23 13:01 redness, pruritus Penicillins Allergy Intermediate rash, Verified 04/09/23 13:01 mouth sores Medications Home Medications Medication Instructions Recorded Confirmed Last Taken atenolol 50 mg tablet 50 mg PO QAM 08/05/18 04/08/23 03/23/23 08:00 calcium carbonate 600 mg-vitamin 1 cap PO QAM 08/05/18 04/08/23 03/22/23 08:00 D3 5 mcg (200 unit) capsule (Calcium 600 + D(3)) glucosamine-chondroitin 250 mg-200 1 tab PO BID 08/05/18 04/08/23 03/13/23 08:00 mg tablet (Osteo Bi-Flex) multivitamin 1 tab PO QDD 08/05/18 04/08/23 03/19/23 08:00 diphenhydramine HCl 25 mg capsule 25 mg PO Q6H PRN ALLERGIES 04/02/19 04/08/23 03/22/23 20:00 hyoscyamine sulfate 0.125 mg 0.125 mg PO Q4H PRN IRRITABLE BOWEL 04/02/19 04/08/23 03/22/23 14:00 tablet (Levsin) aspirin 81 mg tablet,delayed 81 mg PO HS 05/18/20 04/08/23 03/22/23 18:00 release amlodipine 5 mg tablet 5 mg PO QAM 02/14/23 04/08/23 03/23/23 08:00 famotidine 20 mg tablet 20 mg PO QAM 02/14/23 04/08/23 03/23/23 08:00 levothyroxine 125 mcg tablet 125 mcg PO QAM 02/14/23 04/08/23 03/23/23 08:00 lisinopril 40 mg tablet 40 mg PO QAM 02/14/23 04/08/23 03/22/23 08:00 tramadol 50 mg tablet 50 mg PO Q6H PRN pain #30 tabs 03/24/23 04/08/23 Unknown Active Medications Generic Name Dose Route Start Last Admin Trade Name Cosmeq PRN Reason Stop Dose Admin Acetaminophen 650 mg 04/08/23 21:52 04/09/23 07:22 Acetaminophen 325 Mg Tab PO 05/08/23 21:51 650 mg QID PRN Administration pain/fever Atenolol 25 mg 04/09/23 09:00 04/09/23 10:09 Atenolol 25 Mg Tablet PO 05/09/23 08:59 Not Given QAM BELKIS Calcium/Vitamin D 1 tab 04/09/23 09:00 04/09/23 08:18 Calcium 600mg + Vit D 400 Iu Tab PO 05/09/23 08:59 1 tab QAM BELKIS Administration Famotidine 20 mg 04/09/23 09:00 04/09/23 08:17 Famotidine 20 Mg Tab PO 05/09/23 08:59 20 mg QAM BELKIS Administration Sodium Chloride 1,000 mls @ 80 mls/hr 04/09/23 03:00 04/09/23 03:25 Nss IV 05/09/23 02:59 80 mls/hr .[id number] BELKIS Administration Levothyroxine Sodium 125 mcg 04/09/23 06:30 04/09/23 05:48 Levothyroxine Sodium 125 Mcg Tablet PO 05/09/23 06:29 125 mcg DAILYBB BELKIS Administration Morphine Sulfate 2 mg 04/08/23 21:52 04/09/23 00:25 Morphine Sulfate 2 Mg/Ml Carp IV 04/22/23 21:51 2 mg Q3H PRN Administration Pain NPO Date Last Intake of Fluids: 04/09/23 Time Last Intake of Fluids: 08:15 Last Intake of Fluids Comment: sips only water with meds Date Last Intake of Solids: 04/08/23 Time Last Intake of Solids: 12:00 Past Medical History Medical History (Updated 04/09/23 @ 13:13 by Gael Colon MD) Anemia Nausea and vomiting after administration of anesthetic agent GERD (gastroesophageal reflux disease) well controlled and stable Hx of diverticulitis of colon No recent issues Hx of deep venous thrombosis post-op left knee surgery (2006) - on blood thinners x months - no issues since that time- no issues with subsequent surgeries HX: breast cancer right s/p lumpectomy/XRT (2009) no arm restriction per patient IBS (irritable bowel syndrome) Hypothyroidism Hypertension Hyperlipidemia Past Family History Family History Other FHx: cancer No family history of adverse response to anesthesia Past Surgical History Surgical History S/P left inguinal hernia repair (05/19/20) Left Open Inguinal Hernia Repair with Mesh Dr. Parker 05/19/2020 History of right hip replacement (~06/2019) History of ERCP 08/30/18: MAC sedation at [facility] Hx of colonoscopy History of total abdominal hysterectomy and bilateral salpingo-oophorectomy Hx of lumpectomy RIGHT BREAST Hx of shoulder replacement LEFT History of total knee replacement LEFT/RIGHT History of esophagogastroduodenoscopy (EGD) History of herniorrhaphy History of cholecystectomy History of tooth extraction Social History Smoking Status: Former smoker tobacco type: cigarettes Do You Dip or Chew Tobacco: No Hx Alcohol Use: No Hx Substance Use: No substance use type: does not use Physical Exam Vital Signs Last Vital Signs Temp 37.2 C 04/09/23 13:08 Pulse 86 04/09/23 13:08 Resp 18 04/09/23 13:08 BP 139/64 04/09/23 13:08 Pulse Ox 95 04/09/23 13:08 O2 Del Method Room Air 04/09/23 13:08 Testing Laboratory Results 04/09/23 07:09 04/09/23 07:09 PT 10.7 Seconds (9.0-12.0) 04/08/23 19:12 INR 1.0 (0.9-1.1) 04/08/23 19:12 APTT 26.3 Seconds (21.0-31.0) 04/08/23 19:12 Hemoglobin A1c 5.8 % (4.5-5.6) H 04/08/23 19:12 Urine Color Yellow 04/08/23 19:30 Urine Appearance Clear (Clear) 04/08/23 19:30 Urine pH 5.0 (4.5-7.5) 04/08/23 19:30 Ur Specific [place] 1.021 (1.000-1.030) 04/08/23 19:30 Urine Protein Negative (Negative) 04/08/23 19:30 Urine Glucose (UA) Negative (Negative) 04/08/23 19:30 Urine Ketones 2+ (Negative) H 04/08/23 19:30 Urine Nitrite Negative (Negative) 04/08/23 19:30 Ur Leukocyte Esterase Negative (Negative) 04/08/23 19:30 Urine WBC (Auto) 1-5 /hpf (0-5) 04/08/23 19:30 Urine RBC (Auto) 5-10 /hpf (0-4) H 04/08/23 19:30 U Hyaline Cast (Auto) 1-5 /lpf (0-5) 04/08/23 19:30 U Epithel Cells (Auto) 5-10 /lpf (0-5) H 04/08/23 19:30 Urine Bacteria (Auto) Negative (Negative) 04/08/23 19:30 Blood Type A Positive 04/08/23 23:55 Antibody Screen NEGATIVE 04/08/23 23:55 Electrocardiogram Date: 04/08/23 Findings: + NSR @ (65), + NSST changes and + no change from (02/21/23)
[2023-04-09] MEDS ORDERED: MIDAZOLAM HCL 1 MG/ML 2ML VIAL ONE (13:46)
[2023-04-09] MEDS ORDERED: fentaNYL citrate PF 100 MCG/2 ML VIAL ONE ×2 (13:46→15:50)
[2023-04-09] MEDS ORDERED: PROPOFOL IV EMULSION 10 MG/ML 20 ML VIAL IV ONE ×2 (14:11)
[2023-04-09] MEDS ORDERED: ePHEDrine sulfate 50 MG/5 ML SYR ONE (14:59)
--- NOTE | 2023-04-09 15:12 | Hospitalist Progress Note ---
Date of Service April 09, 2023 Assessment & Plan (1) Hip fracture: Plan: Left hip fracture left distal radial fracture Secondary to fall --Hip X ray:Comminuted and displaced intertrochanteric fracture within the proximal left femur. --Left Wrist:Comminuted intra-articular distal radial fracture. Degenerative changes are seen without definite carpal or metacarpal fractures. Plan for open reduction internal fixation of left hip by Dr. Forbes today Pain control Fall precautions Bowel regimen to prevent constipation Monitor for postop anemia Appreciate orthopedics input PT OT evaluation as able Hyponatremia Likely due to hypovolemia/dehydration Sodium levels improved to 134 after IV fluids Monitor sodium levels Normocytic anemia Normal vitamin B12, folate levels Serum iron slightly low Denies any bleeding issues Monitor H&H and transfuse PRBCs as needed Recent right shoulder surgery Continue sling Needs follow-up with orthopedics upon discharge Hypertension BP better after IV fluids Hold Amlodipine Continue atenolol with holding parameters Monitor BP Hypothyroidism Continue levothyroxine H/O Post Operative PE As per records Right breast cancer S/P surgery/radiation/Anastrozole Rx Prediabetes HbA1C 5.8 Past tobacco abuse As per records DVT Px: SCDs RE hip surgery Start anticoagulation once cleared by surgery Code Status Full code Admission and Anticipated Discharge Date Admission Date: April 08, 2023 Subjective Patient is seen and examined at bedside Left hip pain is controlled Denies any significant left upper extremity pain Also denies any chest pain, dyspnea, dizziness, nausea, vomiting, abdominal pain Plan for left hip surgery today Review of Systems Review of Systems: All systems reviewed & are unremarkable except as noted in Subjective Physical Exam Physical Exam: Physical Exam: Vitals signs as noted above General Appearance:Obese, no apparent distress Head: normocephalic, Atraumatic Eyes: normal inspection, EOMI Neck: supple, Trachea midline Respiratory/Chest: Normal breath sounds, CTA, No accessory muscle use Cardiovascular: S1, S2, No murmur Abdomen/GI:Soft, Non tender, Bowel sounds present Extremities/Musculoskeletal:normal inspection, left lower extremity shortened and internally rotated, left upper extremity splint Neurologic/Psych:AAOX3, grossly no focal neurological deficits Skin: normal color, warm Results & Data Results & Data Vital Signs (Past 12 Hours) Vital Signs Temp Pulse Resp BP Pulse Ox O2 Del Method 04/09/23 13:08 37.2 C 86 18 139/64 95 Room Air 04/09/23 08:15 34.9 C L 75 16 123/72 96 Room Air 04/09/23 08:00 Room Air 04/09/23 04:07 67 16 101/65 98 Room Air 04/09/23 03:26 69 16 115/68 99 Room Air Laboratory Results Short CBC 04/08/23 04/09/23 04/09/23 Range/Units 19:12 00:22 07:09 WBC 11.11 H 6.61 (4.8-10.8) K/ul Hgb 10.8 L 9.8 L 9.4 L (12.0-16.0) g/dl Hct 32.6 L 29.2 L 28.4 L (37.0-47.0) % Plt Count 296 273 (130-400) K/uL BMP 04/08/23 04/09/23 04/09/23 19:12 00:22 07:09 Sodium 132 L 132 L 134 L Potassium 4.1 3.8 Chloride 101 104 Carbon Dioxide 22 23 BUN 23 15 Creatinine 0.96 0.50 L D Glucose 118 H 103 H Calcium 9.1 8.5 L Liver Function 04/08/23 Range/Units 19:12 Total Bilirubin 0.8 (0.2-1.0) mg/dl AST 21 (13-39) U/L ALT 16 (7-52) U/L Alkaline Phosphatase 82 (34-104) U/L Albumin 3.7 (3.4-5.0) gm/dl Urine 04/08/23 Range/Units 19:30 Urine Color Yellow Urine Appearance Clear (Clear) Urine pH 5.0 (4.5-7.5) Ur Specific [place] 1.021 (1.000-1.030) Urine Protein Negative (Negative) Urine Glucose (UA) Negative (Negative)
--- NOTE | 2023-04-09 15:26 | Anesthesiology Progress Note ---
Date of Service April 09, 2023 Anesthesia Post Procedure Vital Signs Vital Signs: Temp Pulse Pulse Pulse Resp BP BP 04/09/23 13:08 37.2 C 86 18 139/64 04/09/23 08:15 34.9 C L 75 16 123/72 04/09/23 08:00 04/09/23 04:07 67 16 101/65 04/09/23 03:26 69 16 115/68 04/09/23 01:48 70 16 92/59 L 04/09/23 00:40 04/09/23 00:40 36.5 C 66 16 106/63 04/09/23 00:11 66 20 127/69 04/08/23 22:24 66 20 112/55 L 04/08/23 22:14 67 04/08/23 21:22 68 20 110/54 L 04/08/23 20:15 66 20 143/70 H 04/08/23 19:14 64 20 138/67 04/08/23 18:14 63 04/08/23 18:09 37 C 63 20 138/67 Pulse Ox O2 Del Method 04/09/23 13:08 95 Room Air 04/09/23 08:15 96 Room Air 04/09/23 08:00 Room Air 04/09/23 04:07 98 Room Air 04/09/23 03:26 99 Room Air 04/09/23 01:48 95 Room Air 04/09/23 00:40 Room Air 04/09/23 00:40 94 Room Air 04/09/23 00:11 97 Room Air 04/08/23 22:24 96 Room Air 04/08/23 22:14 04/08/23 21:22 95 Room Air 04/08/23 20:15 98 04/08/23 19:14 97 Room Air 04/08/23 18:14 04/08/23 18:09 97 Room Air Pain Intensity Left Hip: Pain Intensity: 6 Left Shoulder: Pain Intensity: 5 Transfer of Care Handoff Completed per policy Notes Mental Status: alert / awake / arousable Patient Amnestic to Procedure: Yes Nausea / Vomiting: adequately controlled Pain: adequately controlled Airway Patency, RR, SpO2: stable & adequate BP & HR: stable & adequate Hydration State: stable & adequate Neuraxial Anesthesia: was administered and sensory block is resolving Anesthetic Complications: no major complications apparent and Pt Satisfied with anesthetic care
[2023-04-09] MEDS ORDERED: ePHEDrine sulfate 50 MG/ML AMP IV PRN (15:46)
[2023-04-09] MEDS ORDERED: ONDANSETRON INJ 2 MG/ML 2 ML VIAL IV PRN (15:46)
[2023-04-09] MEDS ORDERED: ATROPINE SULFATE 0.1 MG/ML 10ML SYR IV PRN (15:46)
[2023-04-09] MEDS: fentaNYL citrate PF 100 MCG/2 ML VIAL IV PRN ×2 (15:54→16:00)
--- NOTE | 2023-04-09 16:02 | Fluoroscopy Report ---
INTRAOPERATIVE RADIOGRAPHS CLINICAL HISTORY: Open reduction and internal fixation of the left proximal femur. Fluoro time: 105 seconds Ka,r: 24.75 mGy FINDINGS: 6 spot fluoroscopic views of the left femur are correlated with radiographs dated 04/08/2023 . Intertrochanteric and intramedullary nails have been placed transfixing an intertrochanteric/subtro chanteric fracture of the left proximal femur. Near-anatomic alignment is restored, with mild persist ent offset of the largest fragments. A single cortical lag screw transfixes the distal end of the int ramedullary nail. A left knee arthroplasty is in place. IMPRESSION: Intraoperative images from open reduction and internal fixation of the left proximal femu r as above. Electronically signed by: Fred Eden M.D. 04/09/2023 4:01 PM
--- NOTE | 2023-04-09 17:49 | XRay Report ---
LEFT FEMUR 2 VIEWS CLINICAL HISTORY: Postoperative examination. FINDINGS: AP and crosstable lateral portable views of the left femur are compared to study dated 04/08. The skeletal structures are osteopenic. There has been intertrochanteric and intramedullary na il fixation of a comminuted intertrochanteric/subtrochanteric fracture of the left proximal femur wit h pentecostalism of near-anatomic alignment. There is mild persistent offset of the largest fragments. T he orthopedic hardware appears intact. A single cortical lag screw transfixes the distal end of the i ntramedullary nail. No new fracture is seen. The visualized left hemipelvis appears intact. Skin clip s, soft tissue swelling, and subcutaneous gas overlying the left femur are expected postsurgical koch ges. A left knee arthroplasty is in place. IMPRESSION: Expected postsurgical findings status post intertrochanteric and intramedullary nail fixa tion of a left proximal femoral fracture as above. Electronically signed by: Fred Eden M.D. 04/09/2023 5:48 PM
[2023-04-09] MEDS: MULTIVITAMIN TAB PO SCH (17:58)
[2023-04-09] MEDS: ceFAZolin 2000MG 2,000 MG/15 ML SYR IV SCH (20:15)
[2023-04-09] MEDS ORDERED: ASPIRIN 81 MG ECTAB PO SCH (21:00)
[2023-04-10] MEDS ORDERED: NSS + 20MEQ KCL 20 MEQ/1,000 ML BAG IV ONE ×2 (00:23→06:00)
[2023-04-10] MEDS ORDERED: MAGNESIUM SULFATE / D5W 1 GM/100 ML BAG IV ONE (00:24)
[2023-04-10] MEDS: oxyCODONE HCL IR 5 MG TAB (IMMEDIATE RELEASE) PO PRN ×3 (00:41→21:39)
[2023-04-10 01:23] LABS: Basophils # (auto) 0.03 K/uL (0.00-0.20); Basophils % (auto) 0.4 %; Eosinophils # (auto) 0.17 K/uL (0.00-0.50); Eosinophils % (auto) 2.3 %; Hematocrit (blood only) 24.6 % (37.0-47.0); Immature Granulocytes # (auto) 0.03 K/uL (0.01-0.20); Immature Granulocytes % (auto) 0.4 %; Lymphocytes # (auto) 0.82 K/uL (1.20-3.40); Lymphocytes % (auto) 11.3 %; Mean Corpuscular Hemoglobin 31.1 pg (25.0-34.0); Mean Corpuscular Hgb Conc 32.5 g/dL (32.0-36.0); Mean Corpuscular Volume 95.7 fL (80.0-100.0); Mean Platelet Volume 10.2 fL (9.4-12.4); Monocytes # (auto) 0.91 K/uL (0.11-0.59); Monocytes % (auto) 12.5 %; Neutrophils # (auto) 5.31 K/uL (1.40-6.50); Neutrophils % (auto) 73.1 %; Platelet Count 239 K/uL (130-400); RDW Coefficient of Variation 14.6 % (11.5-14.5); RDW Standard Deviation 50.7 fL (36.4-46.3); Red Blood Count 2.57 M/uL (4.20-5.40); White Blood Count 7.27 K/ul (4.8-10.8)
[2023-04-10 01:30] LABS: BUN Creatinine Ratio 23.3 (10-20); Calcium 8.4 mg/dl (8.6-10.3); Creatinine Clr Calc Pharmacy 76.2 ml/min; Est GFR (African American) 99.8 ml/min; Est GFR (Non-African American) 86.1 ml/min; Magnesium 1.8 mg/dl (1.7-2.4); Potassium 4.1 mmol/L (3.5-5.1)
[2023-04-10 01:40] LABS: Partial Thromboplastin Ratio 0.9; Partial Thromboplastin Time 25.6 Seconds (21.0-31.0)
[2023-04-10] MEDS: ceFAZolin 2000MG 2,000 MG/15 ML SYR IV SCH (04:30)
[2023-04-10] MEDS: LEVOTHYROXINE SODIUM 125 MCG TABLET PO SCH (05:47)
--- NOTE | 2023-04-10 07:07 | Orthopedic Progress Note ---
Date of Service April 10, 2023 Assessment & Plan (1) Closed intertrochanteric fracture of left hip: Overall she is doing okay. She is having some soreness in the hip but is not too bad. She can be weightbearing as tolerated. She can be seen by physical therapy today. With regards to her left wrist, it is nonoperative. She cannot put full weight on it yet. With regards to her right shoulder, the nickolas were removed and she needs to be in the sling for another week. She should be up to a chair at bedside today. She can be putting weight on the left leg with assistance from therapy and the nursing staff, however, it is gone to be difficult to use a walker without being able to put weight on either her left wrist or her right shoulder. She is on Eliquis 2.5 mg twice a day for DVT prophylaxis. We will see how she does today with therapy. Britney Bowden was seen and examined at bedside this morning. Overall she is doing okay. She is having a little bit of soreness in her hip. She was able to get a little bit of sleep last night. She has not been out of bed yet. She has no complaints.. Review of Systems All systems reviewed & are unremarkable except as noted in HPI & below. Physical Exam On physical examination of the left hip, the dressings are clean and dry. Her leg is out full extension. She has active dorsiflexion plantarflexion of her left ankle.. Results & Data Results & Data Laboratory Results . Diagnostic Findings Postoperative x-rays of the left hip show the fracture and hip to be in good alignment. The proximal fracture is a little bit comminuted.. PG Care Time/CCT Total # of Minutes Spent Total Time Spent with Patient: Total time spent is greater than 50% in coordination of care (as documented) at patient's floor/unit and/or counseling patient: Coding Level of Care Code 23256 Post Operative Follow-Up Diagnoses Closed intertrochanteric fracture of left hip S72.142A Encounter type: initial encounter Fracture alignment: displaced (1) Closed intertrochanteric fracture of left hip Encounter type: initial encounter Fracture alignment: displaced Qualified Code(s): S72.142A - Displaced intertrochanteric fracture of left femur, initial encounter for closed fracture
[2023-04-10] MEDS: CALCIUM 600MG + VIT D 400 IU TAB PO SCH (08:05)
[2023-04-10] MEDS: FAMOTIDINE 20 MG TAB PO SCH (08:06)
[2023-04-10] MEDS ORDERED: APIXABAN 2.5 MG TAB PO SCH (09:00)
[2023-04-10] MEDS ORDERED: lisinopril 40 MG TAB PO SCH (09:00)
[2023-04-10 09:01] LABS: Hematocrit (blood only) 22.1 % (37.0-47.0); Hemoglobin 7.3 g/dl (12.0-16.0)
[2023-04-10] MEDS ORDERED: SODIUM CHLORIDE 0.9% 250 ML IV PRN (09:01)
[2023-04-10] MEDS: METOPROLOL TARTRATE 50 MG TAB PO SCH ×2 (11:12→22:33)
--- NOTE | 2023-04-10 11:15 | Hospitalist Progress Note ---
Date of Service April 10, 2023 Assessment & Plan (1) Hip fracture: Plan: Left hip fracture left distal radial fracture Secondary to fall --Hip X ray:Comminuted and displaced intertrochanteric fracture within the proximal left femur. --Left Wrist:Comminuted intra-articular distal radial fracture. Degenerative changes are seen without definite carpal or metacarpal fractures. Plan for open reduction internal fixation of left hip by Dr. Forbes today Pain control Fall precautions Bowel regimen to prevent constipation Monitor for postop anemia Appreciate orthopedics input PT OT evaluation as able Hyponatremia Likely due to hypovolemia/dehydration Sodium levels improved with IVF, 132 today Monitor sodium levels Normocytic anemia acute blood loss anemia as a result of multiple recent surgical procedures, R shoulder, L hip Normal vitamin B12, folate levels Serum iron slightly low Denies any bleeding issues hgb 7.3 this morning, pt with evidence of tachycardia and lower blood pressures Will transfuse 1 unit PRBC and reevaluate Possible need for additional unit Blood consent was obtained from the patient (or patient delegate) as delegated by Dr. Caldwell. Risks and benefits were explained. All questions were answered, and the patient (or patient delegate) was offered the opportunity to discuss with attending physician and declined. Sinus tachycardia Likely in setting of volume depletion 1 unit PRBC ordered for today will re assess post transfusion hold atenolol and place on metoprolol tartrate 50mg bid Recent right shoulder surgery Continue sling Needs follow-up with orthopedics upon discharge Hypertension BP on lower side Hold Amlodipine and lisinopril Atenolol on hold in favor of metoprolol tartrate Monitor BP Hypothyroidism Continue levothyroxine H/O Post Operative PE As per records Right breast cancer S/P surgery/radiation/Anastrozole Rx Prediabetes HbA1C 5.8 Past tobacco abuse As per records DVT Px: SCDs RE hip surgery Eliquis resumed this a.m.; however given anemia will continue to hold while transfusing, place on SQ heparin for now Code Status Full code Pt was seen and examined in collaboration with Dr. Caldwell, please see addendum Admission and Anticipated Discharge Date Admission Date: April 08, 2023 Supervising Physician Co-Signing Physician Notes Patient is seen and examined at bedside. Denies any significant left hip pain at surgical site unless with activity. Noted to be tachycardic with low BP this morning which improved after blood transfusion. Patient offers no other complaints. On exam patient is obese, no apparent distress, normocephalic atr aumatic, EOMI, normal breath sounds, clear to auscultation, S1-S2, no murmur, abdomen soft, nontender, left hip surgical site in dressing, alert, awake, oriented, grossly no focal deficits. Patient is being managed for left hip fracture S/P open reduction internal fixation by Dr. Forbes. Postoperative acute blood loss anemia. S/P 1 unit PRBC. Monitor hyponatremia. Agree with changing atenolol to metoprolol. Hold amlodipine, lisinopril until blood pressure improves. Monitor CBC. Bowel regimen to prevent constipation. I personally reviewed the record. Patient is interviewed and examined at bedside. Patient's care is coordinated with Paula Davidson PA-C. Please refer to the documentation above for details of patient's presentation and for discussion of other issues. Subjective Patient was seen and examined in room 316. Follow-up left hip fracture along with left distal radial fracture. She has a significant amount of pain to left wrist and left hip specifically with movement. Currently at rest is a 5 out of 10 and hip is a 7 out of 10. She does receive analgesia. Nurse concerned due to tachycardia since surgical procedure yesterday. Also her blood pressures have been running on the lower side. Overall patient has poor appetite. She denies any fever, chills, sweats, lightheadedness, dizziness, chest pain, shortness breath, cough, nausea, vomiting or abdominal pain. She currently has Jeffers catheter in place. Review of Systems Review of Systems: All systems reviewed & are unremarkable except as noted in HPI & below Physical Exam Physical Exam: Gen: WD/WN, NAD, A&O x3 HEENT: Normocephalic, atraumatic, conjunctivae moist, sclerae anicteric, mucous membranes moist. Lung: Clear to Auscultation bilaterally, no wheezes/rales/rhonchi Heart: Regular rate, regular rhythm, no murmurs, rubs, or gallops Abdomen: Soft, NT, ND +BS x 4 Extremities: No edema, LLE Dressing CDI, L wrist splinted, R shoulder with incision well healed Skin: Warm, no rash, negative turgor. Results & Data Results & Data Vital Signs (Past 12 Hours) Vital Signs Temp Pulse Pulse Resp BP BP Pulse Ox 04/10/23 10:46 37.3 C 136 H 18 125/79 96 04/10/23 10:16 37 C 116 H 18 129/79 96 04/10/23 10:01 37 C 149 H 18 121/76 94 04/10/23 09:39 36.9 C 152 H 18 122/74 96 04/10/23 08:42 37.1 C 115 H 16 108/71 94 04/10/23 08:09 112 H 20 107/69 94 04/10/23 07:47 04/10/23 03:00 36.5 C 109 H 16 110/72 95 04/10/23 01:40 107 H 16 95/61 L 94 04/10/23 00:12 36.5 C 121 H 16 98/66 L 98 O2 Del Method 04/10/23 10:46 04/10/23 10:16 04/10/23 10:01 04/10/23 09:39 04/10/23 08:42 Room Air 04/10/23 08:09 Room Air 04/10/23 07:47 Room Air 04/10/23 03:00 Room Air 04/10/23 01:40 Room Air 04/10/23 00:12 Room Air Laboratory Results Short CBC 04/10/23 04/10/23 Range/Units 00:47 08:34 WBC 7.27 (4.8-10.8) K/ul Hgb 8.0 L 7.3 L (12.0-16.0) g/dl Hct 24.6 L 22.1 L (37.0-47.0) % Plt Count 239 (130-400) K/uL BMP 04/10/23 00:47 Sodium 132 L Potassium 4.1 Chloride 105 Carbon Dioxide 21 BUN 14 Creatinine 0.60 Glucose 138 H Calcium 8.4 L Medications Administered Current Inpatient Medications Acetaminophen (Acetaminophen 325 Mg Tab) 650 mg PO QID PRN PRN Reason: pain/fever Stop: 05/08/23 21:51 Last Admin: 04/09/23 07:22 Dose: 650 mg Apixaban (Apixaban 2.5 Mg Tab) 2.5 mg PO BID BELKIS Stop: 05/10/23 08:59 Last Admin: 04/10/23 09:45 Dose: Not Given Bisacodyl (Bisacodyl 10 Mg Supp) 10 mg HI DAILY PRN PRN Reason: Constipation Stop: 05/09/23 00:43 Calcium/Vitamin D (Calcium 600mg + Vit D 400 Iu Tab) [facility] [place] Stop: 05/09/23 08:59 Last Admin: 04/10/23 08:05 Dose: 1 tab Famotidine (Famotidine 20 Mg Tab) 20 mg PO QAM [facility] Stop: 05/09/23 08:59 Last Admin: 04/10/23 08:06 Dose: 20 mg Promethazine HCl 6.25 mg/ (Sodium Chloride) 50.25 mls @ 201 mls/hr IV Q6H PRN PRN Reason: Nausea And Vomiting Stop: 05/08/23 21:51 Potassium Chloride/Sodium Chloride (Normal Saline W/20 Meq Kcl) 20 meq in 1,000 mls @ 80 mls/hr IV .[id number]; Protocol Stop: 04/10/23 18:29 Last Admin: 04/10/23 06:03 Dose: 80 mls/hr Sodium Chloride (Nss) 250 mls @ 15 mls/hr IV .[id number] PRN PRN Reason: For Transfusion Duration Stop: 04/10/23 19:01 Levothyroxine Sodium (Levothyroxine Sodium 125 Mcg Tablet) 125 mcg PO DAILYBB [facility] Stop: 05/09/23 06:29 Last Admin: 04/10/23 05:47 Dose: 125 mcg Metoprolol Tartrate (Metoprolol Tartrate 50 Mg Tab) 50 mg PO BID [facility] Stop: 05/10/23 08:59 Last Admin: 04/10/23 11:12 Dose: 50 mg Morphine Sulfate (Morphine Sulfate 2 Mg/Ml Carp) 2 mg IV Q3H PRN PRN Reason: Pain Stop: 04/22/23 21:51 Last Admin: 04/09/23 18:14 Dose: 2 mg Multivitamins (Multivitamin Tab) 1 tab PO QDD [facility] Stop: 05/09/23 16:29 Last Admin: 04/09/23 17:58 Dose: 1 tab Naloxone HCl (Naloxone Hcl 0.4 Mg/1 Ml Vial/Carp) 0.1 mg IV UD PRN PRN Reason: Opiate Overdose Stop: 05/09/23 00:43 Oxycodone HCl (Oxycodone Hcl Ir 5 Mg Tab (Immediate Release)) 5 - 10 mg PO QID PRN PRN Reason: Pain Stop: 04/22/23 21:51 Last Admin: 04/10/23 08:03 Dose: 10 mg Polyethylene Glycol (Polyethylene (Miralax) 17 Gm Pack) 17 gm PO DAILY PRN PRN Reason: Constipation Stop: 05/09/23 08:59
[2023-04-10] MEDS: ACETAMINOPHEN 325 MG TAB PO PRN (12:51)
--- NOTE | 2023-04-10 13:44 | Electrocardiogram Report ---
Test Reason : Blood Pressure : / mmHG Vent. Rate : 118 BPM Atrial Rate : 118 BPM P-R Int : 168 ms QRS Dur : 080 ms QT Int : 326 ms P-R-T Axes : 072 -47 074 degrees QTc Int : 456 ms Sinus tachycardia Left anterior fascicular block Abnormal ECG When compared with ECG of 08-APR-2023 19:08, Vent. rate has increased BY 53 BPM Non-specific change in ST segment in Anterior leads Confirmed by Jaden Mitchlel ([id number]) on 04/10/2023 1:44:04 PM Referred By: NO PCP Confirmed By:Jaden Mitchell
[2023-04-10] MEDS ORDERED: SODIUM CHLORIDE 0.9% 1,000 ML IV SCH (14:30)
[2023-04-10 15:41] LABS: Hematocrit (blood only) 25.1 % (37.0-47.0); Hemoglobin 8.4 g/dl (12.0-16.0)
[2023-04-10] MEDS: MoRPHine SULFATE 2 MG/ML CARP IV PRN (15:58)
[2023-04-10] MEDS: MULTIVITAMIN TAB PO SCH (16:03)
[2023-04-10] MEDS: HEPARIN SOD 5,000 UNIT/0.5 ML VIAL SQ SCH (22:34)
[2023-04-11] MEDS: MoRPHine SULFATE 2 MG/ML CARP IV PRN ×3 (05:02→21:19)
[2023-04-11] MEDS: LEVOTHYROXINE SODIUM 125 MCG TABLET PO SCH (06:14)
[2023-04-11] MEDS: HEPARIN SOD 5,000 UNIT/0.5 ML VIAL SQ SCH (06:14)
[2023-04-11 07:30] LABS: Hematocrit (blood only) 23.4 % (37.0-47.0); Mean Corpuscular Hgb Conc 34.2 g/dL (32.0-36.0); Mean Corpuscular Volume 90.7 fL (80.0-100.0); Mean Platelet Volume 10.5 fL (9.4-12.4); Platelet Count 206 K/uL (130-400); RDW Coefficient of Variation 14.4 % (11.5-14.5); RDW Standard Deviation 47.3 fL (36.4-46.3); Red Blood Count 2.58 M/uL (4.20-5.40); White Blood Count 7.97 K/ul (4.8-10.8)
[2023-04-11 08:23] LABS: Calcium 7.9 mg/dl (8.6-10.3); Potassium 3.8 mmol/L (3.5-5.1)
[2023-04-11 08:29] LABS: BUN Creatinine Ratio 21.1 (10-20); Creatinine Clr Calc Pharmacy 120.3 ml/min
[2023-04-11] MEDS: FAMOTIDINE 20 MG TAB PO SCH (08:40)
[2023-04-11] MEDS: CALCIUM 600MG + VIT D 400 IU TAB PO SCH (08:40)
[2023-04-11] MEDS: METOPROLOL TARTRATE 50 MG TAB PO SCH ×2 (08:41→21:12)
--- NOTE | 2023-04-11 10:26 | Orthopedic Progress Note ---
Date of Service April 11, 2023 Assessment & Plan (1) Closed intertrochanteric fracture of left hip: Overall she is in good spirits is feeling quite well. She may continue being weightbearing as tolerated to left lower extremity. Physical therapy was held yesterday due to a low H&H. Hemoglobin today is trending upwards but still low at 8.0. Improved from 7.3 yesterday with 2 units of blood. She is aware that she cannot put full weight on her left wrist and her right shoulder should remain in the sling for another week. This may make physical therapy a little bit difficult for her. Hopefully today we can get her to bedside in a chair. She is currently on Eliquis 2.5 mg twice a day for DVT prophylaxis. We will see how physical therapy goes today. Subjective . Patient was seen at bedside today in good spirits. Overall she is doing quite well postoperatively. She does note that she has a little bit of soreness to the left hip still but is much improved since surgery. She notes that she has yet to work with physical therapy due to her having a low H&H yesterday. She was transfused with 2 units and will attempt physical therapy again today. She denies any concerns with surgical incision site. She denies any active bleeding, discharge, or signs of infection. Review of Systems All systems reviewed & are unremarkable except as noted in HPI & below. Physical Exam . On physical exam of the left hip, dressings were clean, dry, and intact. No signs of active bleeding, discharge, or signs of infection. She does have full extension with her left leg but does have some discomfort with movement. Dorsiflexion plantarflexion intact. +2 DP and PT pulses. Less than 2-second capillary refill. Normal sensation. Neurovascular intact. Results & Data Results & Data Laboratory Results . Diagnostic Findings . PG Care Time/CCT Total # of Minutes Spent Total Time Spent with Patient: Total time spent is greater than 50% in coordination of care (as documented) at patient's floor/unit and/or counseling patient: Coding Level of Care Code 57992 Post Operative Follow-Up Diagnoses Closed intertrochanteric fracture of left hip S72.142A Encounter type: initial encounter Fracture alignment: displaced (1) Closed intertrochanteric fracture of left hip Encounter type: initial encounter Fracture alignment: displaced Qualified Code(s): S72.142A - Displaced intertrochanteric fracture of left femur, initial encounter for closed fracture
--- NOTE | 2023-04-11 14:31 | Hospitalist Progress Note ---
Date of Service April 11, 2023 Assessment & Plan (1) Hip fracture: Plan: Left hip fracture left distal radial fracture Secondary to fall --Hip X ray:Comminuted and displaced intertrochanteric fracture within the proximal left femur. --Left Wrist:Comminuted intra-articular distal radial fracture. Degenerative changes are seen without definite carpal or metacarpal fractures. Plan for open reduction internal fixation of left hip by Dr. Forbes today Pain control Fall precautions Bowel regimen to prevent constipation - give miralax x 1 today and add colace bid Monitor for postop anemia Appreciate orthopedics input PT OT evaluation as able Hyponatremia Likely due to hypovolemia/dehydration Sodium levels improved with IVF, 132 today Monitor sodium levels Normocytic anemia acute blood loss anemia as a result of multiple recent surgical procedures, R shoulder, L hip Normal vitamin B12, folate levels Serum iron slightly low Denies any bleeding issues hgb 7.3 04/10 with hemodynamic instability, pt with evidence of tachycardia and lower blood pressures and received 1 unit PRBC this has improved hgb today 8.0 repeat h/h this afternoon which remains stable, will recheck in a.m. will start Ferrous sulfate + vit C daily will resume eliquis, as long as remains stable she will be stable to d/c to rehab once Ok with ortho Sinus tachycardia Likely in setting of volume depletion improved after 1 unit prbc hold atenolol and place on metoprolol tartrate 50mg bid likely can continue atenolol at discharge as long as resolved Recent right shoulder surgery Continue sling Needs follow-up with orthopedics upon discharge Hypertension improving, 124/72 will continue to hold home meds, except beta blas Hold Amlodipine and lisinopril Atenolol on hold in favor of metoprolol tartrate Monitor BP Hypothyroidism Continue levothyroxine H/O Post Operative PE As per records Right breast cancer S/P surgery/radiation/Anastrozole Rx Prediabetes HbA1C 5.8 Past tobacco abuse As per records DVT Px: SCDs RE hip surgery hgb now stable, resume eliquis Dispo: pt medically stable for discharge as long as hemoglobin remains stable and ok from orthopedic stand point Code Status Full code Pt was seen and examined in collaboration with Dr. Caldwell, please see addendum Admission and Anticipated Discharge Date Admission Date: April 08, 2023 Supervising Physician Co-Signing Physician Notes Patient is seen and examined at bedside. Left hip pain at surgical site is controlled. + Flatus, no bowel movement today. BP stable today. Patient offers no other complaints. On exam patient is obese, no apparent distress, normocephalic atraumatic, EOMI, normal breath sounds, clear to auscultation, S1- S2, no murmur, abdomen soft, nontender, left hip surgical site in dressing, alert, awake, oriented, grossly no focal deficits. Patient is being managed for left hip fracture S/P open reduction internal fixation by Dr. Forbes. Postoperative acute blood loss anemia. S/P 1 unit PRBC. Hb 8.0 today. Monitor hyponatremia. Sodium 132 today. Continue metoprolol with holding parameters. Monitor blood pressure off amlodipine, lisinopril. Monitor CBC. continue bowel regimen to prevent constipation. Resume Eliquis. I personally reviewed the record. Patient is interviewed and examined at bedside. Patient's care is coordinated with Paula Davidson PA-C. Please refer to the documentation above for details of patient's presentation and for discussion of other issues. Subjective Patient was seen and examined in room 316. Follow-up left hip fracture along with left distal radial fracture. She feels improved today and is having less pain to left wrist and hip. Her appetite is slightly improved as well. She has not yet moved bowels. She denies lightheadedness, dizziness, chest pain, shortness breath, fever or chills. She feels improved after receiving 1 unit PRBC yesterday. Review of Systems Review of Systems: All systems reviewed & are unremarkable except as noted in HPI & below Physical Exam Physical Exam: Gen: WD/WN, NAD, A&O x3, improve color to patient today and affect HEENT: Normocephalic, atraumatic, conjunctivae moist, sclerae anicteric, mucous membranes moist. Lung: Clear to Auscultation bilaterally, no wheezes/rales/rhonchi Heart: Regular rate, regular rhythm, no murmurs, rubs, or gallops Abdomen: Soft, NT, ND +BS x 4 Extremities: No edema, LLE Dressing CDI, L wrist splinted, R shoulder with incision well healed Skin: Warm, no rash, negative turgor. Results & Data Results & Data Vital Signs (Past 12 Hours) Vital Signs Temp Pulse Resp BP Pulse Ox O2 Del Method 04/11/23 07:53 37.0 C 99 H 16 124/72 94 Room Air Laboratory Results Short CBC 04/10/23 04/11/23 Range/Units 15:18 06:50 WBC 7.97 (4.8-10.8) K/ul Hgb 8.4 L 8.0 L (12.0-16.0) g/dl Hct 25.1 L 23.4 L (37.0-47.0) % Plt Count 206 (130-400) K/uL BMP 04/11/23 06:50 Sodium 132 L Potassium 3.8 Chloride 103 Carbon Dioxide 22 BUN 8 Creatinine 0.38 L Glucose 102 H Calcium 7.9 L Medications Administered Current Inpatient Medications Acetaminophen (Acetaminophen 325 Mg Tab) 650 mg PO QID PRN PRN Reason: pain/fever Stop: 05/08/23 21:51 Last Admin: 04/10/23 12:51 Dose: 650 mg Apixaban (Apixaban 2.5 Mg Tab) 2.5 mg PO BID [facility] Stop: 05/10/23 08:59 Last Admin: 04/10/23 09:45 Dose: Not Given Bisacodyl (Bisacodyl 10 Mg Supp) 10 mg [place] DAILY PRN PRN Reason: Constipation Stop: 05/09/23 00:43 Calcium/Vitamin D (Calcium 600mg + Vit D 400 Iu Tab) [facility] [place]: 05/09/23 08:59 Last Admin: 04/11/23 08:40 Dose: 1 tab Docusate Sodium (Docusate Sodium 100 Mg Cap) 100 mg PO BID [facility] Stop: 05/11/23 11:59 Famotidine (Famotidine 20 Mg Tab) 20 mg PO QAM [facility] Stop: 05/09/23 08:59 Last Admin: 04/11/23 08:40 Dose: 20 mg Promethazine HCl 6.25 mg/ (Sodium Chloride) 50.25 mls @ 201 mls/hr IV Q6H PRN PRN Reason: Nausea And Vomiting Stop: 05/08/23 21:51 Levothyroxine Sodium (Levothyroxine Sodium 125 Mcg Tablet) 125 mcg PO DAILYBB [facility] Stop: 05/09/23 06:29 Last Admin: 04/11/23 06:14 Dose: 125 mcg Metoprolol Tartrate (Metoprolol Tartrate 50 Mg Tab) 50 mg PO BID [facility] Stop: 05/10/23 08:59 Last Admin: 04/11/23 08:41 Dose: 50 mg Morphine Sulfate (Morphine Sulfate 2 Mg/Ml Carp) 2 mg IV Q3H PRN PRN Reason: Pain Stop: 04/22/23 21:51 Last Admin: 04/11/23 12:42 Dose: 2 mg Multivitamins (Multivitamin Tab) 1 tab PO QDD [facility] Stop: 05/09/23 16:29 Last Admin: 04/10/23 16:03 Dose: 1 tab Naloxone HCl (Naloxone Hcl 0.4 Mg/1 Ml Vial/Carp) 0.1 mg IV UD PRN PRN Reason: Opiate Overdose Stop: 05/09/23 00:43 Oxycodone HCl (Oxycodone Hcl Ir 5 Mg Tab (Immediate Release)) 5 - 10 mg PO QID PRN PRN Reason: Pain Stop: 04/22/23 21:51 Last Admin: 04/10/23 21:39 Dose: 5 mg Polyethylene Glycol (Polyethylene (Miralax) 17 Gm Pack) 17 gm PO DAILY PRN PRN Reason: Constipation Stop: 05/09/23 08:59 Polyethylene Glycol (Polyethylene (Miralax) 17 Gm Pack) 17 gm PO ONE ONE Stop: 04/11/23 16:01
[2023-04-11] MEDS: DOCUSATE SODIUM 100 MG CAP PO SCH ×2 (15:42→21:12)
[2023-04-11 15:44] LABS: Hematocrit (blood only) 23.2 % (37.0-47.0)
[2023-04-11] MEDS: MULTIVITAMIN TAB PO SCH (15:44)
[2023-04-11] MEDS ORDERED: POLYETHYLENE (MIRALAX) 17 GM PACK PO ONE (16:00)
--- NOTE | 2023-04-11 16:04 | Electrocardiogram Report ---
Test Reason : Blood Pressure : / mmHG Vent. Rate : 099 BPM Atrial Rate : 099 BPM P-R Int : 136 ms QRS Dur : 084 ms QT Int : 346 ms P-R-T Axes : 023 -26 046 degrees QTc Int : 444 ms Normal sinus rhythm Normal ECG When compared with ECG of 10-APR-2023 00:33, Left anterior fascicular block is no longer Present Confirmed by Jaden Mitchell ([id number]) on 04/11/2023 4:03:45 PM Referred By: NO PCP Confirmed By:Jaden Mitchell
[2023-04-11] MEDS: APIXABAN 2.5 MG TAB PO SCH (21:13)
[2023-04-12] MEDS: LEVOTHYROXINE SODIUM 125 MCG TABLET PO SCH (05:49)
[2023-04-12 07:00] LABS: Hematocrit (blood only) 23.9 % (37.0-47.0); Mean Corpuscular Hemoglobin 30.9 pg (25.0-34.0); Mean Corpuscular Hgb Conc 33.5 g/dL (32.0-36.0); Mean Corpuscular Volume 92.3 fL (80.0-100.0); Mean Platelet Volume 10.2 fL (9.4-12.4); Platelet Count 224 K/uL (130-400); RDW Coefficient of Variation 14.8 % (11.5-14.5); RDW Standard Deviation 50.2 fL (36.4-46.3); Red Blood Count 2.59 M/uL (4.20-5.40)
[2023-04-12 07:16] LABS: Calcium 8.2 mg/dl (8.6-10.3); Creatinine Clr Calc Pharmacy 123.6 ml/min; Est GFR (Non-African American) 100.9 ml/min; Potassium 3.6 mmol/L (3.5-5.1)
--- NOTE | 2023-04-12 07:56 | Orthopedic Progress Note ---
Date of Service April 12, 2023 Assessment & Plan (1) Closed intertrochanteric fracture of left hip: Overall she is in good spirits and is feeling quite well postoperatively. She may continue being weightbearing as tolerated to the left lower extremity. She is to work again with physical therapy today hopefully progressing with them. Hemoglobin remains at 8.0 today. She is aware that she cannot put full weight on her left wrist and right shoulder and to remain in the sling for another week per Dr. Forbes's wishes. This may make physical therapy a little bit difficult for her. Hopefully today we can get her to progress with physical therapy to go bedside into a chair. She is currently on Eliquis 2.5 mg twice a day for DVT prophylaxis. Social work is currently trying to get her placed into [facility] [employer] [facility] for rehabilitation. We will see how physical therapy goes today. Subjective . Patient was seen at bedside this morning in good spirits. Overall she is doing quite well postoperatively. She does note that she is a little bit sore today from working with physical therapy yesterday but is looking forward to try to get out of bed again today. She was able to stand at bedside with physical therapy with max assist yesterday. She has yet to transition from bed to chair. Her hemoglobin remains at 8.0 today. She denies any concerns for surgical incision site. She denies any active bleeding, discharge, or signs of infection. Review of Systems All systems reviewed & are unremarkable except as noted in HPI & below. Physical Exam . Focused exam of the left hip shows dressings are clean, dry, and intact. No signs of active bleeding, discharge, or signs of infection. She does have full extension of her left leg but does have discomfort with movement. Plantarflexion and dorsiflexion intact of the left ankle. +2 DP and PT pulses. Less than 2-second capillary refill. Normal sensation. Neurovascular intact. Results & Data Results & Data Laboratory Results . Abnormal lab results 04/08/23 04/11/23 04/11/23 Range/Units 23:55 06:50 15:21 RBC (4.20-5.40) M/uL Hgb 8.0 L (12.0-16.0) g/dl Hct 23.2 L (37.0-47.0) % RDW Std Deviation (36.4-46.3) fL RDW Coeff of Angel (11.5-14.5) % Sodium 132 L (136-145) mmol/L Creatinine 0.38 L (0.6-1.2) mg/dl BUN/Creatinine Ratio 21.1 H (10-20) Glucose 102 H (70-99(Fasting)) mg/dl Calcium 7.9 L (8.6-10.3) mg/dl Crossmatch See Detail 04/12/23 Range/Units 06:10 RBC 2.59 L (4.20-5.40) M/uL Hgb 8.0 L (12.0-16.0) g/dl Hct 23.9 L (37.0-47.0) % RDW Std Deviation 50.2 H (36.4-46.3) fL RDW Coeff of Angel 14.8 H (11.5-14.5) % Sodium 133 L (136-145) mmol/L Creatinine 0.37 L (0.6-1.2) mg/dl BUN/Creatinine Ratio 27.0 H (10-20) Glucose 109 H (70-99(Fasting)) mg/dl Calcium 8.2 L (8.6-10.3) mg/dl Crossmatch Diagnostic Findings . PG Care Time/CCT Total # of Minutes Spent Total Time Spent with Patient: Total time spent is greater than 50% in coordination of care (as documented) at patient's floor/unit and/or counseling patient: Coding Level of Care Code 74360 Post Operative Follow-Up Diagnoses Closed intertrochanteric fracture of left hip S72.142A Encounter type: initial encounter Fracture alignment: displaced (1) Closed intertrochanteric fracture of left hip Encounter type: initial encounter Fracture alignment: displaced Qualified Code(s): S72.142A - Displaced intertrochanteric fracture of left femur, initial encounter for closed fracture
[2023-04-12] MEDS: METOPROLOL TARTRATE 50 MG TAB PO SCH ×2 (08:02→21:11)
[2023-04-12] MEDS: FAMOTIDINE 20 MG TAB PO SCH (08:02)
[2023-04-12] MEDS: CALCIUM 600MG + VIT D 400 IU TAB PO SCH (08:02)
[2023-04-12] MEDS: APIXABAN 2.5 MG TAB PO SCH ×2 (08:02→21:11)
[2023-04-12] MEDS: ASCORBIC ACID 500 MG TAB PO SCH (08:03)
[2023-04-12] MEDS: DOCUSATE SODIUM 100 MG CAP PO SCH ×2 (08:03→21:11)
[2023-04-12] MEDS: FERROUS SULFATE 325 MG TAB PO SCH (08:03)
[2023-04-12] MEDS: oxyCODONE HCL IR 5 MG TAB (IMMEDIATE RELEASE) PO PRN ×2 (09:05→17:28)
[2023-04-12] MEDS ORDERED: POLYETHYLENE (MIRALAX) 17 GM PACK PO PRN (11:44)
--- NOTE | 2023-04-12 15:08 | Hospitalist Progress Note ---
Date of Service April 12, 2023 Assessment & Plan (1) Hip fracture: Plan: Left hip fracture left distal radial fracture Secondary to fall --Hip X ray:Comminuted and displaced intertrochanteric fracture within the proximal left femur. --Left Wrist:Comminuted intra-articular distal radial fracture. Degenerative changes are seen without definite carpal or metacarpal fractures. S/p Open Reduction Internal Fixation Left Hip by Dr. Forbes on 04/09/23 Pain control, fall precautions Bowel regimen to prevent constipation - give miralax x 1 today and add colace bid Per ortho - WBAT LLE PT/OT recommending rehab Hyponatremia Likely due to hypovolemia/dehydration Sodium levels improved with IVF, 132 today Monitor sodium levels Normocytic anemia Acute blood loss anemia as a result of multiple recent surgical procedures, R shoulder, L hip Normal vitamin B12, folate levels Serum iron slightly low Denies any bleeding issues hgb 7.3 04/10 with hemodynamic instability, pt with evidence of tachycardia and lower blood pressures and received 1 unit PRBC this has improved started Ferrous sulfate + vit C daily hgb today 8.0, feels clinically improved eliquis resumed Sinus tachycardia Likely in setting of volume depletion improved after 1 unit prbc hold atenolol and place on metoprolol tartrate 50mg bid likely can continue atenolol at discharge as long as resolved Recent right shoulder surgery Continue sling Needs follow-up with orthopedics upon discharge Hypertension improving, 124/72 will continue to hold home meds, except beta blas Hold Amlodipine and lisinopril Atenolol on hold in favor of metoprolol tartrate Monitor BP Hypothyroidism Continue levothyroxine H/O Post Operative PE As per records Right breast cancer S/P surgery/radiation/Anastrozole Rx Prediabetes HbA1C 5.8 Past tobacco abuse As per records DVT Px: Eliquis 2.5 mg BID Dispo: pt medically stable for discharge as long as hemoglobin remains stable and ok from orthopedic stand point. PT/OT recommending rehab, CM placed referrals Code Status: Full code Pt was seen and examined in collaboration with Dr. Caldwell, please see addendum Admission and Anticipated Discharge Date Admission Date: April 08, 2023 Supervising Physician Co-Signing Physician Notes Patient is seen and examined at bedside. Left hip pain is controlled. + Flatus, no bowel movement today. Received miralax. added colace. On exam patient is obese, no apparent distress, normocephalic atraumatic, EOMI, normal breath sounds, clear to auscultation, S1-S2, no murmur, abdomen soft, nontender, left hip surgical site in dressing, alert, awake, oriented, grossly no focal deficits. Patient is being managed for left hip fracture S/P open reduction internal fixation by Dr. Forbes. Postoperative acute blood loss anemia. S/P 1 unit PRBC. Hb stable. Monitor hyponatremia. Sodium 133 today. Continue metopro lol with holding parameters. Resume amlodipine, lisinopril as able . Monitor CBC. continue bowel regimen to prevent constipation. Resume Eliquis. Plan to discharge to rehab facility once cleared by orthopedics. Needs follow-up with orthopedics upon discharge. I personally reviewed the record. Patient is interviewed and examined at bedside. Patient's care is coordinated with Laura Barahona PA-C. Please refer to the documentation above for details of patient's presentation and for discussion of other issues. Subjective Patient was seen and examined in room 316. Follow-up left hip fracture along with left distal radial fracture. Continues to feel improved today and is having less pain to left wrist and hip. Participating with therapy. Her appetite is slightly improved as well. She has not yet moved bowels but passing flatus. Denies lightheadedness, dizziness, chest pain, shortness breath, fever or chills. She feels improved after receiving 1 unit PRBC yesterday. Review of Systems Review of Systems: At least ten systems reviewed and negative except as noted in the HPI. Physical Exam Physical Exam: Gen: WD/WN, NAD, resting in bed after PT, A&O x3, HEENT: Normocephalic, atraumatic, conjunctivae moist, sclerae anicteric, mucous membranes moist Lung: Clear to Auscultation bilaterally, no wheezes/rales/rhonchi Heart: Regular rate, regular rhythm, no murmurs, rubs, or gallops Abdomen: Soft, NT, ND +BS x 4 Extremities: No edema, LLE Dressing CDI with adjacent blisters, no drainage or erythema, L wrist splinted, R shoulder with incision well healed, strength intact Skin: Warm, no rash Results & Data Results & Data Vital Signs (Past 12 Hours) Vital Signs Temp Pulse Resp BP Pulse Ox O2 Del Method 04/12/23 07:55 37.2 C 107 H 16 131/73 94 Room Air Laboratory Results Short CBC 04/11/23 04/12/23 Range/Units 15:21 06:10 WBC 8.10 (4.8-10.8) K/ul Hgb 8.0 L 8.0 L (12.0-16.0) g/dl Hct 23.2 L 23.9 L (37.0-47.0) % Plt Count 224 (130-400) K/uL BMP 04/12/23 06:10 Sodium 133 L Potassium 3.6 Chloride 101 Carbon Dioxide 25 BUN 10 Creatinine 0.37 L Glucose 109 H Calcium 8.2 L Diagnostic Findings Hip/Pelvis X-Ray 04/08/23 18:27 XR hip LT 2V w pelvis CLINICAL HISTORY: Left hip pain. Fall. COMPARISON STUDY: Pelvis 10/28/2019. FINDINGS: Comminuted and displaced intertrochanteric fracture within the proximal left femur. No dislocation of the left femoral head. The bones are osteopenic. No acute fracture or dislocation within the pelvis or right hip. There is a right total arthroplasty. The hardware appears intact. IMPRESSION: Comminuted and displaced intertrochanteric fracture within the proximal left femur. ACT 112: Negative or not required by law. Electronically signed by: Willie Henriquez M.D. 04/09/2023 7:02 AM Wrist X-Ray 04/08/23 18:27 XR wrist LT min 3V routine CLINICAL HISTORY: pain fall TECHNIQUE: 4 views of the left wrist were obtained. Comparison: None available at the time of this dictation. FINDINGS: There is a comminuted intra-articular fracture of the distal radial metadiaphysis with overriding of fragments Osteophyte formation and joint space narrowing is seen. No soft tissue abnormality is seen. IMPRESSION: Comminuted intra-articular distal radial fracture. Degenerative changes are seen without definite carpal or metacarpal fractures. ACT 112: Negative or not required by law. Electronically signed by: Jose Antonio Bajwa M.D. 04/08/2023 8:02 PM Chest X-Ray 04/08/23 19:45 XR chest 1V portable CLINICAL HISTORY: preop TECHNIQUE: Single frontal radiograph of the chest was obtained. 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 Cardiomegaly is noted. The aortic arch is calcified. The lungs are clear. No evidence of pleural effusion or pneumothorax. IMPRESSION: No acute chest disease. ACT 112: Negative or not required by law. Electronically signed by: Jose Antonio Bajwa M.D. 04/08/2023 8:01 PM Hip X-Ray 04/09/23 13:00 INTRAOPERATIVE RADIOGRAPHS CLINICAL HISTORY: Open reduction and internal fixation of the left proximal femur. Fluoro time: 105 seconds Ka,r: 24.75 mGy FINDINGS: 6 spot fluoroscopic views of the left femur are correlated with radiographs dated 04/08/2023. Intertrochanteric and intramedullary nails have been placed transfixing an intertrochanteric/subtrochanteric fracture of the left proximal femur. Near-anatomic alignment is restored, with mild persistent offset of the largest fragments. A single cortical lag screw transfixes the distal end of the intramedullary nail. A left knee arthroplasty is in place. IMPRESSION: Intraoperative images from open reduction and internal fixation of the left proximal femur as above. Electronically signed by: Fred Eden M.D. 04/09/2023 4:01 PM Femur X-Ray 04/09/23 16:50 LEFT FEMUR 2 VIEWS CLINICAL HISTORY: Postoperative examination. FINDINGS: AP and crosstable lateral portable views of the left femur are compared to study dated 04/08/2023. The skeletal structures are osteopenic. There has been intertrochanteric and intramedullary nail fixation of a comminuted intertrochanteric/subtrochanteric fracture of the left proximal femur with catholic of near-anatomic alignment. There is mild persistent offset of the largest fragments. The orthopedic hardware appears intact. A single cortical lag screw transfixes the distal end of the intramedullary nail. No new fracture is s een. The visualized left hemipelvis appears intact. Skin clips, soft tissue swelling, and subcutaneous gas overlying the left femur are expected postsurgical changes. A left knee arthroplasty is in place. IMPRESSION: Expected postsurgical findings status post intertrochanteric and intramedullary nail fixation of a left proximal femoral fracture as above. Electronically signed by: Fred Eden M.D. 04/09/2023 5:48 PM
[2023-04-12] MEDS: MULTIVITAMIN TAB PO SCH (17:27)
[2023-04-13] MEDS: LEVOTHYROXINE SODIUM 125 MCG TABLET PO SCH (05:34)
[2023-04-13 06:45] LABS: Hematocrit (blood only) 23.8 % (37.0-47.0); Hemoglobin 7.8 g/dl (12.0-16.0); Mean Corpuscular Hemoglobin 30.5 pg (25.0-34.0); Mean Corpuscular Hgb Conc 32.8 g/dL (32.0-36.0); Mean Platelet Volume 9.6 fL (9.4-12.4); Platelet Count 262 K/uL (130-400); RDW Coefficient of Variation 14.6 % (11.5-14.5); RDW Standard Deviation 50.1 fL (36.4-46.3); Red Blood Count 2.56 M/uL (4.20-5.40); White Blood Count 6.44 K/ul (4.8-10.8)
[2023-04-13 07:00] LABS: BUN Creatinine Ratio 28.2 (10-20); Calcium 8.5 mg/dl (8.6-10.3); Creatinine Clr Calc Pharmacy 117.2 ml/min; Est GFR (Non-African American) 99.2 ml/min; Potassium 3.7 mmol/L (3.5-5.1)
[2023-04-13] MEDS: oxyCODONE HCL IR 5 MG TAB (IMMEDIATE RELEASE) PO PRN ×3 (07:30→20:40)
--- NOTE | 2023-04-13 07:42 | Orthopedic Progress Note ---
Date of Service April 13, 2023 Assessment & Plan (1) Closed intertrochanteric fracture of left hip: Overall she is in good spirits and is feeling quite well postoperatively. She may continue being weightbearing as tolerated to the left lower extremity. She is to work again with physical therapy today hopefully progressing with them. Hemoglobin remains at 7.8 today. She is aware that she cannot put full weight on her left wrist and right shoulder and to remain in the sling for another week per Dr. Forbes's wishes. This may make physical therapy a little bit difficult for her. Hopefully today we can get her to progress with physical therapy to go bedside into a chair. She is currently on Eliquis 2.5 mg twice a day for DVT prophylaxis. Social work is currently trying to get her placed into [facility] for rehabilitation. I did discuss with the nurse about changing her occlusive dressing from the most superior incision due to the fact that she appears that she is getting blisters from an allergy to the occlusive dressing. She will be changed to a 4 x 4 and Medipore around all the surgical sites. We will see how physical therapy goes today. Subjective . Patient is doing well today postoperatively left femur. There was some concerns with blistering around the surgical site secondary to the occlusive dressing that was placed intraoperatively. She does state that she has some allergic reactions to certain type of adhesive dressings. The bottom 2 surgical sites were changed yesterday with a more superior one still remain in the occlusive dressing. There is no signs of active bleeding, discharge, or signs of infection at the surgical sites. She has worked with physical therapy yesterday and was able to stand at bedside a little bit more with them. She is still having difficulty doing activities due to her being nonweightbearing to the right and left upper extremities. She is currently still waiting for placement at [facility]. No updates yet. Hemoglobin is 7.8 this morning. Review of Systems All systems reviewed & are unremarkable except as noted in HPI & below. Physical Exam Focused exam of the left hip shows dressings are clean, dry, and intact. No signs of active bleeding, discharge, or signs of infection. However there are couple blisters around where the occlusive dressings were by is a safe distance away from the surgical sites. She does have full extension of her left leg but does have discomfort with movement. Plantarflexion and dorsiflexion intact of the left ankle. +2 DP and PT pulses. Less than 2-second capillary refill. Normal sensation. Neurovascular intact. . Results & Data Results & Data Laboratory Results . Abnormal lab results 04/13/23 Range/Units 06:11 RBC 2.56 L (4.20-5.40) M/uL Hgb 7.8 L (12.0-16.0) g/dl Hct 23.8 L (37.0-47.0) % RDW Std Deviation 50.1 H (36.4-46.3) fL RDW Coeff of Angel 14.6 H (11.5-14.5) % Sodium 133 L (136-145) mmol/L Creatinine 0.39 L (0.6-1.2) mg/dl BUN/Creatinine Ratio 28.2 H (10-20) Glucose 109 H (70-99(Fasting)) mg/dl Calcium 8.5 L (8.6-10.3) mg/dl Diagnostic Findings . PG Care Time/CCT Total # of Minutes Spent Total Time Spent with Patient: Total time spent is greater than 50% in coordination of care (as documented) at patient's floor/unit and/or counseling patient: Coding Level of Care Code 89341 Post Operative Follow-Up Diagnoses Closed intertrochanteric fracture of left hip S72.142A Encounter type: initial encounter Fracture alignment: displaced (1) Closed intertrochanteric fracture of left hip Encounter type: initial encounter Fracture alignment: displaced Qualified Code(s): S72.142A - Displaced intertrochanteric fracture of left femur, initial encounter for closed fracture
[2023-04-13] MEDS: APIXABAN 2.5 MG TAB PO SCH ×2 (08:59→20:40)
[2023-04-13] MEDS: FAMOTIDINE 20 MG TAB PO SCH (09:00)
[2023-04-13] MEDS: METOPROLOL TARTRATE 50 MG TAB PO SCH ×2 (09:00→20:40)
[2023-04-13] MEDS: ASCORBIC ACID 500 MG TAB PO SCH (09:00)
[2023-04-13] MEDS: FERROUS SULFATE 325 MG TAB PO SCH (09:00)
[2023-04-13] MEDS: DOCUSATE SODIUM 100 MG CAP PO SCH ×2 (09:00→20:40)
[2023-04-13] MEDS: CALCIUM 600MG + VIT D 400 IU TAB PO SCH (09:00)
--- OUTSIDE RECORDS SUMMARY | 2023-04-13 13:57 | External Medical Summary | Summary of Care ---
Author Name Unknown Organization [facility] Address [address] [place] [address] Phone [phone] Care Team Providers Care Rubber Tubing Backer Name Role Phone Magalie Arredondo MD Primary Care Provid er Reason for Visit * Reason Onset Date Comments Medication Refill 02/06/2023 Encounter Details Date Type Department Care Team Description 02/06/2023 Refill [facility] [address] [place] [facility] [place] [place] [address] Magalie Arredondo MD [address] [place] [address] Irritable bowel syndrome, unspecified type Allergies Active Allergy Reactions Severity Noted Date Comments Adhesive Tape High 07/19/2022 Other reaction(s): bandaids- redness, pruritus Latex Other (Please comment),Rash 11/16/2009 Sensitivity to latex; okay to use exam gloves Penicillins Other (Please comment) 11/16/2009 Mouth sores documented as of this encounter (statuses as of 02/06/2023) Medications Medication Sig Dispensed Refills Start Date End Date Status MULTIPLE VITAMINS PO TABS One daily 0 Active GLUCOSAMINE CHONDROITIN COMPLX PO CAPS One twice a day 0 Active CALCIUM 600 MG PO TABS Take 1 Tablet by mouth daily with dinner. 0 Active ASPIRIN 81 MG PO TABS Take 1 Tablet by mouth at bedtime. 0 Active Cholecalciferol (VITAMIN D) 400 UNITS Capsule Take 1 Capsule by mouth in the morning and 1 Capsule before bedtime. 30 Cap 11 05/05/2015 Active clindamycin (CLEOCIN) 150 MG Capsule Take 4 pills 1 hour before dental appointment 4 Cap 2 09/14/2015 Active Probiotic Product (PROBIOTIC ACIDOPHILUS) Capsule Take 1 Capsule by mouth. 1 daily 0 Active clotrimazole-betame thasone (LOTRISONE) 1-0.05 % cream Apply topically to affected area 2 times a day. To affected area for 4 weeks, or until healed. 15 g 1 01/01/2017 Active diphenhydrAMINE HCl 25 MG Oral Tablet (BENADRYL) Take 1 Tablet by mouth every 6 hours as needed for Allergies. 0 Active Ibuprofen 200 MG Oral Tablet (MOTRIN) Take 1 Tablet by mouth every 8 hours as needed for Pain. Take 1-2 tabs every 8-12 hours prn 0 Active Atenolol 50 MG Oral Tablet (Tenormin)Indicatio ns:Hypertension, goal below 150/90 Take by mouth 1 Tablet in the morning. 90 Tablet 3 04/03/2022 Active amLODIPine Besylate 5 MG Oral Tablet (Norvasc) TAKE 1 TABLET BY MOUTH EVERY DAY IN THE MORNING 90 Tablet 1 09/21/2022 Active Lisinopril 40 MG Oral Tablet TAKE 1 TABLET BY MOUTH EVERY DAY IN THE MORNING 90 Tablet 1 09/21/2022 Active Atorvastatin Calcium 40 MG Oral Tablet (Lipitor) TAKE 1 TABLET BY MOUTH EVERY DAY IN THE MORNING 90 Tablet 1 09/21/2022 Active Famotidine 20 MG Oral Tablet (Pepcid)Indications :Gastroesophageal reflux disease without esophagitis TAKE 1 TABLET BY MOUTH EVERY DAY IN THE MORNING 90 Tablet 1 09/21/2022 Active Levothyroxine Sodium 125 MCG Oral Tablet (Levoxyl)Indication s:Acquired hypothyroidism Take 1 Tablet by mouth daily first thing in the morning. (at least 30 min prior to breakfast or other meds) 90 Tablet 3 12/04/2022 Active Hyoscyamine Sulfate 0.125 MG Sublingual Tablet Sublingual (Levsin)Indications :Irritable bowel syndrome, unspecified type 1 TABLET EVERY 4 HOURS NEEDED FOR ABDOMINAL PAIN 90 Tablet 1 02/06/2023 Active Hyoscyamine Sulfate 0.125 MG Sublingual Tablet Sublingual (Levsin)Indications :Irritable bowel syndrome, unspecified type 1 TABLET EVERY 4 HOURS NEEDED FOR ABDOMINAL PAIN 90 Tablet 1 04/14/2021 3 Discontinue d(Refill) documented as of this encounter (statuses as of 02/06/2023) Active Problems Problem Noted Date Diverticulitis 09/22/2022 H/O: hysterectomy 09/22/2022 History of right hip replacement 023 Osteoarthritis of right shoulder 023 Hammertoe of right foot 06/05/2022 Pancreatic lesion 07/12/2018 Dilated cbd, acquired 07/12/2018 History of breast cancer 09/17/2017 Gastroesophageal reflux disease without esophagitis 09/17/2017 Senile osteoporosis 03/19/2017 Dyslipidemia 03/19/2017 Hypertension, goal below 150/90 09/14/19 16 Hypothyroidism 09/14/2015 Malignant neoplasm of breast 11/10/2009 documented as of this encounter (statuses as of 02/06/2023) Resolved Problems Problem Noted Date Resolved Date ADVANCE DIRECTIVE INFORMATION 02/02/2010 Overview: Gave advance directive booklet/info. Malignant neoplasm of lower-outer quadrant of fe male breast 12/14/2009 09/17/2017 documented as of this encounter (statuses as of 02/06/2023) Immunizations Name Administration Dates Next Due COVID-19 mRNA, LNP-s, No Pre serve, 2-Dose Series ([employer]) 03/28/2021,08/13/2020,07/23/2020 Covid-19, Mrna, Lnp-s, Pf, B ivalent, 30 Mcg, IM, 12 yrs and above ([employer]) 03/02/2022 Pneumococcal Conjugate Vacc, 13 Valent (Prevnar) 05/05/2015 Pneumococcal Polysaccharide PPV23 (Pneumovax) 03/15/2011 Seasonal Influenza, PF, 6 mo ns & Above, IM , (Flulaval) 02/14/2020,03/04/2019,03/15/2018,02/22 Seasonal Influenza, Quadriva lent Hd (Fluzone Hd) 03/01/2022,03/05/2021 Seasonal Influenza, Quadriva lent, No Preserve, IM 03/20/2016,04/04/2015 TDAP (age 10 and older)(Boostrix) 10/11/2020,07/2014 Varicella Zoster Vaccine (Adult) 08/05/2011 Zoster Vaccine Recombinant (Shingrix) 12/13/2020 ,10/11/2020 documented as of this encounter Social History Tobacco Use Types Packs/Day Years Used Date Smoking Tobacco: Former Cigarettes Q uit: 06/04/1967 Smokeless Tobacco: Never Comments:Quit 1967 Alcohol Use Standard Drinks/Week Comments No 0 (1 standard drink = 0.6 oz pur e alcohol) Food Insecurity Answer Date Recorded Within the past 12 months, y ou worried that your food would run out before you got money to buy more. Never true 03/28/2019 Within the past 12 months, t he food you bought just didn't last and you didn't have money to get more. Never true 03/28/2019 Sex Assigned at Date Recorded Not on file Job Start Date Occupation Industry Not on file Not on file Not on file documented as of this encounter Miscellaneous Notes * Telephone Encounter - Magalie Arredondo MD - 02/06/2023 1:42 PM EDT Signed Prescriptions: Disp Refills Hyoscyamine Sulfate 0.125 MG Sublingual Ta*90 Tab*1 Si TABLET EVERY 4 HOURS NEEDED FOR ABDOMINAL PAIN Authorizing Provider: MAGALIE ARREDONDO * Telephone Encounter - Karne Angulo LPN - 02/06/2023 9:35 AM EDT Provider to address: Pending Prescriptions: Disp Refills Hyoscyamine Sulfate 0.125 MG Sublingual T*90 Tab*1 Si TABLET EVERY 4 HOURS NEEDED FOR ABDOMINAL PAIN Last Visit: 12/26/2022 (in office), Visit date not found (telemedicine) Next Visit: 07/03/2023 Last date the medication was ordered: 04/14/21 Patient Active Problem List Diagnosis Code Hypertension, goal below 150/90 I10 Hypothyroidism E03.9 Senile osteoporosis M81.0 Dyslipidemia E78.5 History of breast cancer Z85.3 Gastroesophageal reflux disease without esophagitis K21.9 Pancreatic lesion K86.9 Dilated cbd, acquired K83.8 Diverticulitis K57.92 H/O: hysterectomy Z90.710 Hammertoe of right foot M20.41 History of right hip replacement Z96.641 Malignant neoplasm of breast (HCC) C50.919 Osteoarthritis of right shoulder M19.011 Labs: Lab Results Component Value Date/Time CREATININE - [facility] 0.8 11/29/2022 11:34 AM CREATININE - [facility] 0.7 01/21/2020 11:16 AM CREATININE, RANDOM URINE - [facility] 28 06/23/2022 11:01 AM CREATININE-OUTSIDE LAB 0.62 07/13/2016 12:00 AM Lab Results Component Value Date/Time POTASSIUM - [facility] 4.5 11/29/2022 11:34 AM POTASSIUM - [facility] 4.7 01/21/2020 11:16 AM POTASSIUM-OUTSIDE LAB 4.0 07/13/2016 12:00 AM Lab Results Component Value Date/Time TSH - [facility] 0.23 (L) 11/29/2022 11:34 AM TSH - [facility] 0.30 01/21/2020 11:16 AM Lab Results Component Value Date/Time LDL CHOLESTEROL (CALCULATED) - [facility] 63 11/29/2022 11:34 AM LDL CHOLESTEROL (CALCULATED) - [facility] 92 03/16/2021 09:16 AM LDL CHOLESTEROL (CALCULATED) - [facility] 90 01/21/2020 11:16 AM LDL CHOLESTEROL (CALCULATED) - [facility] 64 09/25/2018 09:31 AM LDL CHOLESTEROL (DIRECT MEASURE) - [facility] NOT APPLICABLE 01/21/2020 11:16 AM Lab Results Component Value Date/Time ALT - [facility] 24 11/29/2022 11:34 AM ALT - [facility] 28 01/21/2020 11:16 AM Hemoglobin AIC Results: No results found for: HEMOGLOBIN A1C Reason for Call: Medication Refill Contact: Telephone Call Contact Type: Medication Outcome: pending Total Time including non face to face (minutes): 5 documented in this encounter Plan of Treatment Upcoming Encounters Date Type Specialty Care Team Description 07/03/2023 Office Visit Family Medicine Magalie Arredondo MD [address] [place] [address] Health Maintenance Due Date Last Done Comments Hepatitis C Screening 1963 DXA Scan 08/13/2021 08/14/2019, 09/03, 08/20/2012, Additional history exists Influenza Vaccine (FLU shot) (#1) 2023 03/01/2022, 03/05/2021, 02/14/2020, Additional history exists Depression Screening, Annual for Pts 12 and Over 03/01/2023 03/01/2022 GFR 11/30/2023 11/29/2022, 06/05, 10/21/2021, Additional history exists TSH 11/30/2023 11/29/2022, 06/05, 10/21/2021, Additional history exists Albumin/Creatinine Ratio 06/23/2025 06/23/2022 DTaP,Tdap,and Td Vaccines (3 - Td or Tdap) 10/11/2030 10/11/2020, 05/05/2015 Pneumococcal Vaccine: 65+ Years Completed 05/05/2015, 03/15/2011 *BISPHONATE OR OTHER ACCEPTABLE MEDICATION NEEDED FOR OSTEOPOROSIS (REFER TO SMARTSET #1146) Addressed 09/17/2017 (Declined) Overridden w ith the intention of not completing the topic VITAMIN D LEVEL ONCE IN A LIFETIME-USE SMARTSET# 26929 Completed 09/20/2017 Zoster Vaccines Completed 12/13/2020, 10/02, 08/05/2011 COVID-19 Vaccine Completed 03/02/2022, , 08/13/2020, Additional history exists GARDASIL-HPV IMMUNIZATION SERIES Aged Out No longer eligible based on patient's age to complete this topic Hepatitis B Aged Out No longer eligi ble based on patient's age to complete this topic MENINGOCOCCAL (MENACTRA/MENVEO) Aged Out No longer eligible based on patient's age to complete this topic documented as of this encounter Medical Devices Implanted Type Area Sales Officer Device Identifier Shelf Expiration Date Model / Serial / Lot Lens Intraoc 20.0 - [id number] - [id number] Implanted:Qty: 1 on 02/15/2021 by Ben Patel MD at OR [facility] Left: Eye [employer]OM[employer] 11/01/2025 [id number] / [id number] / [id number] Lens Intraoc 19.5 - [id number] - [id number] Implanted:Qty: 1 on 02/22/2021 by Ben Patel MD at OR [facility] Right: Eye [employer]CH [employer]OMB 10/01/2025 [id number] / [id number] / [id number] documented as of this encounter Visit Diagnoses Diagnosis Irritable bowel syndrome, unspecified type documented in this encounter Care Teams Rubber Tubing Backer Relationship Specialty Start Date End Date Magalie Arredondo MD [address] [place] [id number] PCP - General Family Medicine 02/28/22 documented as of this encounter
--- OUTSIDE RECORDS SUMMARY | 2023-04-13 13:57 | External Medical Summary | Summary of Care ---
Author Name Unknown Organization [facility] Address [address] [place] [address] Phone [phone] Care Team Providers Care Dust Puller Name Role Phone Magalie Arredondo MD Primary Care Provid er Reason for Visit * Reason Comments eRx-Medication Refill Encounter Details Date Type Department Care Team (Late st Contact Info) Description 04/04/2023 Refill [facility] [address] [place] [address] Magalie Arredondo MD [address] [place] [address] Hypertension, goal below 150/90 Allergies Active Allergy Reactions Criticality Noted Date Comments Adhesive Tape High 07/19/2022 Other reaction(s): bandaids- redness, pruritus Latex Other (Please comment),Rash 11/16/2009 Sensitivity to latex; okay to use exam gloves Penicillins Other (Please comment) 11/16/2009 Mouth sores documented as of this encounter (statuses as of 04/04/2023) Medications Medication Sig Dispensed Refills Start Date [...] 1 Capsule before bedtime. 30 Cap 11 5 Active clindamycin (CLEOCIN) 150 MG Capsule Take 4 pills 1 hour before dental appointment 4 Cap 2 6 Active Probiotic Product (PROBIOTIC ACIDOPHILUS) Capsule Take 1 Capsule by mouth. 1 daily 0 Active clotrimazole-betame thasone (LOTRISONE) 1-0.05 % cream Apply topically to affected area 2 times a day. To affected area for 4 weeks, or until healed. 15 g 1 7 Active diphenhydrAMINE HCl 25 MG Oral Tablet (BENADRYL) Take 1 Tablet by mouth every 6 hours as needed for Allergies. 0 Active Ibuprofen 200 MG Oral Tablet (MOTRIN) Take 1 Tablet by mouth every 8 hours as needed for Pain. Take 1-2 tabs every 8-12 hours prn 0 Active Atorvastatin Calcium 40 MG Oral Tablet (Lipitor) TAKE 1 TABLET BY MOUTH EVERY DAY IN THE MORNING 90 Tablet 1 3 Active Famotidine 20 MG Oral Tablet (Pepcid)Indications :Gastroesophageal reflux disease without esophagitis TAKE 1 TABLET BY MOUTH EVERY DAY IN THE MORNING 90 Tablet 1 3 Active Levothyroxine Sodium 125 MCG Oral Tablet (Levoxyl)Indication s:Acquired hypothyroidism Take 1 Tablet by mouth daily first thing in the morning. (at least 30 min prior to breakfast or other meds) 90 Tablet 3 3 Active Hyoscyamine Sulfate 0.125 MG Sublingual Tablet Sublingual (Levsin)Indications :Irritable bowel syndrome, unspecified type 1 TABLET EVERY 4 HOURS NEEDED FOR ABDOMINAL PAIN 540 Tablet 1 3 Active Atenolol 50 MG Oral Tablet (Tenormin)Fredi ns:Hypertension, goal below 150/90 TAKE 1 TABLET BY MOUTH EVERY DAY IN THE MORNING 90 Tablet 3 3 Active amLODIPine Besylate 5 MG Oral Tablet (Norvasc) TAKE 1 TABLET BY MOUTH EVERY DAY IN THE MORNING 90 Tablet 1 3 Active Lisinopril 40 MG Oral Tablet TAKE 1 TABLET BY MOUTH EVERY DAY IN THE MORNING 90 Tablet 1 3 Active Atenolol 50 MG Oral Tablet (Tenormin)Indicatio ns:Hypertension, goal below 150/90 Take by mouth 1 Tablet in the morning. 90 Tablet 3 2 04/04/20 23 Discontinued amLODIPine Besylate 5 MG Oral Tablet (Norvasc) TAKE 1 TABLET BY MOUTH EVERY DAY IN THE MORNING 90 Tablet 1 3 04/04/20 23 Discontinued Lisinopril 40 MG Oral Tablet TAKE 1 TABLET BY MOUTH EVERY DAY IN THE MORNING 90 Tablet 1 3 04/04/20 23 Discontinued documented as of this encounter (statuses as of 04/04/2023) Active Problems Problem Noted Date Diagnosed Date Diverticulitis 09/22/2022 H/O: hysterectomy 09/22/2022 History of right hip replacement 09/22/2022 Osteoarthritis of right shoulder 09/22/2022 Hammertoe of right foot 06/05/2022 Pancreatic lesion 07/12/2018 Dilated cbd, acquired 07/12/2018 History of breast cancer 09/17/2017 Gastroesophageal reflux disease without esophagi tis 09/17/2017 Senile osteoporosis 03/19/2017 Dyslipidemia 03/19/2017 Hypertension, goal below 150/90 09/14/2015 Hypothyroidism 09/14/2015 Malignant neoplasm of breast 11/10/2009 documented as of this encounter (statuses as of 04/04/2023) Resolved Problems Problem Noted Date Diagnosed Date Resolved Date ADVANCE DIRECTIVE INFORMATION 02/02/2010 09/17/2017 Overview: Gave advance directive booklet/info. Malignant neoplasm of lower- outer quadrant of female breast 12/14/2009 09/17/2017 documented as of this encounter (statuses as of 04/04/2023) Immunizations Name Administration Dates Next Due COVID-19 mRNA, LNP-s, No Pre serve, 2-Dose Series ([employer]) 03/28/2021,08/13/2020,07/23/2020 Covid-19, Mrna, Lnp-s, Pf, B ivalent, 30 Mcg, IM, 12 yrs and above ([employer]) 03/02/2022 Pneumococcal Conjugate Vacc, 13 Valent (Prevnar) 05/05/2015 Pneumococcal Polysaccharide PPV23 (Pneumovax) 03/15/2011 SEASONAL INFLUENZA, PF, 6 M & Above, IM , (FLULAVAL or FLUZONE) 02/14/2020,03/04/2019,03/15/2018,02/22 Seasonal Influenza, Quadriva lent Hd (Fluzone [...] drink = 0.6 oz pur e alcohol) Sex and Gender Information Value Date Recorded Sex Assigned at Not on file Gender Identity Not on file Sexual Orientation Straight 08/02/2021 12 :21 PM EST Job Start Date Occupation Industry Not on file Not on file Not on file documented as of this encounter Miscellaneous Notes * Telephone Encounter - Glynn Mojica [facility] - 04/04/2023 3:24 PM EDT Signed Prescriptions: Disp Refills Atenolol 50 MG Oral Tablet (Tenormin) 90 Tab*3 Sig: TAKE 1 TABLET BY MOUTH EVERY DAY IN THE MORNINGAuthorizing Provider: MAGALIE ARREDONDO User: GLYNN GARCIA amLODIPine Besylate 5 MG Oral Tablet (Norv*90 Tab*1 Sig: TAKE 1 TABLET BY MOUTHEVERY DAY IN THE MORNINGAuthorizing Provider: MAGALIE ARREDONDO User: GLYNN MOJICA Lisinopril 40 MG Oral Tablet 90 Tab*1 Sig: TAKE 1 TABLET BY MOUTH EVERY DAY IN THE MORNINGAuthorizing Provider: MAGALIE ARREDONDO User: GLYNN MOJICA documented in this encounter Plan of Treatment Upcoming Encounters Date Type Department Care Team (Late st Contact Info) Description 07/03/2023 10:20 AM EST Office Visit [facility] [place] [address] [address] Magalie Arredondo MD [address] [place] [address] Health Maintenance Due Date Last Done Comments DXA Scan 08/13/2021 08/14/2019, 09/03, 08/20/2012, Additional history exists COVID-19 Vaccine ( season) 2023 03/02/2022, 03/28/2021, 08/13/2020, Additional history exists Influenza Vaccine (FLU shot) (#1) 2023 03/01/2022, 03/05/2021, 02/14/2020, Additional history exists Depression Screening 03/01/2023 03/01/2022 GFR 11/30/2023 11/29/2022, 06/05, 10/21/2021, Additional history exists TSH 11/30/2023 11/29/2022, 06/05, 10/21/2021, Additional history exists Albumin/Creatinine Ratio 06/23/2025 06/23/2022 DTaP,Tdap,and Td Vaccines (3 - Td or Tdap) 10/11/2030 10/11/2020, 05/05/2015 Pneumococcal Vaccine: 65+ Years Completed 05/05/2015, 03/15/2011 *BISPHONATE OR OTHER ACCEPTABLE MEDICATION NEEDED FOR OSTEOPOROSIS (REFER TO SMARTSET #8070) Addressed 09/17/2017 (Declined) Overridden w ith the intention of not completing the topic VITAMIN D LEVEL ONCE IN A LIFETIME-USE SMARTSET# 97591 Completed 09/20/2017 Zoster Vaccines Completed 12/13/2020, 10/02, 08/05/2011 GARDASIL-HPV IMMUNIZATION SERIES Aged Out No longer eligible based on patient's age to complete this topic Hepatitis B Aged Out No longer eligi ble based on patient's age to complete this topic MENINGOCOCCAL (MENACTRA/MENVEO) Aged Out No longer eligible based on patient's age to complete this topic documented as of this encounter Medical Devices Implanted Type Area Furnace Cleaner Device Identifier Shelf Expiration Date Model / Serial / Lot Lens Intraoc 20.0 - [id number] - [id number] Implanted:Qty: 1 on 02/15/2021 by Ben Patel MD at OR [facility] Left: Eye [employer]OM[employer] 11/01/2025 [id number] / [id number] / [id number] Lens Intraoc 19.5 - [id number] - [id number] Implanted:Qty: 1 on 02/22/2021 by Ben Patel MD at OR [facility] Right: Eye [employer]CH [employer] LOMB 10/01/2025 [id number] / [id number] / [id number] documented as of this encounter Visit Diagnoses Diagnosis Hypertension, goal below 150/90 documented in this encounter Care Teams Dust Puller Relationship Specialty Start Date End Date Magalie Arredondo MD [address], [place] [id number] PCP - General Family Medicine 02/28/22 documented as of this encounter
--- OUTSIDE RECORDS SUMMARY | 2023-04-13 13:57 | External Medical Summary | Summary of Care ---
Author Name Unknown Organization [facility] Address [address] [place] [address] Phone [phone] Care Team Providers Care Clinic Md Associate Name Role Phone Azucena Hernández MD Primary Care Provid er Encounter Details Date Type Department Care Team Description 03/12/2023 Telephone [facility] [place] [address] [place] [place] [address] Azucena Hernández MD [address] [place] [address] Allergies Active Allergy Reactions Severity Noted Date Comments Adhesive Tape High 07/19/2022 Other reaction(s): bandaids- redness, pruritus Latex Other (Please comment),Rash 11/16/2009 Sensitivity to latex; okay to use exam gloves Penicillins Other (Please comment) 11/16/2009 Mouth sores documented as of this encounter (statuses as of 03/12/2023) Medications Medication Sig Dispensed Refills Start Date [...] Capsule by mouth. 1 daily 0 Active clotrimazole-betamet hasone (LOTRISONE) 1-0.05 % cream Apply topically to [...] 0 Active Atenolol 50 MG Oral Tablet (Tenormin)Indication s:Hypertension, goal below 150/90 Take by mouth 1 [...] 09/21/2022 Active Famotidine 20 MG Oral Tablet (Pepcid)Indications: Gastroesophageal reflux disease without esophagitis TAKE 1 TABLET BY MOUTH EVERY DAY IN THE MORNING 90 Tablet 1 09/21/2022 Active Levothyroxine Sodium 125 MCG Oral Tablet (Levoxyl)Indications :Acquired hypothyroidism Take 1 Tablet by mouth daily first thing in the morning. (at least 30 min prior to breakfast or other meds) 90 Tablet 3 12/04/2022 Active Hyoscyamine Sulfate 0.125 MG Sublingual Tablet Sublingual (Levsin)Indications: Irritable bowel syndrome, unspecified type 1 TABLET EVERY 4 HOURS NEEDED FOR ABDOMINAL PAIN 540 Tablet 1 02/21/2023 Active documented as of this encounter (statuses as of 03/12/2023) Active Problems Problem Noted Date Diverticulitis 09/22/2022 [...] as of this encounter (statuses as of 03/12/2023) Resolved Problems Problem Noted Date Resolved Date ADVANCE DIRECTIVE INFORMATION 02/02/2010 Overview: Gave advance directive booklet/info. Malignant neoplasm of lower-outer quadrant of fe male breast 12/14/2009 09/17/2017 documented as of this encounter (statuses as of 03/12/2023) Immunizations Name Administration Dates Next Due COVID-19 mRNA, LNP-s, No Pre serve, 2-Dose Series ([employer]) 03/28/2021,08/13/2020,07/23/2020 Covid-19, Mrna, Lnp-s, Pf, B ivalent, 30 Mcg, IM, 12 yrs and above (Pfizer) 03/02/2022 Pneumococcal Conjugate Vacc, 13 Valent (Prevnar) [...] encounter Miscellaneous Notes * Telephone Encounter - Azucena Hernández MD - 03/12/2023 11:31 AM EDT Handicap placard requested H/o severe polyarthralgia and hip replacements documented in this encounter Plan of Treatment Upcoming Encounters Date Type Specialty Care Team Description 07/03/2023 Office Visit Family Medicine Azucena Hernández MD [address] [place] [address] Health Maintenance Due Date Last Done Comments [...] D LEVEL ONCE IN A LIFETIME-USE SMARTSET# 57947 Completed 09/20/2017 Zoster Vaccines Completed 12/13/2020, 10/02, [...] this encounter Medical Devices Implanted Type Area Cutter Woodwind Reeds Device Identifier Shelf Expiration Date Model / Serial / Lot Lens Intraoc 20.0 - [id number] - [id number] Implanted:Qty: 1 on 02/15/2021 by Ben Patel MD at OR [facility] Left: Eye BAUSCH & LOMB 11/01/2025 [id number] / [id number] / [id number] Lens Intraoc 19.5 - [id number] - [id number] Implanted:Qty: 1 on 02/22/2021 by Ben Patel MD at OR [facility] Right: Eye BAUSCH & LOMB 10/01/2025 [id number] / [id number] / [id number] documented as of this encounter Care Teams Clinic Md Associate Relationship Specialty Start Date End Date Azucena Hernández MD [address] [place] [address] PCP - General Family Medicine 02/28/22 documented as of this encounter
--- OUTSIDE RECORDS SUMMARY | 2023-04-13 13:57 | External Medical Summary | Summary of Care ---
Author Name Unknown Organization [facility] Address [address] [place] [address] Phone [phone] Care Team Providers Care Unix Consultant Name Role Phone Magalie Arredondo MD Primary Care Provid er Encounter Details Date Type Department Care Team Description 02/19/2023 Refill [facility] [address] [place] [address] Magalie Arredondo MD [address] [place] [address] Irritable bowel syndrome, unspecified type Allergies Active Allergy Reactions Severity Noted Date Comments Adhesive Tape High 07/19/2022 Other reaction(s): bandaids- redness, pruritus Latex Other (Please comment),Rash 11/16/2009 Sensitivity to latex; okay to use exam gloves Penicillins Other (Please comment) 11/16/2009 Mouth sores documented as of this encounter (statuses as of 02/21/2023) Medications Medication Sig Dispensed Refills Start Date [...] ABDOMINAL PAIN 540 Tablet 1 02/21/2023 Active Hyoscyamine Sulfate 0.125 MG Sublingual Tablet Sublingual (Levsin)Indications :Irritable bowel syndrome, unspecified type 1 TABLET EVERY 4 HOURS NEEDED FOR ABDOMINAL PAIN 90 Tablet 1 02/06/2023 3 Discontinu ed(Refill) documented as of this encounter (statuses as of 02/21/2023) Active Problems Problem Noted Date Diverticulitis 09/22/2022 [...] as of this encounter (statuses as of 02/21/2023) Resolved Problems Problem Noted Date Resolved Date ADVANCE DIRECTIVE INFORMATION 02/02/2010 Overview: Gave advance directive booklet/info. Malignant neoplasm of lower-outer quadrant of fe male breast 12/14/2009 09/17/2017 documented as of this encounter (statuses as of 02/21/2023) Immunizations Name Administration Dates Next Due COVID-19 mRNA, LNP-s, No Pre serve, 2-Dose Series ([employer]) 03/28/2021,08/13/2020,07/23/2020 Covid-19, Mrna, Lnp-s, Pf, B ivalent, [...] Telephone Encounter - Magalie Arredondo MD - 02/21/2023 8:13 AM EDT Signed Prescriptions: Disp Refills Hyoscyamine Sulfate 0.125 MG Sublingual Ta*540 Ta*1 Si TABLET EVERY 4 HOURS NEEDED FOR ABDOMINAL PAINAuthorizing Provider: MAGALIE ARREDONDO documented in this encounter Plan of Treatment Upcoming Encounters Date Type Specialty Care Team Description 07/03/2023 Office Visit Family Medicine Magalie Arredondo MD [facility] [place] [place] [address] Health Maintenance Due Date Last Done Comments DXA Scan 08/13/2021 08/14/2019, /12/2015, 08/20/2012, Additional history exists Influenza Vaccine (FLU [...] D LEVEL ONCE IN A LIFETIME-USE SMARTSET# 62062 Completed 09/20/2017 Zoster Vaccines Completed 12/13/2020, 10/02, [...] this encounter Medical Devices Implanted Type Area Concrete Truck Driver Device Identifier Shelf Expiration Date Model / Serial / Lot Lens Intraoc 20.0 - [id number] - [id number] Implanted:Qty: 1 on 02/15/2021 by Ben Patel MD at OR [facility] Left: Eye BAUSCH & LOMB 11/01/2025 [id number] / [id number] / [id number] Lens Intraoc 19.5 - [id number] - [id number] Implanted:Qty: 1 on 02/22/2021 by Ben Patel MD at OR [facility] Right: Eye BAUSCH & LOMB 10/01/2025 [id number] / [id number] / [id number] documented as of this encounter Visit Diagnoses Diagnosis Irritable bowel syndrome, unspecified type documented in this encounter Care Teams Unix Consultant Relationship Specialty Start Date End Date Magalie Arredondo MD [address] [place] [phone] PCP - General Family Medicine 02/28/22 documented as of this encounter
--- OUTSIDE RECORDS SUMMARY | 2023-04-13 13:57 | External Medical Summary | Summary of Care ---
Author Name Unknown Organization [facility] Address [address] [place] [address] Phone [phone] Care Team Providers Care Measurement Technician Name Role Phone Azucena Hernández MD Primary Care Provid er Encounter Details Date Type Department Care Team Description 01/09/[address] [facility] [address] [place] [address] Azucena Hernández MD [address] [place] [address] Allergies Active Allergy Reactions Severity Noted Date Comments Adhesive Tape High 07/19/2022 Other reaction(s): bandaids- redness, pruritus Latex Other (Please comment),Rash 11/16/2009 Sensitivity to latex; okay to use exam gloves Penicillins Other (Please comment) 11/16/2009 Mouth sores documented as of this encounter (statuses as of 01/09/2023) Medications Medication Sig Dispensed Refills Start Date [...] Capsule by mouth. 1 daily 0 Active clotrimazole-betameth asone (LOTRISONE) 1-0.05 % cream Apply topically to [...] tabs every 8-12 hours prn 0 Active Hyoscyamine Sulfate 0.125 MG Sublingual Tablet Sublingual (Levsin)Indications:I rritable bowel syndrome, unspecified type 1 TABLET EVERY 4 HOURS NEEDED FOR ABDOMINAL PAIN 90 Tablet 1 04/14/2021 Active Atenolol 50 MG Oral Tablet (Tenormin)Indications :Hypertension, goal below 150/90 Take by mouth 1 [...] 09/21/2022 Active Famotidine 20 MG Oral Tablet (Pepcid)Indications:G astroesophageal reflux disease without esophagitis TAKE 1 TABLET BY MOUTH EVERY DAY IN THE MORNING 90 Tablet 1 09/21/2022 Active Levothyroxine Sodium 125 MCG Oral Tablet (Levoxyl)Indications: Acquired hypothyroidism Take 1 Tablet by mouth daily first thing in the morning. (at least 30 min prior to breakfast or other meds) 90 Tablet 3 12/04/2022 Active documented as of this encounter (statuses as of 01/09/2023) Active Problems Problem Noted Date Diverticulitis 09/22/2022 [...] as of this encounter (statuses as of 01/09/2023) Resolved Problems Problem Noted Date Resolved Date ADVANCE DIRECTIVE INFORMATION 02/02/2010 Overview: Gave advance directive booklet/info. Malignant neoplasm of lower-outer quadrant of fe male breast 12/14/2009 09/17/2017 documented as of this encounter (statuses as of 01/09/2023) Immunizations Name Administration Dates Next Due COVID-19 mRNA, LNP-s, No Pre serve, 2-Dose Series ([employer]) 03/28/2021,08/13/2020,07/23/2020 Covid-19, Mrna, Lnp-s, Pf, B ivalent, 30 Mcg, IM, 12 yrs and above (Pfizer) 03/02/2022 Pneumococcal Conjugate Vacc, 13 Valent (Prevnar) 05/05/2015 Pneumococcal Polysaccharide PPV23 (Pneumovax) 03/15/2011 Seasonal Influenza, Quadriva lent Hd (Fluzone Hd) 03/01/2022,03/05/2021 Seasonal Influenza, Quadriva lent, No Preserve, 6 Mons & Above, IM 02/14/2020,03/04/2019,03/15/2018,02/22 Seasonal Influenza, Quadriva lent, No Preserve, IM [...] on file documented as of this encounter Plan of Treatment Upcoming Encounters Date Type Specialty Care Team Description 07/03/2023 Office Visit Family Medicine Azucena Hernández MD [address] [address] Pending Results Name Type Priority Associated Diagnoses Date /Time MAMMOGRAM SCREENING BILATERAL Medical Imaging Routine 01/08/2023 Health Maintenance Due Date Last Done Comments [...] MEDICATION NEEDED FOR OSTEOPOROSIS (REFER TO SMARTSET #2090) Addressed 09/17/2017 (Declined) Overridden w ith the intention of not completing the topic VITAMIN D LEVEL ONCE IN A LIFETIME-USE SMARTSET# 85204 Completed 09/20/2017 Zoster Vaccines Completed 12/13/2020, 10/02, [...] this encounter Medical Devices Implanted Type Area Day Care Aide Device Identifier Shelf Expiration Date Model / Serial / Lot Lens Intraoc 20.0 - [id number] - [id number] Implanted:Qty: 1 on 02/15/2021 by Ben Patel MD at OR [facility] Left: Eye BAUSCH & LOMB 11/01/2025 [id number] / [id number] / [id number] Lens Intraoc 19.5 - [id number] - [id number] Implanted:Qty: 1 on 02/22/2021 by Ben Patel MD at OR [facility] Right: Eye BAUSCH & LOMB 10/01/2025 [id number] / [id number] / [id number] documented as of this encounter Care Teams Measurement Technician Relationship Specialty Start Date End Date Azucena Hernández MD [address] [place] [id number] PCP - General Family Medicine 02/28/22 documented as of this encounter
--- OUTSIDE RECORDS SUMMARY | 2023-04-13 13:58 | External Medical Summary ---
Author Name Unknown Address Unknown Organization [id number]:LABORATORY [facility] - [address] [place] [address] Laboratory Report Ordering Provider Test Date Status ARNULFO MEJIAS 11/29/2022 11:34:49 Final Observation Date Value Abnormality Reference (Units ) Status T4, Free 11/29/2022 11:34:49 2.0 Above high normal 0. 9-1.7 (ng/dL) Final Performing Location LABORATORY [facility] - [address] [place] [address]
--- OUTSIDE RECORDS SUMMARY | 2023-04-13 13:58 | External Medical Summary | Summary of Care ---
Author Name Unknown Organization [facility] Address [address] [facility] [place] [address] Phone [phone] Care Team Providers Care Assortment Planner Name Role Phone Azucena Hernández MD Primary Care Provid er Reason for Visit * Reason Onset Date Comments Test Results 12/18/2022 Encounter Details Date Type Department Care Team Description 12/18/2022 Telephone Family Practice [facility] [address] [place] [address] Camelia Lewis DO [address] [place] [address] Test Results (/) Allergies Active Allergy Reactions Severity Noted Date Comments Adhesive Tape High 07/19/2022 Other reaction(s): bandaids- redness, pruritus Latex Other (Please comment),Rash 11/16/2009 Sensitivity to latex; okay to use exam gloves Penicillins Other (Please comment) 11/16/2009 Mouth sores documented as of this encounter (statuses as of 12/18/2022) Medications Medication Sig Dispensed Refills Start Date [...] as of this encounter (statuses as of 12/18/2022) Active Problems Problem Noted Date Diverticulitis 09/22/2022 [...] as of this encounter (statuses as of 12/18/2022) Resolved Problems Problem Noted Date Resolved Date ADVANCE DIRECTIVE INFORMATION 02/02/2010 Overview: Gave advance directive booklet/info. Malignant neoplasm of lower-outer quadrant of fe male breast 12/14/2009 09/17/2017 documented as of this encounter (statuses as of 12/18/2022) Immunizations Name Administration Dates Next Due COVID-19 mRNA, LNP-s, No Pre serve, 2-Dose Series ([employer]) 03/28/2021,08/13/2020,07/23/2020 Covid-19, Mrna, Lnp-s, Pf, B ivalent, [...] encounter Miscellaneous Notes * Telephone Encounter - Lynn Aguilar LPN - 12/18/2022 3:24 PM EDT Pt called and aware of message below. * Telephone Encounter - Camelia Lewis DO - 12/18/2022 1:39 PM EDT No acute abnormalities noted on CT scan Pt to continue care with PCP Thank you documented in this encounter Plan of Treatment Upcoming Encounters Date Type Specialty Care Team Description 12/26/2022 Office Visit Family Medicine Azucena Hernández MD [address] [place] [address] Health Maintenance Due Date Last Done Comments [...] D LEVEL ONCE IN A LIFETIME-USE SMARTSET# 75826 Completed 09/20/2017 Zoster Vaccines Completed 12/13/2020, 10/02, [...] this encounter Medical Devices Implanted Type Area Black Top Spreader Machine Operator Device Identifier Shelf Expiration Date Model / Serial / Lot Lens Intraoc 20.0 - [id number] - [id number] Implanted:Qty: 1 on 02/15/2021 by Ben Patel MD at OR [facility] Left: Eye BAUSCH & LOMB 11/01/2025 [id number] / [id number] / [id number] Lens Intraoc 19.5 - [id number] - [id number] Implanted:Qty: 1 on 02/22/2021 by Ben Patel MD at OR [facility] Right: Eye BAUSCH & LOMB 10/01/2025 [id number] / [id number] / [id number] documented as of this encounter Care Teams Assortment Planner Relationship Specialty Start Date End Date Azucena Hernández MD [address] [place] [phone] PCP - General Family Medicine 02/28/22 documented as of this encounter
--- OUTSIDE RECORDS SUMMARY | 2023-04-13 13:58 | External Medical Summary | Summary of Care ---
Author Name Unknown Organization [facility] Address [address] [facility] [place] [address] Phone [phone] Care Team Providers Care Multicut Line Operator Name Role Phone Azucena Hernández MD Primary Care Provid er Reason for Visit * Reason Onset Date Comments Test Results 11/30/2022 Encounter Details Date Type Department Care Team Description 11/30/[address] [facility] [address] [facility] [place] [address] Camelia Lewis DO [address] [facility] [place] [address] Test Results (/) Allergies Active Allergy Reactions Severity Noted Date Comments Adhesive Tape High 07/19/2022 Other reaction(s): bandaids- redness, pruritus Latex Other (Please comment),Rash 11/16/2009 Sensitivity to latex; okay to use exam gloves Penicillins Other (Please comment) 11/16/2009 Mouth sores documented as of this encounter (statuses as of 11/30/2022) Medications Medication Sig Dispensed Refills Start Date [...] 90 Tablet 1 09/21/2022 Active Levothyroxine Sodium 137 MCG Oral TabletIndications:Acq uired hypothyroidism TAKE 1 TABLET BY MOUTH DAILY FIRST THING IN THE MORNING. (AT LEAST 30 MIN PRIOR TO BREAKFAST OR OTHER MEDS) 90 Tablet 1 10/10/2022 Active documented as of this encounter (statuses as of 11/30/2022) Active Problems Problem Noted Date Diverticulitis 09/22/2022 [...] as of this encounter (statuses as of 11/30/2022) Resolved Problems Problem Noted Date Resolved Date ADVANCE DIRECTIVE INFORMATION 02/02/2010 Overview: Gave advance directive booklet/info. Malignant neoplasm of lower-outer quadrant of fe male breast 12/14/2009 09/17/2017 documented as of this encounter (statuses as of 11/30/2022) Immunizations Name Administration Dates Next Due COVID-19 mRNA, LNP-s, No Pre serve, 2-Dose Series ([email or web address]) 03/28/2021,08/13/2020,07/23/2020 Covid-19, Mrna, Lnp-s, Pf, B ivalent, [...] Telephone Encounter - Lynn Aguilar LPN - 11/30/2022 3:47 PM EDT Pt called and aware of message below and will f/u with her PCP. Pt said she is taking a calcium supplement. * Telephone Encounter - Lynn Aguilar LPN - 11/30/2022 1:36 PM EDT Called home number and no answer at this time, will try later. * Telephone Encounter - Camelia Lewis DO - 11/30/2022 11:56 AM EDT Please call pt No acute abnormalities on labs Mild elevation in calcium - PCP can follow up on this Thank you documented in this encounter Plan of Treatment Upcoming Encounters Date Type Specialty Care Team Description 12/15/2022 Imaging Radiology 12/26/2022 Office Visit Family Medicine Azucena Hernández MD [address] [place] [facility] [place] [address] Health Maintenance Due Date Last Done Comments Hepatitis C Screening 1963 DXA Scan 08/13/2021 08/14/2019, 09/03, 08/20/2012, Additional history exists Depression Screening, Annual for [...] D LEVEL ONCE IN A LIFETIME-USE SMARTSET# 16457 Completed 09/20/2017 Zoster Vaccines Completed 12/13/2020, 10/02, 08/05/2011 Influenza Vaccine (FLU shot) Completed 03/01/2022, 03/05/2021, 02/14/2020, Additional history exists COVID-19 Vaccine Completed 03/02/2022, , 08/13/2020, Additional [...] this encounter Medical Devices Implanted Type Area Applications Coordinator Device Identifier Shelf Expiration Date Model / Serial / Lot Lens Intraoc 20.0 - [id number] - [id number] Implanted:Qty: 1 on 02/15/2021 by Ben Patel MD at OR [facility] Left: Eye BAUSCH & LOMB 11/01/2025 [id number] / [id number] / [id number] Lens Intraoc 19.5 - [id number] - [id number] Implanted:Qty: 1 on 02/22/2021 by AmandaBen pérez MD at OR [facility] Right: Eye BAUSCH & LOMB 10/01/2025 [id number] / [id number] / [id number] documented as of this encounter Additional Health Concerns Infection Onset Date Last Indicated Resolved Time C. difficile Rule-Out 11/30/2022 11/30/20222022 2:51 PM EDT Gastrointestinal Rule-Out 11/30/2022 11/30/2022 documented as of this encounter Care Teams Multicut Line Operator Relationship Specialty Start Date End Date Azucena Hernández MD [address] [place] [address] PCP - General Family Medicine 02/28/22 documented as of this encounter
--- OUTSIDE RECORDS SUMMARY | 2023-04-13 13:58 | External Medical Summary ---
Author Name Unknown Address Unknown Organization K01:LAB[facility]ATORY [facility] - [address] [place] [address] Laboratory Report Ordering Provider Test Date Status LUIS MOJICA 11/30/2022 10:16:17 Final Observation Date Value Abnormality Reference (Units) Status Source 11/30/2022 10:16:17 Semi-liquid Final Clostridioides difficile toxin and BI-[id number] strain DNA panel - Stool by CHRISTIN with probe detection 11/30/2022 10:16:17 Negative. No C. difficile toxin B gene DNA detected by PCR (Amplified Probe). Negative Final Performing Location LABORATORY [facility] - [address] [place] [address]
--- OUTSIDE RECORDS SUMMARY | 2023-04-13 13:58 | External Medical Summary ---
Author Name Unknown Address Unknown Organization K0G[facility] [address] [place] [address] Laboratory Report Ordering Provider Test Date Status LUIS MOJICA 11/29/2022 11:34:49 Final Observation Date Value Abnormality Reference (Units ) Status SYNC LEUKOCYTES IN BLOOD BY AUTOMATED COUNT 11/29/2022 11:34:49 9.28 4.00-10.80 (K/uL) Final Segs 11/29/2022 11:34:49 66.0 40.0-75.0 (%) Final Lymphs % 11/29/2022 11:34:49 24.6 18.0-42.0 (%) Final Monos 11/29/2022 11:34:49 8.0 1.0-11.0 (%) Final Eosinophils 11/29/2022 11:34:49 1.3 0.0-6.0 (%) Final Basos 11/29/2022 11:34:49 0.1 0.0-2.0 (%) Final Absolute Segs 11/29/2022 11:34:49 6.13 1.80-7.70 (K/uL) Final Lymphs, absolute 11/29/2022 11:34:49 2.28 1.00-4.80 (K/ul) Final Monos, Abs 11/29/2022 11:34:49 0.74 0.00-1.10 (K/uL) Final Eos, Abs 11/29/2022 11:34:49 0.12 0.00-0.70 (K/uL) Final Basos, Abs 11/29/2022 11:34:49 0.01 0.00-0.20 (K/uL) Final Performing Location LABORATORY [facility] [[email or web address]] [place] [address] [place] [address]
--- OUTSIDE RECORDS SUMMARY | 2023-04-13 13:58 | External Medical Summary | Summary of Care ---
Author Name Unknown Organization [facility] Address [address] [place] [address] Phone [phone] Care Team Providers Care Assembler Insulator Name Role Phone Azucena Hernández MD Primary Care Provid er Reason for Visit * Reason Comments Re-Check 6 month return Encounter Details Date Type Department Care Team Description 12/26/2022 Office Visit [facility] [address] [place] [address] Azucena Hernández MD [address] [place] [address] Acquired hypothyroidism*; Dyslipidemia; Pancreatic lesion; Hypertension, goal below 150/90; Gastroesophageal reflux disease without esophagitis; Senile osteoporosis; Encounter for hepatitis C screening test for low risk patient Allergies Active Allergy Reactions Severity Noted Date Comments Adhesive Tape High 07/19/2022 Other reaction(s): bandaids- redness, pruritus Latex Other (Please comment),Rash 11/16/2009 Sensitivity to latex; okay to use exam gloves Penicillins Other (Please comment) 11/16/2009 Mouth sores documented as of this encounter (statuses as of 12/26/2022) Medications Medication Sig Dispensed Refills Start Date [...] as of this encounter (statuses as of 12/26/2022) Active Problems Problem Noted Date Diverticulitis 09/22/2022 [...] as of this encounter (statuses as of 12/26/2022) Resolved Problems Problem Noted Date Resolved Date ADVANCE DIRECTIVE INFORMATION 02/02/2010 Overview: Gave advance directive booklet/info. Malignant neoplasm of lower-outer quadrant of fe male breast 12/14/2009 09/17/2017 documented as of this encounter (statuses as of 12/26/2022) Immunizations Name Administration Dates Next Due COVID-19 mRNA, LNP-s, No Pre serve, 2-Dose Series (RECESS.) 03/28/2021,08/13/2020,07/23/2020 Covid-19, Mrna, Lnp-s, Pf, B ivalent, [...] Cigarettes Q uit: 06/04/1967 Smokeless Tobacco: Never Tobacco Cessation:Counseling Given: Not Answered Comments:Quit 1967 Alcohol Use Standard Drinks/Week Comments [...] on file documented as of this encounter Last Filed Vital Signs Vital Sign Reading Time Taken Comments Blood Pressure 148/78 12/26/2022 10:15 AM EDT Pulse - - Temperature 36.2 C (97.1 F) 12/26/2022 10:15 AM E DT Respiratory Rate 16 12/26/2022 10:15 AM EDT Oxygen Saturation - - Inhaled Oxygen Concentration - - Weight 82.3 kg (181 lb 8 oz) 12/26/2022 10:15 AM EDT Height 162.6 cm (5' 4") 12/26/2022 10:15 AM EDT Body Mass Index 31.15 12/26/2022 10:15 AM EDT documented in this encounter Progress Notes * Azucena Hernández MD - 12/26/2022 10:24 AM EDT ASSESSMENT / PLAN: Dennise Chandra is a 77 year old female with PMHx hypothyroid / HTN / GERD / HLD / HTN / h/o breast ca - here for recheck HTN Well controlled Cont atenolol / amlodipine / lisinopril Recent GI illness, prolonged Self resolved Labs neg for c diff/ viral panel, CT a/p nonacute TSH borderline low - message sent to decrease thyroid med from 137 to 125 mcg daily. (Never read messg.) But she does appear to be taking the 125mcg dose. Extensive review of LOW FODMAP diet today, suspect IBS flare up as cause. HLD Well controlled Cont statin OA shoulder Tylenol PRN - 2 x 500mg tab every [address] Forbes Due for dexa - pt has historically declined If applicable Starting age 19: Screening for Cholesterol every five years beginning at 20 years of age, chlamydiafor sexually active women under 25 years of age, HIV Starting age 40: Screening for Cholesterol, diabetes, colorectal cancer beginning at 50 years, HIV Acquired hypothyroidism (Primary) - TSH WITH FREE T4 IF INDICATED; Future; Expected date: 06/28/2023 Dyslipidemia - COMPREHENSIVE METABOLIC PANEL; Future; Expected date: 06/28/2023 Pancreatic lesion Hypertension, goal below 150/90 - COMPREHENSIVE METABOLIC PANEL; Future; Expected date: 06/28/2023 - ALBUMIN / CREATININE RATIO, URINE; Future; Expected date: 06/28/2023 Gastroesophageal reflux disease without esophagitis Senile osteoporosis Encounter for hepatitis C screening test for low risk patient - HEPATITIS C ANTIBODY SCREEN WITH PROGRESSION TO HEPATITIS C RNA QUANTITATIVE; Future; Expected date: 06/28/2023 If needed, prefers contact by: Ok to leave message on phone: SUBJECTIVE: Nursing Notes: [facility]26[facility]22 1018 Signed Dennise Chandra is a 77 year old female who presents today for Chief Complaint Patient presents with Re-Check 6 month return HPI: Dennise Chandra is a 77 year old female. Here for recheck. Stomach is much better. She is unsure what caused her IBS flare up. Adherent with meds. Has appt today with ortho (dr. Forbes) to talk about shoulder replacement. Takes tylenol as directed. No nsaids bc of stomach upste. Latest Reference Range & Units 11/29/22 11:34 Triglycerides <=174 mg/dL 76 Cholesterol <200 mg/dL 145 Non-HDL Cholesterol <=159 mg/dL 78 HDL Cholesterol >49 mg/dL 67 LDL Cholesterol <=129 mg/dL 63 Sodium 135 - 146 mmol/L 139 Potassium 3.5 - 5.1 mmol/L 4.5 Chloride 98 - 107 mmol/L 101 CO2 22 - 32 mmol/L 26 BUN 6 - 20 mg/dL 14 Creatinine 0.5 - 1.0 mg/dL 0.8 Estimated Glomerular Filtration Rate >=60 mL/min 73 Anion Gap 7 - 15 mmol/L 12 Glucose 70 - 120 mg/dL 101 Calcium 8.4 - 10.2 mg/dL 10.3 (H) Protein 6.0 - 8.3 g/dL 7.5 Lipase 13 - 60 U/L 35 TSH 0.27 - 4.20 uIU/mL 0.23 (L) TSH WITH FREE T4 IF INDICATED Rpt ! T4, Free 0.9 - 1.7 ng/dL 2.0 (H) CBC Rpt CBC WITH WBC DIFFERENTIAL Rpt WBC 4.00 - 10.80 K/uL 9.28 HGB 12.0 - 15.3 g/dL 14.1 HCT 36.0 - 45.2 % 42.7 MCV 81.5 - 97.5 fL 92.8 PLT 140 - 400 K/uL 255 Absolute Neutrophils 1.80 - 7.70 K/uL 6.13 Absolute Lymphocytes 1.00 - 4.80 K/ul 2.28 Absolute Monocytes 0.00 - 1.10 K/uL 0.74 Absolute Eosinophils 0.00 - 0.70 K/uL 0.12 Absolute Basophils 0.00 - 0.20 K/uL 0.01 Albumin 3.8 - 5.0 g/dL 4.2 AST 10 - 35 U/L 22 ALT 10 - 35 U/L 24 Alkaline Phosphatase 35 - 130 U/L 103 Bilirubin, Total <=1.2 mg/dL 1.0 Patient Active Problem List Diagnosis Code Hypertension, goal below 150/90 I10 Hypothyroidism E03.9 Senile osteoporosis M81.0 Dyslipidemia E78.5 History of breast cancer Z85.3 Gastroesophageal reflux disease without esophagitis K21.9 Pancreatic lesion K86.9 Dilated cbd, acquired K83.8 Diverticulitis K57.92 H/O: hysterectomy Z90.710 Hammertoe of right foot M20.41 History of right hip replacement Z96.641 Malignant neoplasm of breast (HCC) C50.919 Osteoarthritis of right shoulder M19.011 Current Outpatient Medications Medication Sig Dispense Refill MULTIPLE VITAMINS PO TABS One daily GLUCOSAMINE CHONDROITIN COMPLX PO CAPS One twice a day CALCIUM 600 MG PO TABS Take 1 Tablet by mouth daily with dinner. ASPIRIN 81 MG PO TABS Take 1 Tablet by mouth at bedtime. Cholecalciferol (VITAMIN D) 400 UNITS Capsule Take 1 Capsule by mouth in the morning and 1 Capsule before bedtime. 30 Cap 11 clindamycin (CLEOCIN) 150 MG Capsule Take 4 pills 1 hour before dental appointment 4 Cap 2 clotrimazole-betamethasone (LOTRISONE) 1-0.05 % cream Apply topically to affected area 2 times a day. To affected area for 4 weeks, or until healed. 15 g 1 diphenhydrAMINE HCl 25 MG Oral Tablet (BENADRYL) Take 1 Tablet by mouth every 6 hours as neededfor Allergies. Ibuprofen 200 MG Oral Tablet (MOTRIN) Take 1 Tablet by mouth every 8 hours as needed for Pain. Take 1-2 tabs every 8-12 hours prn Hyoscyamine Sulfate 0.125 MG Sublingual Tablet Sublingual (Levsin) 1 TABLET EVERY 4 HOURS NEEDED FOR ABDOMINAL PAIN 90 Tablet 1 Atenolol 50 MG Oral Tablet (Tenormin) Take by mouth 1 Tablet in the morning. 90 Tablet 3 amLODIPine Besylate 5 MG Oral Tablet (Norvasc) TAKE 1 TABLET BY MOUTH EVERY DAY IN THE MORNING 90 Tablet 1 Lisinopril 40 MG Oral Tablet TAKE 1 TABLET BY MOUTH EVERY DAY IN THE MORNING 90 Tablet 1 Atorvastatin Calcium 40 MG Oral Tablet (Lipitor) TAKE 1 TABLET BY MOUTH EVERY DAY IN THE MORNING 90 Tablet 1 Famotidine 20 MG Oral Tablet (Pepcid) TAKE 1 TABLET BY MOUTH EVERY DAY IN THE MORNING 90 Tablet1 Levothyroxine Sodium 125 MCG Oral Tablet (Levoxyl) Take 1 Tablet by mouth daily first thing in the morning. (at least 30 min prior to breakfast or other meds) 90 Tablet 3 Probiotic Product (PROBIOTIC ACIDOPHILUS) Capsule Take 1 Capsule by mouth. 1 daily (Patient nottaking: Reported on 12/26/2022) No current facility-administered medications for this visit. OBJECTIVE: BP 148/78 (BP Site: Right Arm, BP Position: Sitting, BP Cuff Size: Regular) | Temp 36.2 C (97.1 F) (Temporal Artery) | Resp 16 | Ht 1.626 m (5' 4") | Wt 82.3 kg (181 lb 8 oz) | BMI 31.15 kg/m |BSA 1.93 m Vitals reviewed and is normotensive / afebrile / and not tachycardic General: No acute distress. Neuro: Alert Pleasant & interactive. Respiratory: Good inspiratory effort, no labored breathing. CTAB CV: RRR no M R G Abd: soft nontender normoactive bs no hsm HEENT: Conjunctivae appear clear. No swelling noted face or lips. Skin: No rash visible on exposed skin areas, normal coloration & appears dry. Psych: Normal affect. Fluent speech. Azucena Hernández MD [place] [id number] [facility] [address] There are no Patient Instructions on file for this visit. documented in this encounter Nursing Notes * NERI Tony - 12/26/2022 10:15 AM EDT Dennise Chandra is a 77 year old female who presents today for Chief Complaint Patient presents with Re-Check 6 month return documented in this encounter Plan of Treatment Upcoming Encounters Date Type Specialty Care Team Description 07/03/2023 Office Visit Family [facility] Azucena Hernández MD [address], [place] [id number] Scheduled Orders Name Type Priority Associated Diagnoses Orde r Schedule COMPREHENSIVE METABOLIC PANEL Lab Routine Dyslipidemia Hypertension, goal below 150/90 Expected: 06/28/2023 (Approximate), Expires: 01/27/2024 ALBUMIN / CREATININE RATIO, URINE Lab Routine Hypertension, goal below 150/90 Expected: 06/28/2023 (Approximate), Expires: 01/27/2024 TSH WITH FREE T4 IF INDICATED Lab Routine Acquired hypothyroidism Expected: 06/28/2023 (Approximate), Expires: 01/27/2024 HEPATITIS C ANTIBODY SCREEN WITH PROGRESSION TO HEPATITIS C RNA QUANTITATIVE Lab Routine Encounter for hepatitis C screening test for low risk patient Expected: 06/28/2023 (Approximate), Expires: 01/27/2024 Health Maintenance Due Date Last Done Comments Hepatitis C Screening 1963 DXA Scan 08/13/2021 08/14/2019, 04/2 12/2015, 08/20/2012, Additional history exists Influenza Vaccine (FLU [...] D LEVEL ONCE IN A LIFETIME-USE SMARTSET# 35077 Completed 09/20/2017 Zoster Vaccines Completed 12/13/2020, 10/02, [...] this encounter Medical Devices Implanted Type Area Lute Packer Or Applier Device Identifier Shelf Expiration Date Model / Serial / Lot Lens Intraoc 20.0 - [id number] - [id number] Implanted:Qty: 1 on 02/15/2021 by Ben Patel MD at OR [facility] Left: Eye BAUSCH & LOMB 11/01/2025 [id number] / [id number] / [id number] Lens Intraoc 19.5 - [id number] - [id number] Implanted:Qty: 1 on 02/22/2021 by Ben Patel MD at OR [facility] Right: Eye BAUSCH & LOMB 10/01/2025 [id number] / [id number] / [id number] documented as of this encounter Visit Diagnoses Diagnosis Acquired hypothyroidism- Primary Unspecified hypothyroidism Dyslipidemia Other and unspecified hyperlipidemia Pancreatic lesion Unspecified disease of pancreas Hypertension, goal below 150/90 Gastroesophageal reflux disease without esophagitis Esophageal reflux Senile osteoporosis Encounter for hepatitis C screening test for low risk patient documented in this encounter Care Teams Assembler Insulator Relationship Specialty Start Date End Date Azucena Hernández MD [address] [place] [address] PCP - General Family Medicine 02/28/22 documented as of this encounter
--- OUTSIDE RECORDS SUMMARY | 2023-04-13 13:58 | External Medical Summary | Summary of Care ---
Author Name Unknown Organization [facility] Address [address] [facility] [place] [address] Phone [phone] Care Team Providers Care Registry Rn Name Role Phone Azucena Hernández MD Primary Care Provid er Reason for Visit * Reason Onset Date Comments Test Results 12/01/2022 Encounter Details Date Type Department Care Team Description 12/01/2022 Telephone Family Practice [facility] [address] [place] [address] Camelia Lewis DO [address] [place] [address] Test Results (/) Allergies Active Allergy Reactions Severity Noted Date Comments Adhesive Tape High 07/19/2022 Other reaction(s): bandaids- redness, pruritus Latex Other (Please comment),Rash 11/16/2009 Sensitivity to latex; okay to use exam gloves Penicillins Other (Please comment) 11/16/2009 Mouth sores documented as of this encounter (statuses as of 12/04/2022) Medications Medication Sig Dispensed Refills Start Date [...] 04/14/2021 Active Atenolol 50 MG Oral Tablet (Tenormin)Indicatio [...] THE MORNING 90 Tablet 1 09/21/2022 Active documented as of this encounter (statuses as of 12/04/2022) Active Problems Problem Noted Date Diverticulitis 09/22/2022 [...] as of this encounter (statuses as of 12/04/2022) Resolved Problems Problem Noted Date Resolved Date ADVANCE DIRECTIVE INFORMATION 02/02/2010 Overview: Gave advance directive booklet/info. Malignant neoplasm of lower-outer quadrant of fe male breast 12/14/2009 09/17/2017 documented as of this encounter (statuses as of 12/04/2022) Immunizations Name Administration Dates Next Due COVID-19 mRNA, LNP-s, No Pre serve, 2-Dose Series ([employer]um[employer]) 03/28/2021,08/13/2020,07/23/2020 Covid-19, Mrna, Lnp-s, Pf, B ivalent, 30 Mcg, IM, 12 yrs and above (Lumense) 03/02/2022 Pneumococcal Conjugate Vacc, 13 Valent (Prevnar) [...] encounter Miscellaneous Notes * Telephone Encounter - Camelia Lewis DO - 12/04/2022 4:59 PM EDT noted * Telephone Encounter - Lynn Aguilar LPN - 12/04/2022 4:47 PM EDT Called and pt and given message below, said she seems to be feeling better at this time. Will keep the apt for the CT scan. * Telephone Encounter - Lynn Aguilar LPN - 12/01/2022 2:05 PM EDT Called and no answer and no machine to leave message will try later. * Telephone Encounter - Camelia Lewis DO - 12/01/2022 1:27 PM EDT Stool studies so far negative Please continue with plan for CT scan How is she feeling? Thank you documented in this encounter Plan of Treatment Upcoming Encounters Date Type Specialty Care Team Description 12/15/2022 Imaging Radiology 12/26/2022 Office Visit Family Medicine Azucena Hernández MD [address] [place] [address] Health Maintenance Due Date Last Done Comments [...] MEDICATION NEEDED FOR OSTEOPOROSIS (REFER TO SMARTSET #1140) Addressed 09/17/2017 (Declined) Overridden w ith the intention of not completing the topic VITAMIN D LEVEL ONCE IN A LIFETIME-USE SMARTSET# 56031 Completed 09/20/2017 Zoster Vaccines Completed 12/13/2020, 10/02, [...] this encounter Medical Devices Implanted Type Area School Age Lead Teacher Device Identifier Shelf Expiration Date Model / Serial / Lot Lens Intraoc 20.0 - [id number] - [id number] Implanted:Qty: 1 on 02/15/2021 by Ben Patel MD at [facility] Left: Eye BAUSCH & LOMB 11/01/2025 [id number] / [id number] / [id number] Lens Intraoc 19.5 - [id number] - [id number] Implanted:Qty: 1 on 02/22/2021 by Ben Patel MD at OR [facility] Right: Eye BAUSCH & LOMB 10/01/2025 [id number] / [id number] / [id number] documented as of this encounter Additional Health Concerns Infection Onset Date Last Indicated Resolved Time Gastrointestinal Rule-Out 11/30/2022 11/30/2022 1:12 PM EDT documented as of this encounter Care Teams Registry Rn Relationship Specialty Start Date End Date Azucena Hernández MD [address] [place] [phone] PCP - General Family Medicine 02/28/22 documented as of this encounter
--- OUTSIDE RECORDS SUMMARY | 2023-04-13 13:58 | External Medical Summary | Summary of Care ---
Author Name Unknown Organization [facility] Address [address] [place] [address] Phone [phone] Care Team Providers Care Medical Records Clerk Name Role Phone Azucena Hernández MD Primary Care Provid er Encounter Details Date Type Department Care Team Description 12/04/[address] [facility] [place] [address] [facility] [place] [address] Azucena Hernández MD [address] [place] [address] Allergies Active Allergy Reactions Severity [...] other meds) 90 Tablet 3 12/04/2022 Active Levothyroxine Sodium 137 MCG Oral TabletIndications:A cquired hypothyroidism TAKE 1 TABLET BY MOUTH DAILY FIRST THING IN THE MORNING. (AT LEAST 30 MIN PRIOR TO BREAKFAST OR OTHER MEDS) 90 Tablet 1 10/10/2022 3 Discontinue d(Refill) documented as of this [...] mRNA, LNP-s, No Pre serve, 2-Dose Series ([employer]) 03/28/2021,08/13/2020,07/23/2020 Covid-19, Mrna, Lnp-s, Pf, B ivalent, [...] Telephone Encounter - Azucena Hernández MD - 12/04/2022 7:27 AM EDT See TSH result note Recommend decrease levothyroxine documented in this encounter Plan of Treatment Upcoming Encounters Date Type Specialty Care Team Description 12/15/2022 Imaging Radiology 12/26/2022 Office Visit Family Medicine Azucena Hernández MD [address] [place] [address] Scheduled Orders Name Type Priority Associated Diagnoses Orde r Schedule TSH WITH FREE T4 IF INDICATED Lab Routine Acquired hypothyroidism Expected: 02/04/2023 (Approximate), Expires: 12/04/2023 Health Maintenance Due Date Last Done Comments [...] D LEVEL ONCE IN A LIFETIME-USE SMARTSET# 29561 Completed 09/20/2017 Zoster Vaccines Completed 12/13/2020, 10/02, [...] this encounter Medical Devices Implanted Type Area Pony Rougher Device Identifier Shelf Expiration Date Model / Serial / Lot Lens Intraoc 20.0 - [id number] - [id number] Implanted:Qty: 1 on 02/15/2021 by Ben Patel MD at [facility] Left: Eye BAUSCH & LOMB 11/01/2025 [id number] / [id number] / [id number] Lens Intraoc 19.5 - [id number] - [id number] Implanted:Qty: 1 on 02/22/2021 by Ben Patel MD at OR [facility] Right: Eye BAUSCH & LOMB 10/01/2025 [id number] / [id number] / [id number] documented as of this encounter Visit Diagnoses Diagnosis Acquired hypothyroidism Unspecified hypothyroidism documented in this encounter Care Teams Medical Records Clerk Relationship Specialty Start Date End Date Azucena Hernández MD [address] [place] [address] PCP - General Family Medicine 02/28/22 documented as of this encounter
--- OUTSIDE RECORDS SUMMARY | 2023-04-13 13:58 | External Medical Summary | Summary of Care ---
Author Name Unknown Organization [facility] Address [address] [place] [address] Phone [phone] Care Team Providers Care Review Appraiser Name Role Phone Azucena Hernández MD Primary Care Provid er Reason for Visit * Reason Comments Outpatient Testing Encounter Details Date Type Department Care Team Description 11/30/2022 Laboratory Laboratory, [facility] [address] [place] [address] [facility] [address] [place] [address] Diarrhea, unspecified type; Generalized abdominal pain; Pancreatic lesion; Diverticulosis Allergies Active Allergy Reactions Severity Noted Date [...] mRNA, LNP-s, No Pre serve, 2-Dose Series ([employer]) 03/28/2021,08/13/2020,07/23/2020 Covid-19, Mrna, Lnp-s, Pf, B ivalent, [...] Family Medicine Azucena Hernández MD [address] [place] [address] Pending Results Name Type Priority Associated Diagnoses Date /Time CLOSTRIDIUM DIFFICILE, PCR Lab Routine Diarrhea, unspecified type Generalized abdominal pain Pancreatic lesion Diverticulosis 11/30/2022 10:16 AM EDT GASTROINTESTINAL PATHOGEN PANEL, STOOL Lab Routine Diarrhea, unspecified type Generalized abdominal pain Pancreatic lesion Diverticulosis 11/30/2022 10:17 AM EDT GASTROINTESTINAL PATHOGEN PANEL PCR Lab Routine Diarrhea, unspecified type Generalized abdominal pain Pancreatic lesion Diverticulosis 11/30/2022 10:17 AM EDT GASTROINTESTINAL PATHOGEN PANEL CULTURE Lab Routine Diarrhea, unspecified type Generalized abdominal pain Pancreatic lesion Diverticulosis 11/30/2022 10:17 AM EDT Health Maintenance Due Date Last Done Comments [...] D LEVEL ONCE IN A LIFETIME-USE SMARTSET# 77538 Completed 09/20/2017 Zoster Vaccines Completed 12/13/2020, 10/02, [...] this encounter Medical Devices Implanted Type Area Porcelain Finish Sprayer Device Identifier Shelf Expiration Date Model / Serial / Lot Lens Intraoc 20.0 - [id number] - [id number] Implanted:Qty: 1 on 02/15/2021 by Ben Patel MD at OR [facility] Left: Eye BAUSCH & LOMB 11/01/2025 [id number] / [id number] / [id number] Lens Intraoc 19.5 - [id number] - [id number] Implanted:Qty: 1 on 02/22/2021 by Ben Patel MD at OR [facility] Right: Eye BAUSCH & LOMB 10/01/2025 [id number] / [id number] / [id number] documented as of this encounter Visit Diagnoses Diagnosis Diarrhea, unspecified type Generalized abdominal pain Abdominal pain, generalized Pancreatic lesion Unspecified disease of pancreas Diverticulosis Diverticulosis of colon (without mention of hemorrhage) documented in this encounter Additional Health Concerns Infection Onset Date Last Indicated Resolved Time C. difficile Rule-Out 11/30/2022 11/30/2022 Gastrointestinal Rule-Out 11/30/2022 11/30/2022 documented as of this encounter Care Teams Review Appraiser Relationship Specialty Start Date End Date Azucena Hernández MD [address] [place] [address] PCP - General Family Medicine 02/28/22 documented as of this encounter
--- OUTSIDE RECORDS SUMMARY | 2023-04-13 13:58 | External Medical Summary | Summary of Care ---
Author Name Unknown Organization [facility] Address [address] [place] [address] Phone [phone] Care Team Providers Care Tentmaker Name Role Phone Azucena Hernández MD Primary Care Provid er Reason for Referral * Precert (Within 10 days (routine)) - Pending Review Specialty Diagnoses / Procedures Referred By Tom valencia Referred To Contact Radiology Diagnoses Diarrhea, unspecified type Generalized abdominal pain Pancreatic lesion Diverticulosis Procedures CT ABD/PELVIS W IV AND W ORAL CONTRAST Camelia Lewis DO [address] [place] [address] Referral ID Status Reason Start Date Expiration Date V isits Requested Visits Authorized [id number] Pending Review 11/29/2022 999 999 Reason for Visit * Reason Comments Acute Patient presents in office today for ongoing concerns for on/off diarrhea.Patient states this has been going on for a couple weeks now.Patient has IBS.Pain, Discomfort -- pain is there all the time, dull.Denies any blood in stool.When she does have diarrhea spells its about 8-10 times. Encounter Details Date Type Department Care Team Description 11/29/2022 Office Visit Family [facility] [address] [place] [address] Camelia Lewis DO [address] [place] [address] Diarrhea, unspecified type*; Generalized abdominal pain; Pancreatic lesion; Diverticulosis Allergies Active Allergy Reactions Severity Noted Date Comments Adhesive Tape High 07/19/2022 Other reaction(s): bandaids- redness, pruritus Latex Other (Please comment),Rash 11/16/2009 Sensitivity to latex; okay to use exam gloves Penicillins Other (Please comment) 11/16/2009 Mouth sores documented as of this encounter (statuses as of 11/29/2022) Medications Medication Sig Dispensed Refills Start Date [...] as of this encounter (statuses as of 11/29/2022) Active Problems Problem Noted Date Diverticulitis 09/22/2022 [...] as of this encounter (statuses as of 11/29/2022) Resolved Problems Problem Noted Date Resolved Date ADVANCE DIRECTIVE INFORMATION 02/02/2010 Overview: Gave advance directive booklet/info. Malignant neoplasm of lower-outer quadrant of fe male breast 12/14/2009 09/17/2017 documented as of this encounter (statuses as of 11/29/2022) Immunizations Name Administration Dates Next Due COVID-19 mRNA, LNP-s, No Pre serve, 2-Dose Series ([employer]) 03/28/2021,08/13/2020,07/23/2020 Covid-19, Mrna, Lnp-s, Pf, B ivalent, 30 Mcg, IM, 12 yrs and above ([employer]) 03/02/2022 Pneumococcal Conjugate Vacc, 13 Valent (Prevnar) [...] Sign Reading Time Taken Comments Blood Pressure 124/70 11/29/2022 10:57 AM EDT Pulse 76 11/29/2022 10:57 AM EDT Temperature - - Respiratory Rate 20 11/29/2022 10:57 AM EDT Oxygen Saturation - - Inhaled Oxygen Concentration - - Weight 81.4 kg (179 lb 6.4 oz) 11/29/2022 10:57 AM EDT Height 163.8 cm (5' 4.5") 11/29/2022 10:57 AM ED T Body Mass Index 30.32 11/29/2022 10:57 AM EDT documented in this encounter Progress Notes * Camelia Lewis DO - 11/29/2022 11:19 AM EDT Subjective: Dennise Chandra is a 77 year old female. Chief Complaint Patient presents with Acute Patient presents in office today for ongoing concerns for on/off diarrhea. Patient states this has been going on for a couple weeks now. Patient has IBS. Pain, Discomfort -- pain is there all the time, dull. Denies any blood in stool. When she does have diarrhea spells its about 8-10 times. Nursing Notes: Eleanor Reynolds, MED ASSIST 11/29/22 1054 Sign at exiting of workspace The patient has been properly identified by confirmation of name and date of . Chief Complaint Patient presents with Acute Patient presents in office today for ongoing concerns for on/off diarrhea. Patient states this has been going on for a couple weeks now. Patient has IBS. Pain, Discomfort -- pain is there all the time, dull. Denies any blood in stool. When she does have diarrhea spells its about 8-10 times. HPI: This is a 77 year old female with PMHx as below presents with acute illness Pain with eating No fevers September treated for presumed diverticulitis with cipro and flagyl Health Maintenance Due Topic Date Due Hepatitis C Screening Never done DXA Scan 08/13/2021 Patient Active Problem List Diagnosis Code Hypertension, [...] hour before dental appointment 4 Cap 2 Probiotic Product (PROBIOTIC ACIDOPHILUS) Capsule Take 1 Capsule by mouth. 1 daily clotrimazole-betamethasone (LOTRISONE) 1-0.05 % cream Apply topically [...] IN THE MORNING 90 Tablet1 Levothyroxine Sodium 137 MCG Oral Tablet TAKE 1 TABLET BY MOUTH DAILY FIRST THING IN THE MORNING. (AT LEAST 30 MIN PRIOR TO BREAKFAST OR OTHER MEDS) 90 Tablet 1 No current facility-administered medications for this visit. Past Medical History: Diagnosis Date Dyslipidemia Hypertension, goal below 150/90 Hypothyroidism Pulmonary embolism (HCC) After left knee replacement Past Surgical History: Procedure Laterality Date ARTHROPLASTY KNEE TOTAL 11/15/06 Left Knee replacement at [facility] - Dr. Rader CARPAL TUNNEL SURGERY 11/21/91 Right Carpal Tunnel repair at [facility] - Dr. Brown CARPAL TUNNEL SURGERY 11/23/93 Left Carpal Tunnel repair at [facility] - Dr. Brown COLONOSCOPY, DIAGNOSTIC (RECTUM) 06/22/2015 normal bx, diverticulosis/COLONOSCOPY FLEXIBLE PROXIMAL DIAGNOSTIC performed by Benedict Batres ENDOSCOPY [facility] EGD, FLEXIBLE, DIAGNOSTIC 11/13/2014 normal bx, HH/ESOPHAGOGASTRODUODENOSCOPY (EGD), FLEXIBLE, TRANSORAL, DIAGNOSTIC performed by Dl Moyer MD at ENDOSCOPY [facility] EGD, W/ENDOSCOPIC US 07/24/2018 CBD dilation, gastritis, hiatal hernia/ESOPHAGOGASTRODUODENOSCOPY (EGD), FLEXIBLE, TRANSORAL, ENDOSCOPIC ULTRASOUND performed by Dl Moyer MD at ENDOSCOPY [facility] ERCP 08/30/2018 dilated bile ducts / [facility] LAPAROSCOPY; CHOLECYSTECTOMY 12/23/99 at [facility] - Dr. Zamudio MASTECTOMY, PARTIAL 11/29/09 Right PM/SLNB at [facility] - Dr. Cruz RECONSTRUCT/REPLACE SHOULDER JOINT 03/28/2013 REMOVE CATARACT, INSERT LENS PROSTH Left 02/15/2021 left EXTRACAPSULAR CATARACT REMOVAL WITH INTRAOCULAR LENS performed by Ben Patel MD at [facility] REMOVE CATARACT, INSERT LENS PROSTH Right 02/22/2021 right EXTRACAPSULAR CATARACT REMOVAL WITH INTRAOCULAR LENS performed by Ben Patel MD at [facility] REPAIR INITIAL INGUINAL HERNIA REDUCIBLE AGE 5 OR MORE 08/01/02 RIH repair at [facility] - Dr. Levy TOTAL ABD HYSTERECTOMY W/WO REMOVAL OF TUBE(S) 11/18/96 at [facility] - Dr. Olivia US GUIDED BREAST BIOPSY 11/10/09 at [facility] ([facility]) Review of patient's allergies indicates: Allergen Reactions Adhesive Tape Other reaction(s): bandaids- redness, pruritus Latex Other (Please comment) and Rash Sensitivity to latex; okay to use exam gloves Penicillins Other (Please comment) Mouth sores Family History Problem Relation Age of Onset Cancer Brother Lung cancer Cancer Other Nephew (doesn't know what kind) Heart Disorder Brother Heart Disorder Brother Heart Disorder Brother Hypertension Mother Family Status Relation Status Bro Bro Bro Bro Alive Bro Alive Sis Alive Sis Bro (Not Specified) Other (Not Specified) Bro (Not Specified) Bro (Not Specified) Bro (Not Specified) Mo (Not Specified) Social History Socioeconomic History Marital status: Spouse name: Not on file Number of children: Not on file Years of education: Not on file Highest education level: Not on file Occupational History Not on file Tobacco Use Smoking status: Former Types: Cigarettes Quit date: 06/04/1967 Years since quittin.5 Smokeless tobacco: Never Tobacco comments: Quit 1967 Substance and Sexual Activity Alcohol use: No Drug use: No Sexual activity: Not on file Other Topics Concern Not on file Social History Narrative Not on file Social Determinants of Health Financial Resource Strain: Not on file Food Insecurity: Not on file Transportation Needs: Not on file Physical Activity: Not on file Stress: Not on file Social Connections: Not on file Intimate Partner Violence: Not on file Housing Stability: Not on file Review of Systems: As per HPI all other ROS negative. Wt Readings from Last 3 Encounters: 11/29/22 81.4 kg (179 lb 6.4 oz) 09/22/22 83 kg (183 lb) 06/23/22 83.9 kg (185 lb) Results for orders placed or performed in visit on 06/23/22 ERYTHROCYTE SEDIMENTATION RATE (ESR) Result Value Ref Range ESR 28 <30 mm/hour ALBUMIN / CREATININE RATIO, URINE Result Value Ref Range Albumin, Random Urine 1.36 mg/dL Creatinine, Random Urine 28 mg/dL Albumin / Creatinine Ratio, Urine 49 (H) <30 mg/g Creat BASIC METABOLIC PANEL Result Value Ref Range BUN 14 6 - 20 mg/dL Creatinine 0.7 0.5 - 1.0 mg/dL Estimated Glomerular Filtration Rate 88 >=60 mL/min Sodium 140 135 - 146 mmol/L Potassium 4.8 3.5 - 5.1 mmol/L Chloride 103 98 - 107 mmol/L CO2 28 22 - 32 mmol/L Anion Gap 9 7 - 15 mmol/L Glucose 108 70 - 120 mg/dL Calcium 10.0 8.4 - 10.2 mg/dL TSH WITH FREE T4 IF INDICATED Result Value Ref Range TSH 0.19 (L) 0.27 - 4.20 uIU/mL T4, FREE Result Value Ref Range T4, Free 1.8 (H) 0.9 - 1.7 ng/dL OBJECTIVE: Physical Exam: BP 124/70 | Pulse 76 | Resp 20 | Ht 1.638 m (5' 4.5") | Wt 81.4 kg (179 lb 6.4 oz) | BMI 30.32 kg/m | BSA 1.92 m General: alert, healthy and no distress Heart: regular rate & rhythm, no murmur and no gallops Lungs: lungs clear to auscultation Abdomen: abdomen soft, normal bowel sounds, no masses or organomegaly, no rebound or guarding, no CVA tenderness and mild generalized TTP Diarrhea, unspecified type (Primary) - CBC WITH WBC DIFFERENTIAL; Future; Expected date: 11/29/2022 - COMPREHENSIVE METABOLIC PANEL; Future; Expected date: 11/29/2022 - LIPASE; Future; Expected date: 11/29/2022 - GASTROINTESTINAL PATHOGEN PANEL, STOOL; Future; Expected date: 11/29/2022 - CLOSTRIDIUM DIFFICILE, PCR; Future; Expected date: 11/29/2022 - CT ABD/PELVIS W IV AND W ORAL CONTRAST Generalized abdominal pain - CBC WITH WBC DIFFERENTIAL; Future; Expected date: 11/29/2022 - COMPREHENSIVE METABOLIC PANEL; Future; Expected date: 11/29/2022 - LIPASE; Future; Expected date: 11/29/2022 - GASTROINTESTINAL PATHOGEN PANEL, STOOL; Future; Expected date: 11/29/2022 - CLOSTRIDIUM DIFFICILE, PCR; Future; Expected date: 11/29/2022 - CT ABD/PELVIS W IV AND W ORAL CONTRAST Pancreatic lesion - CBC WITH WBC DIFFERENTIAL; Future; Expected date: 11/29/2022 - COMPREHENSIVE METABOLIC PANEL; Future; Expected date: 11/29/2022 - LIPASE; Future; Expected date: 11/29/2022 - GASTROINTESTINAL PATHOGEN PANEL, STOOL; Future; Expected date: 11/29/2022 - CLOSTRIDIUM DIFFICILE, PCR; Future; Expected date: 11/29/2022 - CT ABD/PELVIS W IV AND W ORAL CONTRAST Diverticulosis - CBC WITH WBC DIFFERENTIAL; Future; Expected date: 11/29/2022 - COMPREHENSIVE METABOLIC PANEL; Future; Expected date: 11/29/2022 - LIPASE; Future; Expected date: 11/29/2022 - GASTROINTESTINAL PATHOGEN PANEL, STOOL; Future; Expected date: 11/29/2022 - CLOSTRIDIUM DIFFICILE, PCR; Future; Expected date: 11/29/2022 - CT ABD/PELVIS W IV AND W ORAL CONTRAST Camelia Lewis DO documented in this encounter Nursing Notes * LA Guajardo - 11/29/2022 10:53 AM EDT The patient has been properly identified by confirmation of name and date of . Chief Complaint Patient presents with Acute Patient presents in office today for ongoing concerns for on/off diarrhea. Patient states this has been going on for a couple weeks now. Patient has IBS. Pain, Discomfort -- pain is there all the time, dull. Denies any blood in stool. When she does have diarrhea spells its about 8-10 times. documented in this encounter Plan of Treatment Upcoming Encounters Date Type Specialty Care Team Description 12/15/2022 Imaging Radiology 12/26/2022 Office Visit Family Medicine Azucena Hernández MD [address] [place] [address] Pending Results Name Type Priority Associated Diagnoses Date /Time CBC WITH WBC DIFFERENTIAL Lab Routine Diarrhea, unspecified type Generalized abdominal pain Pancreatic lesion Diverticulosis 11/29/2022 11:34 AM EDT COMPREHENSIVE METABOLIC PANEL Lab Routine Diarrhea, unspecified type Generalized abdominal pain Pancreatic lesion Diverticulosis 11/29/2022 11:34 AM EDT LIPASE Lab Routine Diarrhea, unspecified type Generalized abdominal pain Pancreatic lesion Diverticulosis 11/29/2022 11:34 AM EDT Scheduled Orders Name Type Priority Associated Diagnoses Order Schedule CBC WITH WBC DIFFERENTIAL Lab Routine Diarrhea, unspecified type Generalized abdominal pain Pancreatic lesion Diverticulosis Expected: 11/29/2022 (Approximate), Expires: 11/30/2023 COMPREHENSIVE METABOLIC PANEL Lab Routine Diarrhea, unspecified type Generalized abdominal pain Pancreatic lesion Diverticulosis Expected: 11/29/2022 (Approximate), Expires: 11/29/2023 LIPASE Lab Routine Diarrhea, unspecified type Generalized abdominal pain Pancreatic lesion Diverticulosis Expected: 11/29/2022 (Approximate), Expires: 11/29/2023 GASTROINTESTINAL PATHOGEN PANEL, STOOL Lab Routine Diarrhea, unspecified type Generalized abdominal pain Pancreatic lesion Diverticulosis Expected: 11/29/2022 (Approximate), Expires: 11/29/2023 CLOSTRIDIUM DIFFICILE, PCR Lab Routine Diarrhea, unspecified type Generalized abdominal pain Pancreatic lesion Diverticulosis Expected: 11/29/2022 (Approximate), Expires: 11/29/2023 CT ABD/PELVIS W IV AND W ORAL CONTRAST Medical Imaging Routine Diarrhea, unspecified type Generalized abdominal pain Pancreatic lesion Diverticulosis Ordered: 11/29/2022 Health Maintenance Due Date Last Done Comments Hepatitis C Screening 1963 DXA Scan 08/13/2021 08/14/2019, 09/03, 08/20/2012, Additional history exists Depression Screening, Annual for Pts 12 and Over 03/01/2023 03/01/2022 GFR 06/23/2023 06/23/2022, 10/03, 03/16/2021, Additional history exists TSH 06/23/2023 06/23/2022, 10/03, 03/16/2021, Additional history exists Albumin/Creatinine Ratio 06/23/2025 06/23/2022 DTaP,Tdap,and Td Vaccines (3 - Td or Tdap) 10/11/2030 10/11/2020, 05/05/2015 Pneumococcal Vaccine: 65+ Years Completed 05/05/2015, 03/15/2011 *BISPHONATE OR OTHER ACCEPTABLE MEDICATION NEEDED FOR OSTEOPOROSIS (REFER TO SMARTSET #1146) Addressed 09/17/2017 (Declined) Overridden w ith the intention of not completing the topic VITAMIN D LEVEL ONCE IN A LIFETIME-USE SMARTSET# 91338 Completed 09/20/2017 Zoster Vaccines Completed 12/13/2020, 10/02, [...] this encounter Medical Devices Implanted Type Area Plant Technical Specialist Device Identifier Shelf Expiration Date Model / Serial / Lot Lens Intraoc 20.0 - [id number] - [id number] Implanted:Qty: 1 on 02/15/2021 by Ben Patel MD at [facility] Left: Eye [employer] 11/01/2025 [id number] / [id number] / [id number] Lens Intraoc 19.5 - [id number] - [id number] Implanted:Qty: 1 on 02/22/2021 by Ben Patel MD at [facility] Right: Eye [employer] 10/01/2025 [id number] / [id number] / [id number] documented as of this encounter Visit Diagnoses Diagnosis Diarrhea, unspecified type- Primary Generalized abdominal pain Abdominal pain, generalized Pancreatic lesion Unspecified disease of pancreas Diverticulosis Diverticulosis of colon (without mention of hemorrhage) documented in this encounter Care Teams Tentmaker Relationship Specialty Start Date End Date Azucena Hernández MD [address] [place] [address] PCP - General Family Medicine 02/28/22 documented as of this encounter
--- OUTSIDE RECORDS SUMMARY | 2023-04-13 13:58 | External Medical Summary ---
Author Name Unknown Address Unknown Organization [id number]:LABORATORY [facility] [place] - [address] [place] [address] Laboratory Report Ordering Provider Test Date Status LUIS MOJICA 11/30/2022 10:17:05 Final Observation Date Value Abnormality Reference (Units) Status Bacteria identified in Unspecified specimen by Culture 11/30/2022 10:17:05 No Aeromonas species or Plesiomonas species isolated. Final Test: Gastrointestinal Patho gen Panel Culture
Specimen Source: Stool
Specimen Type: Stool
Specimen Date: 11/30/2022 10:17 AM
Result Date: 12/03/2022 11:12 AM
Result Status: Final result
Resulting Lab: [facility] [place]
[address]
[place] [address]

CULTURE

No Aeromonas species or Plesiomonas species isolated.

null Performing Location LABORATORY [facility] [place] - [address] [place] [address]
--- OUTSIDE RECORDS SUMMARY | 2023-04-13 13:58 | External Medical Summary | Summary of Care ---
Author Name Unknown Organization [facility] Address [address] [facility] [address] Phone [phone] Care Team Providers Care Sheet Rock Hanger Name Role Phone Azucena Hernández MD Primary Care Provid er Reason for Visit * Reason Comments Outpatient Testing Encounter Details Date Type Department Care Team Description 11/29/2022 Laboratory Laboratory, [facility] [address] [facility] [address] [facility] [address] [place] [address] Acquired hypothyroidism; Dyslipidemia; Hypertension, goal below 150/90; Diarrhea, unspecified type; Generalized abdominal pain; Pancreatic [...] mRNA, LNP-s, No Pre serve, 2-Dose Series ([employer]) 03/28/2021,08/13/2020,07/23/2020 Covid-19, Mrna, Lnp-s, Pf, B ivalent, [...] Family Medicine Azucena Hernández MD [address] [place] [address] Pending Results Name Type Priority Associated Diagnoses Date /Time TSH WITH FREE T4 IF INDICATED Lab Routine Acquired hypothyroidism 11/29/2022 11:34 AM EDT LIPID PANEL WITH DIRECT LDL IF TG IS HIGH Lab Routine Dyslipidemia 11/29/2022 11:34 AM EDT CBC WITH WBC DIFFERENTIAL Lab Routine Diarrhea, unspecified type Generalized abdominal pain Pancreatic lesion Diverticulosis 11/29/2022 11:34 AM EDT COMPREHENSIVE METABOLIC PANEL Lab Routine Diarrhea, unspecified type Generalized abdominal pain Pancreatic lesion Diverticulosis 11/29/2022 11:34 AM EDT LIPASE Lab Routine Diarrhea, unspecified type Generalized abdominal pain Pancreatic lesion Diverticulosis 11/29/2022 11:34 AM EDT CBC Lab Routine Diarrhea, unspecified type Generalized abdominal pain Pancreatic lesion Diverticulosis 11/29/2022 11:34 AM EDT DIFFERENTIAL, AUTOMATED Lab Routine Diarrhea, unspecified type Generalized abdominal pain Pancreatic lesion Diverticulosis 11/29/2022 11:34 AM EDT Health Maintenance Due Date Last [...] D LEVEL ONCE IN A LIFETIME-USE SMARTSET# [id number] Completed 09/20/2017 Zoster Vaccines Completed 12/13/2020, 10/02, [...] encounter Medical Devices Implanted Type Area Sales Project Administrator Device Identifier Shelf Expiration Date Model / Serial / Lot Lens Intraoc 20.0 - [id number] - [id number] Implanted:Qty: 1 on 02/15/2021 by Ben Patel MD at [facility] Left: Eye [employer] 11/01/2025 [id number] / [id number] / [id number] Lens Intraoc 19.5 - [id number] - [id number] Implanted:Qty: 1 on 02/22/2021 by Ben Patel MD at [facility] Right: Eye [employer] 10/01/2025 [id number] / [id number] / [id number] documented as of this encounter Visit Diagnoses Diagnosis Acquired hypothyroidism Unspecified hypothyroidism Dyslipidemia Other and unspecified hyperlipidemia Hypertension, goal below 150/90 Diarrhea, unspecified type Generalized abdominal pain Abdominal pain, generalized Pancreatic lesion Unspecified disease of pancreas Diverticulosis Diverticulosis of colon (without mention of hemorrhage) documented in this encounter Care Teams Sheet Rock Hanger Relationship Specialty Start Date End Date Azucena Hernández MD [address] [place] [address] PCP - General Family Medicine 02/28/22 documented as of this encounter
--- OUTSIDE RECORDS SUMMARY | 2023-04-13 13:58 | External Medical Summary | Summary of Care ---
Author Name Unknown Organization [facility] Address [address] [facility] [place] [address] Phone [phone] Care Team Providers Care Main Entree Cook And Cashier Name Role Phone Azucena Hernández MD Primary Care Provid er Reason for Visit * Reason Onset Date Comments Test Results 11/30/2022 Encounter Details Date Type Department Care Team Description 11/30/2022 Telephone Family Practice [facility] [address] [facility] [place] [address] Camelia Lewis DO [address] [facility] [place] [address] Test Results (/) Allergies Active [...] mRNA, LNP-s, No Pre serve, 2-Dose Series ([employer]) 03/28/2021,08/13/2020,07/23/2020 Covid-19, Mrna, Lnp-s, Pf, B ivalent, [...] below and will f/u with her PCP. * Telephone Encounter - Lynn Aguilar LPN [...] Family Medicine Azucena Hernández MD [address] [place] [address] Health Maintenance Due Date Last Done [...] D LEVEL ONCE IN A LIFETIME-USE SMARTSET# 70108 Completed 09/20/2017 Zoster Vaccines Completed 12/13/2020, 10/02, [...] this encounter Medical Devices Implanted Type Area Manager In Training Device Identifier Shelf Expiration Date Model / Serial / Lot Lens Intraoc 20.0 - [id number] - [id number] Implanted:Qty: 1 on 02/15/2021 by Ben Patel MD at [facility] Left: Eye [employer] 11/01/2025 [id number] / [id number] / [id number] Lens Intraoc 19.5 - [id number] - [id number] Implanted:Qty: 1 on 02/22/2021 by Ben Patel MD at [facility] Right: Eye [employer] 10/01/2025 [id number] / [id number] / [id number] documented as of this encounter Additional Health Concerns Infection Onset Date Last Indicated Resolved Time C. difficile Rule-Out 11/30/2022 11/30/20222022 2:51 PM EDT Gastrointestinal Rule-Out 11/30/2022 11/30/2022 documented as of this encounter Care Teams Main Entree Cook And Cashier Relationship Specialty Start Date End Date Azucena Hernández MD [address] [place] [address] PCP - General Family Medicine 02/28/22 documented as of this encounter
--- OUTSIDE RECORDS SUMMARY | 2023-04-13 13:58 | External Medical Summary ---
Author Name Unknown Address Unknown Organization [id number]:[facility] [place] [address] [place] [address] Laboratory Report Ordering Provider Test Date Status MIGUELITO MEJIASO 11/29/2022 11:34:49 Final Observation Date Value Abnormality Reference (Units ) Status Triglyceride 11/29/2022 11:34:49 76 <=174 ( mg/dL) Final Triglyceride Reference Range s (mg/dL):
<150 Acceptable
150-174 Borderline high
175-499 High
>=500 Very high Cholesterol 11/29/2022 11:34:49 145 <200 (mg /dL) Final Total Cholesterol Reference Ranges (mg/dL):
<200 Desirable
200-239 Borderline high
>=240 High HDL 11/29/2022 11:34:49 67 >49 (mg/dL ) Final HDL Cholesterol Reference Ra nges (mg/dL):
>=60 High (Desirable)
<50 Low (Undesirable) For Females
<40 Low (Undesirable) For Males NON-HDL CHOLESTEROL 11/29/2022 11:34:49 78 <=159 (mg/dL) Final Non-HDL Cholesterol Referenc e Range (mg/dL):
<100 Target level for high risk ASCVD patient
<130 Optimal for general population
130-159 Near optimal for general population
160-189 Borderline High
190-219 High
>=220 Very High LDL, (calculated) 11/29/2022 11:34:49 63 <= 129 (mg/dL) Final LDL Cholesterol Reference Ra nges (mg/dL):
<70 Target level for high risk ASCVD patient
<100 Optimal for general population
100-129 Near optimal for general population
130-159 Borderline high
160-189 High
>=190 Very high Performing Location [facility] [place] - [address] [facility] [address]
--- OUTSIDE RECORDS SUMMARY | 2023-04-13 13:58 | External Medical Summary ---
Author Name Unknown Address Unknown Organization [id number][facility] [address] [place] [id number] Laboratory Report Ordering Provider Test Date Status LUIS MOJICA 11/29/2022 11:34:49 Final Observation Date Value Abnormality Reference (Units ) Status WBC, Total 11/29/2022 11:34:49 9.28 4.00-10.8 0 (K/uL) Final RBC 11/29/2022 11:34:49 4.60 3.85-5.15 (M/uL) Final Hemoglobin 11/29/2022 11:34:49 14.1 12.0-15.3 (g/dL) Final HCT 11/29/2022 11:34:49 42.7 36.0-45.2 (%) Final MCV 11/29/2022 11:34:49 92.8 81.5-97.5 (fL) Final MCH 11/29/2022 11:34:49 30.7 27.0-34.0 (pg) Final MCHC 11/29/2022 11:34:49 33.0 32.0-36.0 (g/dL) Final RDW 11/29/2022 11:34:49 14.3 11.5-15.5 (%) Final Platelets 11/29/2022 11:34:49 255 140-400 (K /uL) Final MPV 11/29/2022 11:34:49 10.9 6.6-11.1 ( fL) Final Performing Location [facility] [place] [address]
--- OUTSIDE RECORDS SUMMARY | 2023-04-13 13:58 | External Medical Summary ---
Author Name Unknown Address Unknown Organization [id number]:LABORATORY [place] [address] [place] [id number] Laboratory Report Ordering Provider Test Date Status LUIS MOJICA 11/29/2022 11:34:49 Final Observation Date Value Abnormality Reference (Units ) Status BUN 11/29/2022 11:34:49 14 6-20 (mg/dL) Final Creatinine 11/29/2022 11:34:49 0.8 0.5-1.0 (mg/dL) Final Glomerular filtration rate/1.73 sq M.predicted [Volume Rate/Area] in Serum, Plasma or Blood by Creatinine-based formula (CKD-EPI) 11/29/2022 11:34:49 73 >=60 (mL/min) Final eGFR is calculated based on the CKD-EPI 2020 equation SODIUM 11/29/2022 11:34:49 139 135-146 (m mol/L) Final Potassium 11/29/2022 11:34:49 4.5 3.5-5.1 (m mol/L) Final Cl 11/29/2022 11:34:49 101 98-107 (mm ol/L) Final CO2 11/29/2022 11:34:49 26 22-32 (mmo l/L) Final Anion gap 11/29/2022 11:34:49 12 7-15 (mmol /L) Final Glucose 11/29/2022 11:34:49 101 70-120 (mg /dL) Final Albumin 11/29/2022 11:34:49 4.2 3.8-5.0 (g /dL) Final AST (Aspartate aminotransferase) 11/29/2022 11:34:49 22 10-35 (U/L) Fin al Alk Phos 11/29/2022 11:34:49 103 35-130 (U/ L) Final Bilirubin, Total 11/29/2022 11:34:49 1.0 <=1 .2 (mg/dL) Final Calcium 11/29/2022 11:34:49 10.3 Above high normal 8. 4-10.2 (mg/dL) Final Protein 11/29/2022 11:34:49 7.5 6.0-8.3 (g /dL) Final ALT (Alanine aminotransferase) 11/29/2022 11:34:49 24 10-35 (U/L) Charlie alexis Performing Location LABORATORY [place] [address] [facility] [address]
--- OUTSIDE RECORDS SUMMARY | 2023-04-13 13:58 | External Medical Summary ---
Author Name Unknown Address Unknown Organization [id number]:LABORATORY [place] [address] [facility] [address] Laboratory Report Ordering Provider Test Date Status LUIS MOJICA 11/30/2022 10:17:05 Final Observation Date Value Abnormality Reference (Units ) Status Campylobacter sp DNA.diarrheagenic [Presence] in Stool by CHRISTIN with probe detection 11/30/2022 10:17:05 Negative Negative Final Salmonella sp rpoD gene [Presence] in Stool by CHRISTIN with probe detection 11/30/2022 10:17:05 Negative Negative Final Shigella species+EIEC invasion plasmid antigen H ipaH gene [Presence] in Stool by CHRISTIN with probe detection 11/30/2022 10:17:05 Negative Negative Final Vibrio sp DNA [Identifier] in Specimen by CHRISTIN with probe detection 11/30/2022 10:17:05 Negative Negative Final Yersinia enterocolitica recN gene [Presence] in Stool by CHRISTIN with probe detection 11/30/2022 10:17:05 Negative Negative Final Escherichia coli Stx1 toxin stx1 gene [Presence] in Stool by CHRISTIN with probe detection 11/30/2022 10:17:05 Negative Negative Final Escherichia coli Stx2 toxin stx2 gene [Presence] in Stool by CHRISTIN with probe detection 11/30/2022 10:17:05 Negative Negative Final Norovirus genogroups I and II RNA panel - Stool by CHRISTIN with probe detection 11/30/2022 10:17:05 Negative Negative Final Rotavirus A RNA [Presence] in Stool by CHRISTIN with probe detection 11/30/2022 10:17:05 Negative Negative Final Performing Location LABORATORY [place] [address] [facility] [address]
--- OUTSIDE RECORDS SUMMARY | 2023-04-13 13:58 | External Medical Summary | Summary of Care ---
Author Name Unknown Organization [facility] Address [address] [facility] [place] [address] Phone [phone] Care Team Providers Care Talent Advisor Name Role Phone Azucena Hernández MD Primary Care Provid er Reason for Visit * Reason Onset Date Comments Test Results 11/30/2022 Encounter Details Date Type Department Care Team Description 11/30/2022 Telephone Family Practice [facility] [address] [facility] [place] [address] Camelia Lewis DO [address] [facility] [place] [place] [address] Test Results (/) Allergies Active [...] mRNA, LNP-s, No Pre serve, 2-Dose Series ([employer]) 03/28/2021,08/13/2020,07/23/2020 Covid-19, Mrna, Lnp-s, Pf, B ivalent, [...] Office Visit Family Medicine Azucena Hernández MD [address] [place] [facility] [place] [address] Health Maintenance Due Date Last Done [...] D LEVEL ONCE IN A LIFETIME-USE SMARTSET# 53823 Completed 09/20/2017 Zoster Vaccines Completed 12/13/2020, 10/02, [...] this encounter Medical Devices Implanted Type Area Home Health Aide Caregiver Device Identifier Shelf Expiration Date Model / Serial / Lot Lens Intraoc 20.0 - [id number] - [id number] Implanted:Qty: 1 on 02/15/2021 by Ben Patel MD at OR [facility] Left: Eye [employer]OM[employer] 11/01/2025 [id number] / [id number] / [id number] Lens Intraoc 19.5 - [id number] - [id number] Implanted:Qty: 1 on 02/22/2021 by AmandaBen pérez MD at OR [facility] Right: Eye [employer]CH [employer]OMB 10/01/2025 [id number] / [id number] / [id number] documented as of this encounter Additional Health Concerns Infection Onset Date Last Indicated Resolved Time C. difficile Rule-Out 11/30/2022 11/30/20222022 2:51 PM EDT Gastrointestinal Rule-Out 11/30/2022 11/30/2022 documented as of this encounter Care Teams Talent Advisor Relationship Specialty Start Date End Date Azucena Hernández MD [address] [place] [address] PCP - General Family Medicine 02/28/22 documented as of this encounter
--- OUTSIDE RECORDS SUMMARY | 2023-04-13 13:59 | External Medical Summary ---
Author Name Unknown Address Unknown Organization K01:[facility] [place] [address] [place] [address] Laboratory Report Ordering Provider Test Date Status ARNULFO MEJIAS 11/29/2022 11:34:49 Final Observation Date Value Abnormality Reference (Units ) Status TSH 11/29/2022 11:34:49 0.23 Below low normal 0.2 7-4.20 (uIU/mL) Final Performing Location LABORATORY [facility] - [address] [place] [address]
--- OUTSIDE RECORDS SUMMARY | 2023-04-13 13:59 | External Medical Summary | Summary of Care ---
Author Name Unknown Organization [facility] Address [address] [place] [address] Phone [phone] Care Team Providers Care Welder Journeyman Name Role Phone Azucena Hernández MD Primary Care Provid er Reason for Visit * Reason Onset Date Comments Advice 11/28/2022 Encounter Details Date Type Department Care Team Description [facility] [address] [facility] [place] [address] Azucena Hernández MD [address] [place] [address] Advice Allergies Active Allergy Reactions Severity Noted Date Comments Latex Other (Please comment),Rash 11/16/2009 Sensitivity to latex; okay to use exam gloves Penicillins Other (Please comment) 11/16/2009 Mouth sores documented as of this encounter (statuses as of 11/28/2022) Medications Medication Sig Dispensed Refills Start Date [...] Probiotic Product (PROBIOTIC ACIDOPHILUS) Capsule Take 1 Cap by mouth. 1 daily 0 Active clotrimazole-betameth asone (LOTRISONE) 1-0.05 % cream Apply topically to affected area 2 times a day. To affected area for 4 weeks, or until healed. 15 g 1 01/01/2017 Active Additional Information Patient not taking.Reported on 02/09/2021 diphenhydrAMINE HCl 25 MG Oral Tablet (BENADRYL) Take 25 mg by mouth every 6 hours as needed for Allergies. 0 Active Ibuprofen 200 MG Oral Tablet (MOTRIN) Take by mouth 200 mg every 8 hours as needed for Pain. [...] as of this encounter (statuses as of 11/28/2022) Active Problems Problem Noted Date Diverticulitis 09/22/2022 H/O: hysterectomy 09/22/2022 History of right hip replacement 04/21/2 023 Osteoarthritis of right shoulder 023 Hammertoe of right foot 06/05/2022 Pancreatic lesion 07/12/2018 Dilated cbd, acquired 07/12/2018 History of breast cancer 09/17/2017 Gastroesophageal reflux disease without esophagitis 09/17/2017 Senile osteoporosis 03/19/2017 Dyslipidemia 03/19/2017 Hypertension, goal below 150/90 09/14/19 16 Hypothyroidism 09/14/2015 Malignant neoplasm of breast 11/10/2009 documented as of this encounter (statuses as of 11/28/2022) Resolved Problems Problem Noted Date Resolved Date ADVANCE DIRECTIVE INFORMATION 02/02/2010 Overview: Gave advance directive booklet/info. Malignant neoplasm of lower-outer quadrant of fe male breast 12/14/2009 09/17/2017 documented as of this encounter (statuses as of 11/28/2022) Immunizations Name Administration Dates Next Due COVID-19 [...] Q uit: 06/04/1967 Smokeless Tobacco: Never Comments:Quit 1968 Alcohol Use Standard Drinks/Week Comments No 0 [...] encounter Miscellaneous Notes * Telephone Encounter - Karen Angulo LPN - 11/28/2022 10:02 AM EDT Provider to address: N/A Reason for Call: Advice Contact: Telephone Call Contact Type: Information Outcome: Pt calling requesting appt due to upset stomach and diarrhea for a couple weeks. Scheduled appt with Dr Lewis 11/29 Total Time including non face to face (minutes): 10 documented in this encounter Plan of Treatment Upcoming Encounters Date Type Specialty Care Team Description 11/29/2022 Office Visit Family Medicine Camelia Lewis, [address] [place] [address] 12/26/2022 Office Visit Family Medicine Azucena Hernández MD [address] [facility] [place] [address] Health Maintenance Due Date Last Done Comments [...] D LEVEL ONCE IN A LIFETIME-USE SMARTSET# 38375 Completed 09/20/2017 Zoster Vaccines Completed 12/13/2020, 10/02, [...] this encounter Medical Devices Implanted Type Area Chair Trimmer Device Identifier Shelf Expiration Date Model / Serial / Lot Lens Intraoc 20.0 - [id number] - [id number] Implanted:Qty: 1 on 02/15/2021 by Ben Patel MD at OR [facility] Left: Eye [employer]OM[employer] 11/01/2025 [id number] / [id number] / [id number] Lens Intraoc 19.5 - [id number] - [id number] Implanted:Qty: 1 on 02/22/2021 by Ben Patel MD at OR [facility] Right: Eye BAUSCH [employer] LOMB 10/01/2025 [id number] / [id number] / [id number] documented as of this encounter Care Teams Welder Journeyman Relationship Specialty Start Date End Date Azucena Hernández MD [address] [place] [id number] PCP - General Family Medicine 02/28/22 documented as of this encounter
--- OUTSIDE RECORDS SUMMARY | 2023-04-13 13:59 | External Medical Summary ---
Author Name Unknown Address Unknown Organization K01:LABORATORY [facility] - [address] [place] [address] Laboratory Report Ordering Provider Test Date Status LUIS MOJICA 11/29/2022 11:34:49 Final Observation Date Value Abnormality Reference (Units ) Status Lipase 11/29/2022 11:34:49 35 13-60 (U/L ) Final Performing Location LAB[facility]ORY [facility] - [address] [place] [address]
--- NOTE | 2023-04-13 14:20 | Hospitalist Progress Note ---
Date of Service April 13, 2023 Assessment & Plan (1) Hip fracture: Plan: Left hip fracture Left distal radial fracture Secondary to fall --Hip X ray:Comminuted and displaced intertrochanteric fracture within the proximal left femur. --Left Wrist:Comminuted intra-articular distal radial fracture. Degenerative changes are seen without definite carpal or metacarpal fractures. S/p Open Reduction Internal Fixation Left Hip by Dr. Forbes on 04/09/23 Pain control, fall precautions Bowel regimen to prevent constipation - continue Colace bid, Miralax bid PRN Per ortho - WBAT LLE PT/OT recommending rehab - awaiting placement LLE incisions developed blisters likely 2/2 an allergy to the occlusive dressing. RN changed to a 4 x 4 and Medipore around all the surgical sites per ortho Hyponatremia Likely due to hypovolemia/dehydration Sodium levels improved with IVF, 133 today Monitor sodium levels Normocytic anemia Acute blood loss anemia as a result of multiple recent surgical procedures, R shoulder, L hip Normal vitamin B12, folate levels Serum iron slightly low Denies any bleeding issues hgb 7.3 04/10 with hemodynamic instability, pt with evidence of tachycardia and lower blood pressures and received 1 unit PRBC started Ferrous sulfate + vit C daily Eliquis resumed 04/13 hgb today 8.0 -> 7.8 today Repeat H&H this evening, consider holding eliquis or transfusion if develops symptoms or hgb continues downtrending Sinus tachycardia Likely in setting of volume depletion improved after 1 unit prbc hold atenolol and placed on metoprolol tartrate 50mg bid likely can continue atenolol at discharge as long as resolved Recent right shoulder surgery Continue sling Needs follow-up with orthopedics upon discharge Hypertension improving, 124/72 will continue to hold home meds, except beta blas Hold Amlodipine and lisinopril Atenolol on hold in favor of metoprolol tartrate Monitor BP Hypothyroidism Continue levothyroxine H/O Post Operative PE As per records Right breast cancer S/P surgery/radiation/Anastrozole Rx Prediabetes HbA1C 5.8 Past tobacco abuse As per records DVT Px: Eliquis 2.5 mg BID Dispo: pt medically stable for discharge as long as hemoglobin remains stable and ok from orthopedic stand point. PT/OT recommending rehab, CM placed referrals at [facility] and [facility] (poss bed at SNF on Sunday) Code Status: Full code Admission and Anticipated Discharge Date Admission Date: April 08, 2023 Supervising Physician Co-Signing Physician Notes Pt seen and examined by me, care coordinated tony/ Kobe Barahona PA-C, pls refer to her note above for further detail. Pt is laying in bed in NAD. She is awake alert, oriented, answers appropriately. She is comfortable. Breathing on RA. Denies any fevers chills chest pain shortness of breath. No abdominal pain nausea vomiting. Lungs are clear to auscultation, heart sounds regular. Abdomen soft and nondistended. Right upper extremity in a sling. Dressings applied to left hip, postsurgical. Left wrist in brace. Closely followed by orthopedics. Dressings changed. CM involved, awaiting discharge to rehab/snf. MD Katharine Subjective Patient was seen and examined in room 316. Follow-up left hip fracture along with left distal radial fracture. Continues to feel improved today and is having less pain to left wrist and hip. Participating with therapy. She has not yet moved bowels but passing flatus. Denies lightheadedness, dizziness, chest pain, shortness breath, fever or chills. Review of Systems Review of Systems: At least ten systems reviewed and negative except as noted in the HPI. Physical Exam Physical Exam: Gen: WD/WN, NAD, resting in bed watching TV HEENT: Normocephalic, atraumatic, conjunctivae moist, sclerae anicteric, mucous membranes moist Lung: Clear to Auscultation bilaterally, no wheezes/rales/rhonchi Heart: Regular rate, regular rhythm, no murmurs, rubs, or gallops Abdomen: Soft, NT, ND +BS x 4 Extremities: No edema, LLE Dressing CDI with adjacent blisters, no drainage or erythema, no TTP. L wrist splinted, R shoulder with incision well healed, strength intact Skin: Warm, no rash Results & Data Results & Data Vital Signs (Past 12 Hours) Vital Signs Temp Pulse Resp BP Pulse Ox O2 Del Method 04/13/23 07:31 36.8 C 91 H 16 128/75 94 Room Air Laboratory Results Short CBC 04/13/23 Range/Units 06:11 WBC 6.44 (4.8-10.8) K/ul Hgb 7.8 L (12.0-16.0) g/dl Hct 23.8 L (37.0-47.0) % Plt Count 262 (130-400) K/uL BMP 04/13/23 06:11 Sodium 133 L Potassium 3.7 Chloride 99 Carbon Dioxide 27 BUN 11 Creatinine 0.39 L Glucose 109 H Calcium 8.5 L Diagnostic Findings Hip/Pelvis X-Ray 04/08/23 18:27 XR hip LT 2V w pelvis CLINICAL HISTORY: Left hip pain. Fall. COMPARISON STUDY: Pelvis 10/28/2019. FINDINGS: Comminuted and displaced intertrochanteric fracture within the proximal left femur. No dislocation of the left femoral head. The bones are osteopenic. No acute fracture or dislocation within the pelvis or right hip. There is a right total arthroplasty. The hardware appears intact. IMPRESSION: Comminuted and displaced intertrochanteric fracture within the proximal left femur. ACT 112: Negative or not required by law. Electronically signed by: Willie Henriquez M.D. 04/09/2023 7:02 AM Wrist X-Ray 04/08/23 18:27 XR wrist LT min 3V routine CLINICAL HISTORY: pain fall TECHNIQUE: 4 views of the left wrist were obtained. Comparison: None available at the time of this dictation. FINDINGS: There is a comminuted intra-articular fracture of the distal radial metadiaphysis with overriding of fragments Osteophyte formation and joint space narrowing is seen. No soft tissue abnormality is seen. IMPRESSION: Comminuted intra-articular distal radial fracture. Degenerative changes are seen without definite carpal or metacarpal fractures. ACT 112: Negative or not required by law. Electronically signed by: Jose Antonio Bajwa M.D. 04/08/2023 8:02 PM Chest X-Ray 04/08/23 19:45 XR chest 1V portable CLINICAL HISTORY: preop TECHNIQUE: Single frontal radiograph of the chest was obtained. 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 Cardiomegaly is noted. The aortic arch is calcified. The lungs are clear. No evidence of pleural effusion or pneumothorax. IMPRESSION: No acute chest disease. ACT 112: Negative or not required by law. Electronically signed by: Jose Antonio Bajwa M.D. 04/08/2023 8:01 PM Hip X-Ray 04/09/23 13:00 INTRAOPERATIVE RADIOGRAPHS CLINICAL HISTORY: Open reduction and internal fixation of the left proximal femur. Fluoro time: 105 seconds Ka,r: 24.75 mGy FINDINGS: 6 spot fluoroscopic views of the left femur are correlated with radiographs dated 04/08/2023. Intertrochanteric and intramedullary nails have been placed transfixing an intertrochanteric/subtrochanteric fracture of the left proximal femur. Near-anatomic alignment is restored, with mild persistent offset of the largest fragments. A single cortical lag screw transfixes the distal end of the intramedullary nail. A left knee arthroplasty is in place. IMPRESSION: Intraoperative images from open reduction and internal fixation of the left proximal femur as above. Electronically signed by: Fred Eden M.D. 04/09/2023 4:01 PM Femur X-Ray 04/09/23 16:50 LEFT FEMUR 2 VIEWS CLINICAL HISTORY: Postoperative examination. FINDINGS: AP and crosstable lateral portable views of the left femur are compared to study dated 04/08/2023. The skeletal structures are osteopenic. There has been intertrochanteric and intramedullary nail fixation of a comminuted intertrochanteric/subtrochanteric fracture of the left proximal femur with jain of near-anatomic alignment. There is mild persistent offset of the largest fragments. The orthopedic hardware appears intact. A single cortical lag screw transfixes the distal end of the intramedullary nail. No new fracture is seen. The visualized left hemipelvis appears intact. Skin clips, soft tissue swelling, and subcutaneous gas overlying the left femur are expected postsurgical changes. A left knee arthroplasty is in place. IMPRESSION: Expected postsurgical findings status post intertrochanteric and intramedullary nail fixation of a left proximal femoral fracture as above. Electronically signed by: Fred Eden M.D. 04/09/2023 5:48 PM
[2023-04-13] MEDS: MULTIVITAMIN TAB PO SCH (15:51)
[2023-04-13 15:54] LABS: Hematocrit (blood only) 23.3 % (37.0-47.0); Hemoglobin 7.9 g/dl (12.0-16.0)
[2023-04-14] MEDS: oxyCODONE HCL IR 5 MG TAB (IMMEDIATE RELEASE) PO PRN ×3 (03:54→20:35)
[2023-04-14] MEDS: LEVOTHYROXINE SODIUM 125 MCG TABLET PO SCH (05:41)
[2023-04-14 06:43] LABS: Hematocrit (blood only) 23.2 % (37.0-47.0); Hemoglobin 7.7 g/dl (12.0-16.0); Mean Corpuscular Hemoglobin 30.6 pg (25.0-34.0); Mean Corpuscular Hgb Conc 33.2 g/dL (32.0-36.0); Mean Corpuscular Volume 92.1 fL (80.0-100.0); Mean Platelet Volume 9.7 fL (9.4-12.4); Platelet Count 310 K/uL (130-400); RDW Coefficient of Variation 14.3 % (11.5-14.5); RDW Standard Deviation 48.1 fL (36.4-46.3); Red Blood Count 2.52 M/uL (4.20-5.40); White Blood Count 9.86 K/ul (4.8-10.8)
[2023-04-14 07:07] LABS: BUN Creatinine Ratio 29.3 (10-20); Calcium 8.6 mg/dl (8.6-10.3); Creatinine Clr Calc Pharmacy 111.5 ml/min; Est GFR (African American) 113.1 ml/min; Est GFR (Non-African American) 97.6 ml/min; Potassium 3.8 mmol/L (3.5-5.1)
--- NOTE | 2023-04-14 08:30 | Hospitalist Progress Note ---
Date of Service April 14, 2023 Assessment & Plan (1) Hip fracture: Plan: Left hip fracture Left distal radial fracture Secondary to fall --Hip X ray:Comminuted and displaced intertrochanteric fracture within the proximal left femur. --Left Wrist:Comminuted intra-articular distal radial fracture. Degenerative changes are seen without definite carpal or metacarpal fractures. S/p Open Reduction Internal Fixation Left Hip by Dr. Forbes on 04/09/23 Pain control, fall precautions Bowel regimen to prevent constipation - continue Colace bid, Miralax bid PRN Per ortho - WBAT LLE PT/OT recommending rehab - awaiting placement 04/13 LLE incisions developed blisters likely 2/2 an allergy to the occlusive dressing. RN changed to a 4 x 4 and Medipore around all the surgical sites per ortho Hyponatremia Likely due to hypovolemia/dehydration Current Na 132, stable Monitor sodium levels Normocytic anemia Acute blood loss anemia as a result of multiple recent surgical procedures, R shoulder, L hip Normal vitamin B12, folate levels Serum iron slightly low Denies any bleeding issues hgb 7.3 04/10 with hemodynamic instability, pt with evidence of tachycardia and lower blood pressures and received 1 unit PRBC started Ferrous sulfate + vit C daily Eliquis resumed 04/13 Hgb at 7-8 Sinus tachycardia Likely in setting of volume depletion improved after 1 unit prbc hold atenolol and placed on metoprolol tartrate 50mg bid likely can continue atenolol at discharge as long as resolved Recent right shoulder surgery Continue sling Needs follow-up with orthopedics upon discharge Hypertension improving, 124/72 will continue to hold home meds, except beta blas Hold Amlodipine and lisinopril Atenolol on hold in favor of metoprolol tartrate Monitor BP Hypothyroidism Continue levothyroxine H/O Post Operative PE As per records Right breast cancer S/P surgery/radiation/Anastrozole Rx Prediabetes HbA1C 5.8 Past tobacco abuse As per records DVT Px: Eliquis 2.5 mg BID Dispo: pt medically stable for discharge. CM placed referrals at [facility] and [facility] (poss bed at [facility] on Sunday) Code Status: Full code Admission and Anticipated Discharge Date Admission Date: April 08, 2023 Subjective Pt seen in follow-up of left hip fracture along with left distal radial fracture. Denies fever, chills, chest pain, shortness of breath. Denies abd. pain, n/v Orthopedics following closely. CM involved - awaiting discharge to rehab/ snf Review of Systems Review of Systems: All systems reviewed & are unremarkable except as noted in Subjective Physical Exam Physical Exam: Gen: WD/WN, NAD, resting in bed watching TV HEENT: Normocephalic, atraumatic, conjunctivae moist, sclerae anicteric, mucous membranes moist Lung: Clear to Auscultation bilaterally, no wheezes/rales/rhonchi Heart: Regular rate, regular rhythm, no murmurs, rubs, or gallops Abdomen: Soft, NT, ND +BS x 4 Extremities: No edema, LLE Dressing CDI with adjacent blisters, no drainage or erythema, no TTP. L wrist splinted, R shoulder with incision well healed, strength intact Skin: Warm, no rash Results & Data Results & Data Vital Signs (Past 12 Hours) Vital Signs Temp Pulse Resp BP Pulse Ox O2 Del Method 04/14/23 07:58 Room Air 04/14/23 07:55 37.0 C 109 H 16 119/69 95 Room Air 04/13/23 20:41 37.5 C 109 H 16 118/75 95 Room Air Laboratory Results 04/14/23 04/13/23 Range/Units 05:55 15:41 WBC 9.86 (4.8-10.8) K/ul RBC 2.52 L (4.20-5.40) M/uL Hgb 7.7 L 7.9 L (12.0-16.0) g/dl Hct 23.2 L 23.3 L (37.0-47.0) % MCV 92.1 (80.0-100.0) fL MCH 30.6 (25.0-34.0) pg MCHC 33.2 (32.0-36.0) g/dL RDW Std Deviation 48.1 H (36.4-46.3) fL RDW Coeff of Angel 14.3 (11.5-14.5) % Plt Count 310 (130-400) K/uL MPV 9.7 (9.4-12.4) fL Sodium 132 L (136-145) mmol/L Potassium 3.8 (3.5-5.1) mmol/L Chloride 97 L (98-107) mmol/L Carbon Dioxide 29 (21-32) mmol/L Anion Gap 6 (3-11) BUN 12 (6-23) mg/dl Creatinine 0.41 L (0.6-1.2) mg/dl Est Cr Clr Drug Dosing 111.5 ml/min Est GFR ( Amer) 113.1 ml/min Est GFR (Non-Af Amer) 97.6 ml/min BUN/Creatinine Ratio 29.3 H (10-20) Glucose 114 H (70-99(Fasting)) mg/dl Calcium 8.6 (8.6-10.3) mg/dl Medications Administered Current Inpatient Medications Acetaminophen (Acetaminophen 325 Mg Tab) 650 mg PO QID PRN PRN Reason: pain/fever Stop: 05/08/23 21:51 Last Admin: 04/10/23 12:51 Dose: 650 mg Apixaban (Apixaban 2.5 Mg Tab) 2.5 mg PO BID [facility] Stop: 05/11/23 20:59 Last Admin: 04/13/23 20:40 Dose: 2.5 mg Ascorbic Acid (Ascorbic Acid 500 Mg Tab) 500 mg PO [facility] Stop: 05/12/23 08:59 Last Admin: 04/13/23 09:00 Dose: 500 mg Bisacodyl (Bisacodyl 10 Mg Supp) 10 mg CO DAILY PRN PRN Reason: Constipation Stop: 05/09/23 00:43 Calcium/Vitamin D (Calcium 600mg + Vit D 400 Iu Tab) [facility] [place] 05/09/23 08:59 Last Admin: 04/13/23 09:00 Dose: 1 tab Docusate Sodium (Docusate Sodium 100 Mg Cap) 100 mg PO BID [facility] Stop: 05/11/23 11:59 Last Admin: 04/13/23 20:40 Dose: 100 mg Famotidine (Famotidine 20 Mg Tab) [facility] [place]: 05/09/23 08:59 Last Admin: 04/13/23 09:00 Dose: 20 mg Ferrous Sulfate (Ferrous Sulfate 325 Mg Tab) [facility] [place]: 05/12/23 08:59 Last Admin: 04/13/23 09:00 Dose: 325 mg Promethazine HCl 6.25 mg/ (Sodium Chloride) 50.25 mls @ 201 mls/hr IV Q6H PRN PRN Reason: Nausea And Vomiting Stop: 05/08/23 21:51 Levothyroxine Sodium (Levothyroxine Sodium 125 Mcg Tablet) 125 mcg PO DAILYBB [facility] Stop: 05/09/23 06:29 Last Admin: 04/14/23 05:41 Dose: 125 mcg Metoprolol Tartrate (Metoprolol Tartrate 50 Mg Tab) 50 mg PO BID [facility] Stop: 05/10/23 08:59 Last Admin: 04/13/23 20:40 Dose: 50 mg Morphine Sulfate (Morphine Sulfate 2 Mg/Ml Carp) 2 mg IV Q3H PRN PRN Reason: Pain Stop: 04/22/23 21:51 Last Admin: 04/11/23 21:19 Dose: 2 mg Multivitamins (Multivitamin Tab) 1 tab PO QDD [facility] Stop: 05/09/23 16:29 Last Admin: 04/13/23 15:51 Dose: 1 tab Naloxone HCl (Naloxone Hcl 0.4 Mg/1 Ml Vial/Carp) 0.1 mg IV UD PRN PRN Reason: Opiate Overdose Stop: 05/09/23 00:43 Oxycodone HCl (Oxycodone Hcl Ir 5 Mg Tab (Immediate Release)) 5 - 10 mg PO QID PRN PRN Reason: Pain Stop: 04/22/23 21:51 Last Admin: 04/14/23 03:54 Dose: 10 mg Polyethylene Glycol (Polyethylene (Miralax) 17 Gm Pack) 17 gm PO BID PRN PRN Reason: Constipation Stop: 05/09/23 08:59
[2023-04-14] MEDS: CALCIUM 600MG + VIT D 400 IU TAB PO SCH (08:34)
[2023-04-14] MEDS: ASCORBIC ACID 500 MG TAB PO SCH (08:34)
[2023-04-14] MEDS: DOCUSATE SODIUM 100 MG CAP PO SCH ×2 (08:35→20:37)
[2023-04-14] MEDS: METOPROLOL TARTRATE 50 MG TAB PO SCH ×2 (08:35→20:37)
[2023-04-14] MEDS: APIXABAN 2.5 MG TAB PO SCH ×2 (08:35→20:37)
[2023-04-14] MEDS: FAMOTIDINE 20 MG TAB PO SCH (08:35)
[2023-04-14] MEDS: FERROUS SULFATE 325 MG TAB PO SCH (08:35)
--- NOTE | 2023-04-14 09:07 | Orthopedic Progress Note ---
Date of Service April 14, 2023 Assessment & Plan (1) Closed intertrochanteric fracture of left hip: With regards to her left hip she is doing okay. We decompressed the blisters. She has dressings in place. She can be weightbearing as tolerated on the left hip. We will see how she does with the fluid throughout the day today. I do not feel any further studies are necessary at this point. With regards to her left wrist she can be weightbearing as tolerated on the left wrist. It is a nondisplaced fracture. If she feels comfortable putting some weight on it with the splint on I think that will be okay. She can use a normal walker as tolerated without brace. With regards to her right shoulder, we can discontinue the sling. She can be full weightbearing as tolerated on the right shoulder. She is now 3 weeks out. Hopefully, by making her weightbearing as tolerated on both her left wrist and her right arm, she can work a little more with ambulation and transfers. She is orthopedically stable for discharge when medically ready. Britney Bowden was seen and examined at bedside this morning. Overall she is doing okay. She still some soreness in the hip. She is frustrated that she cannot put weight on her upper extremities and has trouble transferring or getting out of bed. She is currently awaiting placement at [facility].. She is also complaining of some midfoot pain of her left foot. Review of Systems All systems reviewed & are unremarkable except as noted in HPI & below. Physical Exam On physical examination, she has a splint on her left wrist and a sling on the right shoulder. The dressings on her left hip are clean and dry. The previous blisters have been decompressed. She is doing with some central foot pain.. Results & Data Results & Data Laboratory Results . Diagnostic Findings . PG Care Time/CCT Total # of Minutes Spent Total Time Spent with Patient: Total time spent is greater than 50% in coordination of care (as documented) at patient's floor/unit and/or counseling patient: Coding Level of Care Code 42212 Post Operative Follow-Up Diagnoses Closed intertrochanteric fracture of left hip S72.142A Encounter type: initial encounter Fracture alignment: displaced (1) Closed intertrochanteric fracture of left hip Encounter type: initial encounter Fracture alignment: displaced Qualified Code(s): S72.142A - Displaced intertrochanteric fracture of left femur, initial encounter for closed fracture
[2023-04-14] MEDS: MULTIVITAMIN TAB PO SCH (16:45)
[2023-04-14] MEDS: ACETAMINOPHEN 325 MG TAB PO PRN (22:05)
[2023-04-15] MEDS: ACETAMINOPHEN 325 MG TAB PO PRN ×2 (05:29→21:00)
[2023-04-15] MEDS: LEVOTHYROXINE SODIUM 125 MCG TABLET PO SCH (05:30)
[2023-04-15 06:27] LABS: Hematocrit (blood only) 22.9 % (37.0-47.0); Hemoglobin 7.6 g/dl (12.0-16.0); Mean Corpuscular Hemoglobin 30.3 pg (25.0-34.0); Mean Corpuscular Hgb Conc 33.2 g/dL (32.0-36.0); Mean Corpuscular Volume 91.2 fL (80.0-100.0); Mean Platelet Volume 9.3 fL (9.4-12.4); Platelet Count 321 K/uL (130-400); RDW Coefficient of Variation 14.5 % (11.5-14.5); RDW Standard Deviation 47.8 fL (36.4-46.3); Red Blood Count 2.51 M/uL (4.20-5.40); White Blood Count 11.31 K/ul (4.8-10.8)
[2023-04-15 06:56] LABS: BUN Creatinine Ratio 23.1 (10-20); Calcium 8.8 mg/dl (8.6-10.3); Creatinine Clr Calc Pharmacy 117.2 ml/min; Est GFR (Non-African American) 99.2 ml/min; Phosphorus 4.1 mg/dl (2.5-4.9); Potassium 3.7 mmol/L (3.5-5.1)
[2023-04-15] MEDS: FERROUS SULFATE 325 MG TAB PO SCH (08:32)
[2023-04-15] MEDS: METOPROLOL TARTRATE 50 MG TAB PO SCH ×2 (08:32→20:55)
[2023-04-15] MEDS: APIXABAN 2.5 MG TAB PO SCH ×2 (08:32→20:55)
[2023-04-15] MEDS: CALCIUM 600MG + VIT D 400 IU TAB PO SCH (08:33)
[2023-04-15] MEDS: ASCORBIC ACID 500 MG TAB PO SCH (08:33)
[2023-04-15] MEDS: FAMOTIDINE 20 MG TAB PO SCH (08:33)
[2023-04-15] MEDS: DOCUSATE SODIUM 100 MG CAP PO SCH ×2 (08:33→20:55)
[2023-04-15] MEDS ORDERED: POLYETHYLENE (MIRALAX) 17 GM PACK PO ONE (09:44)
--- NOTE | 2023-04-15 09:47 | Hospitalist Progress Note ---
Date of Service April 15, 2023 Assessment & Plan (1) Hip fracture: Plan: Left hip fracture Left distal radial fracture Secondary to fall --Hip X ray:Comminuted and displaced intertrochanteric fracture within the proximal left femur. --Left Wrist:Comminuted intra-articular distal radial fracture. Degenerative changes are seen without definite carpal or metacarpal fractures. S/p Open Reduction Internal Fixation Left Hip by Dr. Forbes on 04/09/23 Pain control, fall precautions Bowel regimen to prevent constipation - continue Colace bid, Miralax bid PRN Per ortho - WBAT LLE PT/OT recommending rehab - awaiting placement , CM involved 04/13 LLE incisions developed blisters likely 2/2 an allergy to the occlusive dressing. RN changed to a 4 x 4 and Medipore around all the surgical sites per ortho Hyponatremia Likely due to hypovolemia/dehydration Current Na 132, stable Monitor sodium levels Normocytic anemia Acute blood loss anemia as a result of multiple recent surgical procedures, R shoulder, L hip Normal vitamin B12, folate levels Serum iron slightly low Denies any bleeding issues hgb 7.3 04/10 with hemodynamic instability, pt with evidence of tachycardia and lower blood pressures and received 1 unit PRBC started Ferrous sulfate + vit C daily Eliquis resumed 04/13 Hgb at 7-8 Sinus tachycardia Likely in setting of volume depletion improved after 1 unit prbc hold atenolol and placed on metoprolol tartrate 50mg bid likely can continue atenolol at discharge as long as resolved Recent right shoulder surgery Continue sling Needs follow-up with orthopedics upon discharge Hypertension improving, 124/72 will continue to hold home meds, except beta blas Hold Amlodipine and lisinopril Atenolol on hold in favor of metoprolol tartrate Monitor BP Hypothyroidism Continue levothyroxine H/O Post Operative PE As per records Right breast cancer S/P surgery/radiation/Anastrozole Rx Prediabetes HbA1C 5.8 Past tobacco abuse As per records DVT Px: Eliquis 2.5 mg BID Dispo: pt medically stable for discharge. CM placed referrals at [facility] and [facility] Code Status: Full code Admission and Anticipated Discharge Date Admission Date: April 08, 2023 Subjective Pt seen in follow-up of left hip fracture along with left distal radial fracture. Denies fever, chills, chest pain, shortness of breath. Denies abd. pain, n/v Orthopedics following closely. CM involved - awaiting discharge to rehab/ snf Review of Systems Review of Systems: All systems reviewed & are unremarkable except as noted in Subjective Physical Exam Physical Exam: Gen: WD/WN, NAD, resting in bed watching TV HEENT: Normocephalic, atraumatic, conjunctivae moist, sclerae anicteric, mucous membranes moist Lung: Clear to Auscultation bilaterally, no wheezes/rales/rhonchi Heart: Regular rate, regular rhythm, no murmurs, rubs, or gallops Abdomen: Soft, NT, ND +BS x 4 Extremities: No edema, LLE Dressing CDI with adjacent blisters, no drainage or erythema, no TTP. L wrist splinted, R shoulder with incision well healed, strength intact Skin: Warm, no rash Results & Data Results & Data Vital Signs (Past 12 Hours) Vital Signs Temp Pulse Resp BP Pulse Ox O2 Del Method 04/15/23 08:30 Room Air 04/15/23 07:03 36.9 C 97 H 16 106/64 97 Room Air Laboratory Results 04/15/23 Range/Units 06:06 WBC 11.31 H (4.8-10.8) K/ul RBC 2.51 L (4.20-5.40) M/uL Hgb 7.6 L (12.0-16.0) g/dl Hct 22.9 L (37.0-47.0) % MCV 91.2 (80.0-100.0) fL MCH 30.3 (25.0-34.0) pg MCHC 33.2 (32.0-36.0) g/dL RDW Std Deviation 47.8 H (36.4-46.3) fL RDW Coeff of Angel 14.5 (11.5-14.5) % Plt Count 321 (130-400) K/uL MPV 9.3 L (9.4-12.4) fL Sodium 132 L (136-145) mmol/L Potassium 3.7 (3.5-5.1) mmol/L Chloride 97 L (98-107) mmol/L Carbon Dioxide 29 (21-32) mmol/L Anion Gap 6 (3-11) BUN 9 (6-23) mg/dl Creatinine 0.39 L (0.6-1.2) mg/dl Est Cr Clr Drug Dosing 117.2 ml/min Est GFR ( Amer) 115.0 ml/min Est GFR (Non-Af Amer) 99.2 ml/min BUN/Creatinine Ratio 23.1 H (10-20) Glucose 122 H (70-99(Fasting)) mg/dl Calcium 8.8 (8.6-10.3) mg/dl Phosphorus 4.1 (2.5-4.9) mg/dl Magnesium 2.0 (1.7-2.4) mg/dl Medications Administered Current Inpatient Medications Acetaminophen (Acetaminophen 325 Mg Tab) 650 mg PO QID PRN PRN Reason: pain/fever Stop: 05/08/23 21:51 Last Admin: 04/15/23 05:29 Dose: 650 mg Apixaban (Apixaban 2.5 Mg Tab) 2.5 mg PO BID [facility] Stop: 05/11/23 20:59 Last Admin: 04/15/23 08:32 Dose: 2.5 mg Ascorbic Acid (Ascorbic Acid 500 Mg Tab) 500 mg PO [facility] Stop: 05/12/23 08:59 Last Admin: 04/15/23 08:33 Dose: 500 mg Bisacodyl (Bisacodyl 10 Mg Supp) 10 mg DC DAILY PRN PRN Reason: Constipation Stop: 05/09/23 00:43 Calcium/Vitamin D (Calcium 600mg + Vit D 400 Iu Tab) 1 tab PO [facility] Stop: 05/09/23 08:59 Last Admin: 04/15/23 08:33 Dose: 1 tab Docusate Sodium (Docusate Sodium 100 Mg Cap) 100 mg PO BID [facility] Stop: 05/11/23 11:59 Last Admin: 04/15/23 08:33 Dose: 100 mg Famotidine (Famotidine 20 Mg Tab) 20 mg PO [facility] Stop: 05/09/23 08:59 Last Admin: 04/15/23 08:33 Dose: 20 mg Ferrous Sulfate (Ferrous Sulfate 325 Mg Tab) 325 mg PO [facility] Stop: 05/12/23 08:59 Last Admin: 04/15/23 08:32 Dose: 325 mg Promethazine HCl 6.25 mg/ (Sodium Chloride) 50.25 mls @ 201 mls/hr IV Q6H PRN PRN Reason: Nausea And Vomiting Stop: 12/05/23 21:51 Levothyroxine Sodium (Levothyroxine Sodium 125 Mcg Tablet) 125 mcg PO DAILYBB [facility] Stop: 05/09/23 06:29 Last Admin: 04/15/23 05:30 Dose: 125 mcg Metoprolol Tartrate (Metoprolol Tartrate 50 Mg Tab) 50 mg PO BID [facility] Stop: 05/10/23 08:59 Last Admin: 04/15/23 08:32 Dose: 50 mg Morphine Sulfate (Morphine Sulfate 2 Mg/Ml Carp) 2 mg IV Q3H PRN PRN Reason: Pain Stop: 04/22/23 21:51 Last Admin: 04/11/23 21:19 Dose: 2 mg Multivitamins (Multivitamin Tab) 1 tab PO QDD [facility] Stop: 05/09/23 16:29 Last Admin: 04/14/23 16:45 Dose: 1 tab Naloxone HCl (Naloxone Hcl 0.4 Mg/1 Ml Vial/Carp) 0.1 mg IV UD PRN PRN Reason: Opiate Overdose Stop: 05/09/23 00:43 Oxycodone HCl (Oxycodone Hcl Ir 5 Mg Tab (Immediate Release)) 5 - 10 mg PO QID PRN PRN Reason: Pain Stop: 04/22/23 21:51 Last Admin: 04/14/23 20:35 Dose: 10 mg Polyethylene Glycol (Polyethylene (Miralax) 17 Gm Pack) 17 gm PO BID PRN PRN Reason: Constipation Stop: 05/09/23 08:59 Polyethylene Glycol (Polyethylene (Miralax) 17 Gm Pack) 17 gm PO ONE ONE Stop: 04/15/23 09:45
[2023-04-15] MEDS: oxyCODONE HCL IR 5 MG TAB (IMMEDIATE RELEASE) PO PRN ×2 (10:54→18:03)
[2023-04-15] MEDS: MULTIVITAMIN TAB PO SCH (16:15)
[2023-04-16] MEDS: oxyCODONE HCL IR 5 MG TAB (IMMEDIATE RELEASE) PO PRN ×4 (00:27→20:00)
[2023-04-16] MEDS: LEVOTHYROXINE SODIUM 125 MCG TABLET PO SCH (06:06)
--- NOTE | 2023-04-16 07:44 | Orthopedic Progress Note ---
Date of Service April 16, 2023 Assessment & Plan (1) Closed intertrochanteric fracture of left hip: With regards to her left hip she is doing okay. We decompressed the blisters. She has dressings in place. She can be weightbearing as tolerated on the left hip. We will see how she does with the fluid throughout the day today. I do not feel any further studies are necessary at this point. With regards to her left wrist she can be weightbearing as tolerated on the left wrist. It is a nondisplaced fracture in which Dr. Forbes feels would be safe to allow weightbearing to this. If she feels comfortable putting some weight on it with the splint, that will be okay. She can use a normal walker as tolerated without brace. With regards to her right shoulder, we can discontinue the sling. She can be full weightbearing as tolerated on the right shoulder. She is now 3 weeks out. Hopefully, by making her weightbearing as tolerated on both her left wrist and her right arm, she can work a little more with ambulation and transfers. She is orthopedically stable for discharge when medically ready. Subjective . Patient was seen this morning resting comfortably in bed in no apparent distress. Her last physical therapy on Sunday did state that she was able to transition from bed to chair. She did state that she did a little bit of exercise on her own while she was in bed over the weekend. She notes that the nurse had to change her dressing once over the weekend but other than that her incisions are doing quite well. She is eager to be discharged [facility] pending insurance. She denies any other concerns today. Review of Systems All systems reviewed & are unremarkable except as noted in HPI & below. Physical Exam . Focused exam of the left hip shows dressings are clean, dry, and intact. No signs of active bleeding, discharge, or signs of infection. Blisters were decompressed over the weekend with no obvious signs of infection. She does have full extension of her left leg but does have discomfort with movement. Plantarflexion and dorsiflexion intact of the left ankle. +2 DP and PT pulses. Less than 2-second capillary refill. Normal sensation. Neurovascular intact. . Results & Data Results & Data Laboratory Results . Diagnostic Findings . PG Care Time/CCT Total # of Minutes Spent Total Time Spent with Patient: Total time spent is greater than 50% in coordination of care (as documented) at patient's floor/unit and/or counseling patient: Coding Level of Care Code 98404 Post Operative Follow-Up Diagnoses Closed intertrochanteric fracture of left hip S72.142A Encounter type: initial encounter Fracture alignment: displaced (1) Closed intertrochanteric fracture of left hip Encounter type: initial encounter Fracture alignment: displaced Qualified Code(s): S72.142A - Displaced intertrochanteric fracture of left femur, initial encounter for closed fracture
[2023-04-16] MEDS: APIXABAN 2.5 MG TAB PO SCH ×2 (08:00→19:53)
[2023-04-16] MEDS: ACETAMINOPHEN 325 MG TAB PO PRN (08:00)
[2023-04-16] MEDS: METOPROLOL TARTRATE 50 MG TAB PO SCH ×2 (08:00→19:54)
[2023-04-16] MEDS: CALCIUM 600MG + VIT D 400 IU TAB PO SCH (08:00)
[2023-04-16] MEDS: FERROUS SULFATE 325 MG TAB PO SCH (08:01)
[2023-04-16] MEDS: ASCORBIC ACID 500 MG TAB PO SCH (08:01)
[2023-04-16] MEDS: FAMOTIDINE 20 MG TAB PO SCH (08:01)
[2023-04-16] MEDS: DOCUSATE SODIUM 100 MG CAP PO SCH ×2 (08:01→19:54)
--- NOTE | 2023-04-16 13:40 | Hospitalist Progress Note ---
Date of Service April 16, 2023 Assessment & Plan (1) Hip fracture: Plan: Left hip fracture Left distal radial fracture Secondary to mechanical fall Hip X ray:Comminuted and displaced intertrochanteric fracture within the proximal left femur. Left Wrist:Comminuted intra-articular distal radial fracture. Degenerative changes are seen without definite carpal or metacarpal fractures. S/p Open Reduction Internal Fixation Left Hip by Dr. Forbes on 04/09/23 Pain control with bowel regimen Activity and wound care orders as per Ortho Per ortho - WBAT LLE and LUE with splint in place PT/OT recommending rehab - awaiting placement , CM involved 04/13 LLE incisions developed blisters likely 2/2 an allergy to the occlusive dressing. RN changed to a 4 x 4 and Medipore around all the surgical sites per ortho Hyponatremia Likely due to hypovolemia/dehydration Na+ 132 on 04/15 Monitor BMP Normocytic anemia Acute blood loss anemia as a result of multiple recent surgical procedures, R shoulder, L hip Normal vitamin B12, folate levels Serum iron slightly low Denies any bleeding issues hgb 7.3 04/10 with hemodynamic instability, pt with evidence of tachycardia and lower blood pressures and received 1 unit PRBC started Ferrous sulfate + vit C daily Eliquis resumed 04/13 Hgb at 7-8 Monitor CBC Sinus tachycardia Likely in setting of volume depletion improved after 1 unit prbc hold atenolol and placed on metoprolol tartrate 50mg bid likely can continue atenolol at discharge as long as resolved Recent right shoulder surgery Sling discontinued by Ortho Needs follow-up with orthopedics upon discharge Hypertension Due to episodes of hypotension, home amlodipine and lisinopril on hold Atenolol changed to metoprolol as above Hypothyroidism Chronic, stable Continue levothyroxine H/O Post Operative PE As per records Right breast cancer S/P surgery/radiation/Anastrozole Rx Prediabetes HbA1C 5.8 Past tobacco abuse As per records DVT PROPHYLAXIS On Eliquis Dispo - peer to peer completed today for acute rehab which was denied, approved for SNF, awaiting placement. Patient seen in collaboration with Dr. Cobian. Admission and Anticipated Discharge Date Admission Date: April 08, 2023 Supervising Physician Co-Signing Physician Notes Pt seen and examined by myself, Mojgan Cobian MD on the day of service. Care was coordinated with RENE Hooks. 78yoF seen after PT. Stated that she was tired. Otherwise denied acute concerns. Peer to peer to be completed for placement. Otherwise as above. Subjective Follow-up for left hip fracture, left radius fracture. Patient seen and examined. Reports pain is well controlled. Working with therapy. No chest pain or shortness of breath. Denies abdominal pain and nausea. Jeffers catheter remains in place. Physical Exam Constitutional: WD/WN, vitals as above no acute distress Respiratory: normal respiratory effort, lungs clear to auscultation Cardiovascular: Rate/Rhythm: regular rate and regular rhythm Vessels: normal peripheral pulses Extremities: no edema Gastrointestinal (Abdomen): Percussion/Palpation: abdomen soft; abdomen nontender Musculoskeletal: S/p left hip surgery, CSM checks intact LLE. Splint in place to left wrist. Skin: no rashes, warm and dry Neurologic: no focal motor deficits Psychiatric: A+Ox3, euthymic affect Results & Data Results & Data Vital Signs (Past 12 Hours) Vital Signs Temp Pulse Resp BP Pulse Ox O2 Del Method 04/16/23 07:40 36.9 C 83 16 113/65 93 Room Air
[2023-04-16] MEDS: MULTIVITAMIN TAB PO SCH (17:21)
[2023-04-17] MEDS: oxyCODONE HCL IR 5 MG TAB (IMMEDIATE RELEASE) PO PRN ×2 (04:18→09:51)
[2023-04-17] MEDS: LEVOTHYROXINE SODIUM 125 MCG TABLET PO SCH (05:34)
[2023-04-17 06:49] LABS: Hematocrit (blood only) 25.2 % (37.0-47.0); Hemoglobin 8.1 g/dl (12.0-16.0); Mean Corpuscular Hemoglobin 30.3 pg (25.0-34.0); Mean Corpuscular Hgb Conc 32.1 g/dL (32.0-36.0); Mean Corpuscular Volume 94.4 fL (80.0-100.0); Platelet Count 377 K/uL (130-400); RDW Coefficient of Variation 14.8 % (11.5-14.5); RDW Standard Deviation 50.6 fL (36.4-46.3); Red Blood Count 2.67 M/uL (4.20-5.40); White Blood Count 8.11 K/ul (4.8-10.8)
[2023-04-17 07:08] LABS: BUN Creatinine Ratio 19.1 (10-20); Creatinine Clr Calc Pharmacy 97.3 ml/min; Est GFR (African American) 108.1 ml/min; Est GFR (Non-African American) 93.3 ml/min; Potassium 4.4 mmol/L (3.5-5.1)
[2023-04-17 07:23] VITALS: BP 120/72; PULSE 96; RESP 18; TEMP 98.1; O2SAT 96
[2023-04-17] MEDS: METOPROLOL TARTRATE 50 MG TAB PO SCH (08:19)
[2023-04-17] MEDS: FAMOTIDINE 20 MG TAB PO SCH (08:19)
[2023-04-17] MEDS: APIXABAN 2.5 MG TAB PO SCH (08:19)
[2023-04-17] MEDS: DOCUSATE SODIUM 100 MG CAP PO SCH (08:19)
[2023-04-17] MEDS: ASCORBIC ACID 500 MG TAB PO SCH (08:19)
[2023-04-17] MEDS: CALCIUM 600MG + VIT D 400 IU TAB PO SCH (08:19)
[2023-04-17] MEDS: FERROUS SULFATE 325 MG TAB PO SCH (08:19)
--- NOTE | 2023-04-17 09:57 | Orthopedic Progress Note ---
Date of Service April 17, 2023 Assessment & Plan (1) Closed intertrochanteric fracture of left hip: With regards to her left hip she is doing okay. We decompressed the blisters which seem to be doing well. She has dressings in place. She can discontinue dressings once the incision sites appear to be dry. She can be weightbearing as tolerated on the left hip. With regards to her left wrist she can be weightbearing as tolerated on the left wrist. It is a nondisplaced fracture in which Dr. Forbes feels would be safe to allow weightbearing to this. If she feels comfortable putting some weight on it with the splint, that will be okay. She can use a normal walker as tolerated without brace. With regards to her right shoulder, we can discontinue the sling. She can be full weightbearing as tolerated on the right shoulder. She is now 3 weeks out. Hopefully, by making her weightbearing as tolerated on both her left wrist and her right arm, she can work a little more with ambulation and transfers. She is orthopedically stable for discharge when medically ready. Eliquis 2.5 mg twice a day for DVT prophylaxis. Possible discharge today to [facility] care. Subjective Patient was seen this morning resting comfortably bedside in her chair in no apparent distress. She notes that since being able to put weight to the bilateral upper extremities with physical therapy, she feels physical therapy has been going better for her.. She did state that she did a little bit of exercise on her own while she was in bed over the weekend. She denies any draining from her surgical site today. She is eager to be discharged hopefully today to [facility] care. Review of Systems All systems reviewed & are unremarkable except as noted in HPI & below. Physical Exam .Focused exam of the left hip shows dressings are clean, dry, and intact. No signs of active bleeding, discharge, or signs of infection. Blisters were decompressed over the weekend with no obvious signs of infection. She does have full extension of her left leg but does have discomfort with movement. Plantarflexion and dorsiflexion intact of the left ankle. +2 DP and PT pulses. Less than 2-second capillary refill. Normal sensation. Neurovascular intact. Results & Data Results & Data Laboratory Results . Diagnostic Findings . PG Care Time/CCT Total # of Minutes Spent Total Time Spent with Patient: Total time spent is greater than 50% in coordination of care (as documented) at patient's floor/unit and/or counseling patient: Coding Level of Care Code 80960 Post Operative Follow-Up Diagnoses Closed intertrochanteric fracture of left hip S72.142A Encounter type: initial encounter Fracture alignment: displaced (1) Closed intertrochanteric fracture of left hip Encounter type: initial encounter Fracture alignment: displaced Qualified Code(s): S72.142A - Displaced intertrochanteric fracture of left femur, initial encounter for closed fracture
[2023-04-17] MEDS ORDERED: KETOROLAC TROMETHAMINE 15 MG/ML VIAL IV ONE (12:55)
[2023-04-17] MEDS: ACETAMINOPHEN 325 MG TAB PO PRN (12:57)
--- NOTE | 2023-04-17 13:02 | Discharge Summary ---
Date of Service April 17, 2023 Admission HPI Per Admitting Provider History obtained from patient, family, and records. Medical history significant for hypertension, hyperlipidemia, hypothyroidism, GERD, history of postop PE, right breast cancer status post surgery/radiation/anastrozole Rx, past tobacco abuse. Last confinement 2016 under Orthopedics service for elective right total knee arthroplasty. Patient underwent outpatient right shoulder surgery 2 weeks ago. No postop concerns at home. Patient tripped on her own feet today while doing some household cleaning. Subsequent fall landing on her left side resulting in achy left forearm and left hip pain. Left leg looked deformed as per patient. No head trauma, LOC, no chest pain, no SOB. Denies black/bloody stools/overt bleeding at home. Patient told by not to get up. Patient brought to ER for evaluation by EMS. Medical History as above Surgical History : Carpal tunnel surgeries, cholecystectomy, partial mastectomy right, shoulder surgeries, cataract surgeries, inguinal hernia repair, MITCHEL Family History : Lung cancer, heart disease Personal/Social history : Past tobacco abuse, no EtOH intake, retired high school guidance counselor Baseline Functionality : Still able to do housework at home without rest/exertional chest pain, S OB prior to injury Admission Exam Per Admitting Provider GENERAL: Comfortable, pleasant, obese, no respiratory distress SKIN: Pallor, warm HEENT: Pale palpebral conjunctivae, no ptosis, dry buccal mucosa NECK : Supple, no tenderness CHEST : Decreased breath sounds, no tenderness HEART : RRR, no obvious murmurs ABDOMEN: Some distention, nontender EXTREMITIES : Minimal LE swelling, left hip tenderness, LUE splint, right shoulder sling, no other conspicuous deformities noted NEUROLOGIC : Coherent, no facial asymmetry, no other gross focality Principal Diagnosis Left intertrochanteric proximal femur fracture Left intra-articular distal radial fracture Discharge Exam Constitutional WD/WN, vitals as above no acute distress Respiratory normal respiratory effort, lungs clear to auscultation Cardiovascular Rate/Rhythm: regular rate and regular rhythm Vessels: normal peripheral pulses Extremities: + edema (Trace edema BLE) Gastrointestinal (Abdomen) Percussion/Palpation: abdomen soft; abdomen nontender Musculoskeletal S/p left hip surgery, dressing in place with some staining noted. CSM checks intact LLE. Left wrist in splint, CSM checks intact. Skin no rashes, warm and dry Neurologic no focal motor deficits Psychiatric A+Ox3, euthymic affect Discharge Data Allergies Allergy/AdvReac Type Severity Reaction Status Date / Time adhesive Allergy Intermediate bandaids- Verified 04/09/23 13:01 redness, pruritus Penicillins Allergy Intermediate rash, Verified 04/09/23 13:01 mouth sores Consultations 04/08/23 20:20 ED Decision to Admit Stat Procedures Performed Operation Date: 04/09/23 08:50 Actual Procedures p Open Reduction Internal Fixation Left Hip(Left) - Elliott Forbes DO Ordered Studies 04/09/23 13:00 FL hip LT 2-3V Routine Hip/Pelvis X-Ray 04/08/23 18:27 XR hip LT 2V w pelvis CLINICAL HISTORY: Left hip pain. Fall. COMPARISON STUDY: Pelvis 10/28/2019. FINDINGS: Comminuted and displaced intertrochanteric fracture within the proximal left femur. No dislocation of the left femoral head. The bones are osteopenic. No acute fracture or dislocation within the pelvis or right hip. There is a right total arthroplasty. The hardware appears intact. IMPRESSION: Comminuted and displaced intertrochanteric fracture within the proximal left femur. ACT 112: Negative or not required by law. Electronically signed by: Willie Henriquez M.D. 04/09/2023 7:02 AM Wrist X-Ray 04/08/23 18:27 XR wrist LT min 3V routine CLINICAL HISTORY: pain fall TECHNIQUE: 4 views of the left wrist were obtained. Comparison: None available at the time of this dictation. FINDINGS: There is a comminuted intra-articular fracture of the distal radial metadiaphysis with overriding of fragments Osteophyte formation and joint space narrowing is seen. No soft tissue abnormality is seen. IMPRESSION: Comminuted intra-articular distal radial fracture. Degenerative changes are seen without definite carpal or metacarpal fractures. ACT 112: Negative or not required by law. Electronically signed by: Jose Antonio Bajwa M.D. 04/08/2023 8:02 PM Chest X-Ray 04/08/23 19:45 XR chest 1V portable CLINICAL HISTORY: preop TECHNIQUE: Single frontal radiograph of the chest was obtained. 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 Cardiomegaly is noted. The aortic arch is calcified. The lungs are clear. No evidence of pleural effusion or pne umothorax. IMPRESSION: No acute chest disease. ACT 112: Negative or not required by law. Electronically signed by: Jose Antonio Bajwa M.D. 04/08/2023 8:01 PM Hip X-Ray 04/09/23 13:00 INTRAOPERATIVE RADIOGRAPHS CLINICAL HISTORY: Open reduction and internal fixation of the left proximal femur. Fluoro time: 105 seconds Ka,r: 24.75 mGy FINDINGS: 6 spot fluoroscopic views of the left femur are correlated with radiographs dated 04/08/2023. Intertrochanteric and intramedullary nails have been placed transfixing an intertrochanteric/subtrochanteric fracture of the left proximal femur. Near-anatomic alignment is restored, with mild persistent offset of the largest fragments. A single cortical lag screw transfixes the distal end of the intramedullary nail. A left knee arthroplasty is in place. IMPRESSION: Intraoperative images from open reduction and internal fixation of the left proximal femur as above. Electronically signed by: Fred Eden M.D. 04/09/2023 4:01 PM Femur X-Ray 04/09/23 16:50 LEFT FEMUR 2 VIEWS CLINICAL HISTORY: Postoperative examination. FINDINGS: AP and crosstable lateral portable views of the left femur are compared to study dated 04/08/2023. The skeletal structures are osteopenic. There has been intertrochanteric and intramedullary nail fixation of a comminuted intertrochanteric/subtrochanteric fracture of the left proximal femur with advent of near-anatomic alignment. There is mild persistent offset of the largest fragments. The orthopedic hardware appears intact. A single cortical lag screw transfixes the distal end of the intramedullary nail. No new fracture is seen. The visualized left hemipelvis appears intact. Skin clips, soft tissue swelling, and subcutaneous gas overlying the left femur are expected postsurgical changes. A left knee arthroplasty is in place. IMPRESSION: Expected postsurgical findings status post intertrochanteric and intramedullary nail fixation of a left proximal femoral fracture as above. Electronically signed by: Fred Eden M.D. 04/09/2023 5:48 PM Hospital Course (1) Hip fracture: Left hip fracture Left distal radial fracture Secondary to mechanical fall Hip X ray:Comminuted and displaced intertrochanteric fracture within the proximal left femur. Left Wrist:Comminuted intra-articular distal radial fracture. Degenerative changes are seen without definite carpal or metacarpal fractures. S/p Open Reduction Internal Fixation Left Hip by Dr. Forbes on 04/09/23 Pain control with bowel regimen Activity and wound care orders as per Ortho Per ortho - WBAT LLE and LUE with splint in place PT/OT recommending rehab Due to significantly reduced mobility, will leave Jeffers catheter in place at discharge 04/13 LLE incisions developed blisters likely 2/2 an allergy to the occlusive dressing. RN changed to a 4 x 4 and Medipore around all the surgical sites per ortho Eliquis 2.5 mg BID x 6 weeks for DVT prophylaxis per Ortho Hyponatremia Na+ 132 on 04/11 Likely due to hypovolemia/dehydration Na+ 135 on 04/17 Normocytic anemia Acute blood loss anemia as a result of multiple recent surgical procedures, R shoulder, L hip Normal vitamin B12, folate levels Serum iron slightly low Denies any bleeding issues hgb 7.3 on 04/10 with hemodynamic instability, pt with evidence of tachycardia and lower blood pressures and received 1 unit PRBC started Ferrous sulfate + vit C daily Eliquis resumed 04/13 Hgb at 7-8 Hgb 8./14 Sinus tachycardia Likely in setting of volume depletion improved after 1 unit prbc Metoprolol tartrate 50 mg twice daily started in favor of atenolol Recent right shoulder surgery Sling discontinued by Ortho Needs follow-up with orthopedics upon discharge Hypertension Due to episodes of hypotension, home amlodipine and lisinopril on hold Atenolol changed to metoprolol as above Hypothyroidism Chronic, stable Continue levothyroxine H/O Post Operative PE As per records Right breast cancer S/P surgery/radiation/Anastrozole Rx Prediabetes HbA1C 5.8 Past tobacco abuse As per records Total Time Total Time Spent Total Time Spent (In Minutes): 40 Discharge Plan Discharge Items Patient Disposition: Transfer Long-Term Fac Reason For Visit: L HIP FRACTURE Discharge Diagnosis: Proximal femur intertrochanteric fracture Intra-articular distal radial fracture Activity: As commented below Non-emergency contact: Primary Care Provider and Surgeon Call non-emergency contact if: you have any medication questions and your symptoms worsen Follow-up/Referrals: Elliott Forbes DO [Physician] - Azucena Hernández MD [Primary Care Provider] - Diet: Heart Healthy Addtl Attending Provider Instructions: Patient presented after mechanical fall and left hip and left wrist pain. Found to have proximal left femur intertrochanteric fracture and left intra- articular distal radial fracture. S/p Open Reduction Internal Fixation Left Hip by Dr. Forbes on 04/09/23 Nonoperative management of distal radial fracture. Weight-bear as tolerated with splint in place. Due to significantly reduced mobility, Jeffers catheter will be left in place at discharge. Due to hypotension, home amlodipine and lisinopril were placed on hold. Continue to hold at discharge. Metoprolol started in favor of atenolol. Addtl Strip Presser Provider Instructions: ORTHOPEDIC INSTRUCTIONS Hip Fracture Activity and Therapy Recommendations: 1. She may be weightbearing as tolerated on the right arm. The shoulder sling has been discontinued. 2. She may be weightbearing as tolerated on the left wrist. The splint will be in place for about 2 weeks but she cannot put full weight on it as pain allows while she is in the splint. I think this will make it easier for her to ambulate with a walker. 3. She can be weightbearing as tolerated on the left hip. Medications: 1. Narcotic You will likely be sent from the hospital with the narcotic pain medication that worked best throughout your stay. 2. Eliquistake Eliquis 2.5 mg twice a day for 6 weeks to help prevent blood clots. 3. Other medications may be given for specific circumstances. If you have any questions, please call the office at [phone]. 4. Resume previous home medications unless otherwise instructed TEDs/Elastic Stockings: The white elastic stockings help limit swelling and prevent blood clots from forming in your legs. The more you wear them, the more they work. Wear them for six weeks. Dressing Care: [place] can be open to air as long as the incisions are not draining. If the incisions are draining or if the nickolas are getting caught on your clothes then please cover the nickolas with dry gauze. Change the dressings as necessary to keep the incision as dry as possible Showering: You may shower 5 days from the day of surgery as long as the incisions are not draining. Do not soak the incision. Let soapy water run over the nickolas and pat them dry. Things To Watch For: 1. Drainage from the incision site that occurs more than one week after your surgery. 2. Increased redness at the incision site. 3. Fever above 102 degrees Fahrenheit. 4. Unusual chest pain or shortness of breath. 5. Call [facility] at with any of the above problems Follow-Up Visit: Follow-up with Dr. Forbes's PA (Elliott Renae) 2-3 weeks after your day of surgery. He will remove your nickolas and answer any questions. If you have any additional questions or concerns, Dr Forbes is usually in the office at the same time and will be available Please call the office to set up an appointment for a time that works for you. Pending Studies at Discharge: No Stand-Alone Forms: My [facility] Skilled Items Patient informed of condition?: Yes DNR: No Discharge Level of Care: Skilled Communicable Disease: No Discharge Prognosis: Stable Lines: None Urinary Catheter: Yes Medications and DC Order Prescriptions: New Eliquis 2.5 mg Tablet 2.5 mg PO BID 35 Days Qty: 70 0RF polyethylene glycol 3350 [Miralax] 17 gram Powder In Packet 17 g PO DAILY Qty: 14 0RF metoprolol tartrate 50 mg Tablet 50 mg PO BID Qty: 14 0RF docusate sodium 100 mg Capsule 100 mg PO BID Qty: 14 0RF ferrous sulfate 325 mg (65 mg iron) Tablet,Delayed Release (Dr/Ec) 325 mg PO QAM Qty: 7 0RF oxycodone 5 mg Tablet 5 - 10 mg PO QID PRN (Reason: pain) Qty: 10 0RF ascorbic acid (vitamin C) [Vitamin C] 500 mg Tablet 500 mg PO QAM Qty: 7 0RF Continued multivitamin Tablet 1 tab PO QDD glucosamine-chondroitin [Osteo Bi-Flex] 250-200 mg Tablet 1 tab PO BID Calcium 600 + D(3) 600 mg calcium- 200 unit Capsule 1 cap PO QAM hyoscyamine sulfate [Levsin] 0.125 mg Tablet 0.125 mg PO Q4H PRN (Reason: IRRITABLE BOWEL) diphenhydramine HCl 25 mg Capsule 25 mg PO Q6H PRN (Reason: ALLERGIES) aspirin 81 mg Tablet,Delayed Release (Dr/Ec) 81 mg PO HS levothyroxine 125 mcg Tablet 125 mcg PO QAM famotidine 20 mg Tablet 20 mg PO QAM tramadol 50 mg tablet 50 mg PO Q6H PRN (Reason: pain) Qty: 30 0RF Discontinued atenolol 50 mg Tablet 50 mg PO QAM lisinopril 40 mg Tablet 40 mg PO QAM amlodipine 5 mg Tablet 5 mg PO QAM Discharge Orders: Discharge Order (Routine); Ordered 04/17/23 Ordered By: Camelia Kelly Admission Data Admit Date/Time: 04/08/23 21:47 Attending Provider: Mojgan Cobian Admit Provider: Jeff Ellis Primary Care Provider: Azucena Hernández Other Providers: Jeff Ellis; Elliott Forbes; [place] Other Interventions: Discharge Summary Assessment (RN) Last Done: 04/17/23 13:46 Supervising Physician Co-Signing Physician Notes Pt seen and examined by myself, Mojgan Cobian MD on the day of service. Care was coordinated with RENE Hooks. 78yoF with left hip and left wrist fractures. Had surgical repair of the left hip. Also noted hypotension, held amlodipine and lisinopril at discharge, consider re-start after further BP monitoring. Switched from atenolol 50mg qAM to metoprolol 50mg BID, continue to monitor BP after discharge. Otherwise as above.
--- NOTE | 2023-04-25 08:01 | Operative Report ---
PG Post Operative Report Pre & Post Diagnosis Operation Date: 04/09/23 08:50 Pre-Op Diagnosis: Left Hip Fracture Post-Op Diagnosis: Left Hip Fracture I identified the patient and participated in the time-out.: Yes Procedure Operation Date: 04/09/23 08:50 Actual Procedures p intramedullary nail l Fixation Left Hip(Left) - Elliott Forbes DO Surgeon Elliott Forbes DO Tram Inspector Elliott Renae PA-C Estimated Blood Loss 50 Findings Consistent with Post-Op Diagnosis Specimens None Description of Procedure Dennise was brought down from her hospital room to the preoperative holding area. The operative extremity identified and signed. She was given a preoperative antibiotic and a spinal anesthetic. She was taken back to the op erating room and laid on the fracture table in the supine position. The left leg was brought out to traction. Fluoroscopic imaging was used to help reduce the fracture. Once the fracture was properly reduced, the left hip was prepped and draped in sterile fashion. A timeout was done. The patient and the operative extremity was properly identified. A longitudinal incision was made just superior to the greater trochanter. Dissection was taken down through the fascia. A guidepin was placed at the tip of the greater trochanter and advanced into the femoral canal. A 17 mm opening reamer was used to open the femoral canal. A guidewire was then placed down the femoral shaft to the distal femur. The intramedullary nail measured to be 380 mm. A Synthes TFN nail 11 inch diameter and 380 mm length was then impacted into place. Fluoroscopic images were used to ensure anatomic alignment of the fracture. An outrigger was placed and a small incision was made in the lateral thigh. A cannula was advanced to the lateral cortex. A guidepin was then placed into the center center position of the femoral head. The lateral cortex was drilled. A helical blade was then impacted into place. This part was done under fluoroscopy assistance to ensure no penetration of the helical blade. The locking screw was then tightened. The outrigger was removed. Fluoroscopic images of the hip showed acceptable alignment of the fracture without any penetration of the hardware. Attention was then turned to the distal femur. A distal locking screw was then placed using perfect tetlin technique. The wounds were then irrigated. The deep fascia was closed with #1 Vicryl. Skin was closed with 2-0 Vicryl and nickolas. She was then placed in a soft dressing. She was then transferred to a hospital bed and taken to the postanesthesia care unit in stable condition. She tolerated the procedure well. Elliott Renae PA-C, was present for the entire procedure. He was critical for patient positioning, prepping, draping, retraction exposure, wound closure and application of sterile dressing. I attest to the content of the Intraoperative Record and any orders documented therein. Any exceptions are noted below.
== END 2023-04-17 14:12 | DRG 481 ==
LOC: ED 17:55 → 3E 21:47 → SUATTDRO 21:47 → 3E 04-09 00:11
DX: Z92.29 Personal history of other drug therapy; E03.9 Hypothyroidism, unspecified; Y74.1 Therapeutic (nonsurgical) and rehabilitative general hospital and personal-use devices associated with adverse incidents; D64.9 Anemia, unspecified; Y84.8 Other medical procedures as the cause of abnormal reaction of the patient, or of later complication, without mention of misadventure at the time of the procedure; Z88.0 Allergy status to penicillin; E86.1 Hypovolemia; E78.5 Hyperlipidemia, unspecified; R73.03 Prediabetes; S72.142A Displaced intertrochanteric fracture of left femur, initial encounter for closed fracture; Z87.891 Personal history of nicotine dependence; I10 Essential (primary) hypertension; Y93.E5 Activity, floor mopping and cleaning; Z96.611 Presence of right artificial shoulder joint; E87.1 Hypo-osmolality and hyponatremia; Z98.890 Other specified postprocedural states; K21.9 Gastro-esophageal reflux disease without esophagitis; Z79.890 Hormone replacement therapy; S52.572A Other intraarticular fracture of lower end of left radius, initial encounter for closed fracture; Z92.3 Personal history of irradiation; Z85.3 Personal history of malignant neoplasm of breast; Z91.048 Other nonmedicinal substance allergy status; Z86.711 Personal history of pulmonary embolism; Z79.82 Long term (current) use of aspirin; Z79.899 Other long term (current) drug therapy; W01.0XXA Fall on same level from slipping, tripping and stumbling without subsequent striking against object, initial encounter; R82.4 Acetonuria; T78.49XA Other allergy, initial encounter; D62 Acute posthemorrhagic anemia